=== PATIENT | male | born 1950 | race Caucasian/White ===

== ENCOUNTER → 2020-08-06 14:30 | Outpatient (BNVA) | payer MEDICARE, OTHER, SELFPAY | PROVIDERS: Family Provider Family Medicine; PCP Family Medicine; Visit Provider Podiatrist Foot & Ankle Surgery | DX: M79.671 Pain in right foot (principal); M19.071 Primary osteoarthritis, right ankle and foot | CPT/HCPCS: 73620; 73630 ==

== ENCOUNTER 2021-07-17 15:23 | Outpatient (CLI) | payer OTHER, SELFPAY ==
--- NOTE | 2021-07-17 15:26 | USCV_ITS ---
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
== END 2021-07-17 15:24 | disposition home or self-care (01) ==
LOC: US 15:25
PROVIDERS: PCP Emergency Medicine Emergency Medical Services; Visit Provider Podiatrist Foot & Ankle Surgery
DX: R09.89 Other specified symptoms and signs involving the circulatory and respiratory systems (principal)
CPT/HCPCS: 93923

== ENCOUNTER → 2021-08-27 14:56 | Outpatient (BNVA) | payer OTHER, SELFPAY | PROVIDERS: PCP Emergency Medicine Emergency Medical Services; Referring Provider Emergency Medicine Emergency Medical Services; Visit Provider Specialist | DX: G56.03 Carpal tunnel syndrome, bilateral upper limbs (principal); G56.23 Lesion of ulnar nerve, bilateral upper limbs; Z87.891 Personal history of nicotine dependence | CPT/HCPCS: 95910 ==

== ENCOUNTER 2021-10-23 06:00 | Outpatient (RCR) | payer OTHER, SELFPAY | END 2021-11-22 23:59 | disposition home or self-care (01) | LOC: TOT 06:00 | PROVIDERS: PCP Emergency Medicine Emergency Medical Services; Referring Provider Emergency Medicine Emergency Medical Services; Visit Provider Emergency Medicine Emergency Medical Services | DX: S65.00 Unspecified injury of ulnar artery at wrist and hand level (principal); X58.XXXA Exposure to other specified factors, initial encounter | CPT/HCPCS: 97110; 97165 ==

== ENCOUNTER 2021-11-23 06:00 | Outpatient (RCR) | payer OTHER, SELFPAY | END 2021-12-23 23:59 | disposition home or self-care (01) | LOC: TOT 06:00 | PROVIDERS: PCP Emergency Medicine Emergency Medical Services; Referring Provider Emergency Medicine Emergency Medical Services; Visit Provider Emergency Medicine Emergency Medical Services | DX: S65.00 Unspecified injury of ulnar artery at wrist and hand level (principal) | CPT/HCPCS: 97110; 97165 ==

== ENCOUNTER 2021-12-24 06:00 | Outpatient (RCR) | payer OTHER, SELFPAY | END 2022-01-20 23:59 | disposition home or self-care (01) | LOC: TOT 06:00 | PROVIDERS: PCP Emergency Medicine Emergency Medical Services; Referring Provider Emergency Medicine Emergency Medical Services; Visit Provider Emergency Medicine Emergency Medical Services | DX: S65.00 Unspecified injury of ulnar artery at wrist and hand level (principal) | CPT/HCPCS: 97110 ==

== ENCOUNTER 2022-01-21 06:00 | Outpatient (RCR) | payer OTHER, SELFPAY | END 2022-02-20 23:59 | disposition home or self-care (01) | LOC: TOT 06:00 | PROVIDERS: PCP Emergency Medicine Emergency Medical Services; Referring Provider Emergency Medicine Emergency Medical Services; Visit Provider Emergency Medicine Emergency Medical Services | DX: S65.00 Unspecified injury of ulnar artery at wrist and hand level (principal); X58.XXXD Exposure to other specified factors, subsequent encounter | CPT/HCPCS: 97110; 97168 ==

== ENCOUNTER 2022-02-21 06:00 | Outpatient (RCR) | payer OTHER, SELFPAY | END 2022-03-22 23:59 | disposition home or self-care (01) | LOC: TOT 06:00 | PROVIDERS: PCP Emergency Medicine Emergency Medical Services; Referring Provider Emergency Medicine Emergency Medical Services; Visit Provider Emergency Medicine Emergency Medical Services | DX: S65.00 Unspecified injury of ulnar artery at wrist and hand level (principal); X58.XXXD Exposure to other specified factors, subsequent encounter | CPT/HCPCS: 97110; 97165 ==

== ENCOUNTER → 2022-03-19 14:09 | Outpatient (BNVA) | payer OTHER, SELFPAY | PROVIDERS: PCP Emergency Medicine Emergency Medical Services; Visit Provider Surgery | DX: D50.9 Iron deficiency anemia, unspecified (principal) | CPT/HCPCS: 99213 ==

== ENCOUNTER → 2022-05-05 12:39 | Outpatient (BNVA) | payer OTHER, SELFPAY | PROVIDERS: PCP Emergency Medicine Emergency Medical Services; Visit Provider Specialist | DX: G56.03 Carpal tunnel syndrome, bilateral upper limbs (principal) | CPT/HCPCS: 73110; 80053; 85651; 86140; 86160; 86162; 86200; 86235; 86255; 86376; 86431; 99204 ==

== ENCOUNTER → 2022-06-04 13:12 | Outpatient (BNVA) | payer OTHER, SELFPAY | PROVIDERS: PCP Emergency Medicine Emergency Medical Services; Visit Provider Specialist | DX: G56.03 Carpal tunnel syndrome, bilateral upper limbs (principal); M79.641 Pain in right hand; M79.642 Pain in left hand | CPT/HCPCS: 99214 ==

== ENCOUNTER 2022-06-04 16:22 | Outpatient (CLI) | payer OTHER, SELFPAY | END 2022-06-04 16:23 | disposition home or self-care (01) | LOC: SPT 16:22 | PROVIDERS: PCP Emergency Medicine Emergency Medical Services; Visit Provider Specialist | DX: Z46.89 Encounter for fitting and adjustment of other specified devices (principal); G56.03 Carpal tunnel syndrome, bilateral upper limbs | CPT/HCPCS: 97760; L3908 ==

== ENCOUNTER 2022-07-04 12:39 | Day surgery (SDC) | payer OTHER, SELFPAY ==
[2022-07-03 14:11] VITALS: BMI 21.3
--- NOTE | 2022-07-04 13:09 | P.HPUD_ITS ---
Surgery/Procedure H&P Update DATE OF PROCEDURE: July 04, 2022 DATE H&P PERFORMED: 06/04/22 H&P UPDATE INFORMATION: I have reviewed H&P completed within last 30 days, I have examined patient prior to procedure, No changes to prior documentation and H&P is in [facility] EMR on date indicated PREOP DIAGNOSIS: Left carpal tunnel syndrome PLANNED PROCEDURE: Operation Date: 07/04/22 14:10 Proposed Procedures p LEFT CARPAL TUNNEL RELEASE 98728,G56.00(Left) - Kathrine Keane MD Related Problem List Diagnoses (1) Carpal tunnel syndrome, left:
--- NOTE | 2022-07-04 13:10 | P.ANESASSM_ITS ---
Pre-Anesthetic Assessment Height/Weight: Height 1.68 m Weight 59.874 kg O2 Del Method 07/04/22 12:59 Preop Diagnosis: Left carpal tunnel syndrome Operation Date: 07/04/22 14:10 Proposed Procedures p LEFT CARPAL TUNNEL RELEASE [id number],G56.00(Left) - Kathrine Keane MD Familial anesthetic complications: none Was Beta Harry taken within 24 hours: Yes Was Clonidine taken within 24 hours: N/A Last intake: Intake Last Liquid Date 07/04/22 Last Liquid Time 10:00 Last Solid Date 07/03/22 Last Solid Time 00:00 Social No alcohol and No tobacco Exam alert, oriented x 3, clear to auscultation bilaterally and regular rate & rhythm Airway Mallampati: Class III Dentition: loose Comments: Comments: teeth my come out during procedure - patient aware Pulmonary None reported CV/HEM Hypertension vasospasm of arteries Metabolic Hyperlipidemia Anesthetic Plan ASA status: 3 Anesthesia: MAC and Regional (specify below) Risk of > 500 ml blood loss (7ml/kg in children): No Medications/Allergies Home Medications Medication Instructions Recorded Confirmed Last Taken Type aspirin 81 mg tablet,delayed 81 mg PO DAILY 07/03/20 07/04/22 07/04/22 03:00 History release (Adult Low Dose Aspirin) isosorbide mononitrate 30 mg 30 mg PO DAILY 01/24/21 07/04/22 07/03/22 19:00 History tablet,extended release 24 hr metoprolol tartrate 50 mg tablet 25 mg PO DAILY 01/24/21 07/04/22 07/04/22 History nitroglycerin 0.4 mg sublingual 0.4 mg sublingual Q5M PRN Chest 01/24/21 07/03/22 Unknown History tablet Pain simvastatin 20 mg tablet 20 mg PO DAILY 01/24/21 07/04/22 07/03/22 History Work shoes with Custom Molded #1 ea 09/13/21 06/04/22 Unknown Rx Orthotics COCK UP SPLINT #1 ea 06/04/22 06/04/22 Unknown Rx Allergies Allergy/AdvReac Type Severity Reaction Status Date / Time No Known Allergies Allergy Verified 06/05/22 08:30 [facility] Anesthesia Medical History Accelerated hypertension Blood vessel spasm CAD (coronary artery disease) High cholesterol History of coronary angiogram Hyperlipidemia Low back pain Surgical History History of colonoscopy Hx of hernia repair Family History Grandmother Diabetes Grandfather CAD (coronary artery disease) Mother Diabetes Denies family history of Hypertension Social History Smoking and tobacco status: former smoker Alcohol intake: former Current occupational status: retired Data Anesthesia Cardiac Studies: No Data to Display
[2022-07-04] MEDS: CELEcoxib 200 mg Capsule 400 MG PO (13:13)
[2022-07-04] MEDS: acetaminophen 1,000 MG/100 ML PIGGYBACK 400 MG IV (13:13)
[2022-07-04] MEDS: sodium chloride 0.9% 1,000 ML 30 ML IV (13:13)
[2022-07-04] MEDS: ceFAZolin 2,000 MG in sodium chloride 0.9% (plus) 50 ML 100 MG IV (13:20)
[2022-07-04 14:26] VITALS: BP 120/53; PULSE 51; RESP 16; TEMP 36.2; O2SAT 100
[2022-07-04 14:30] VITALS: BP 117/52; PULSE 51; RESP 16; O2SAT 99
[2022-07-04 14:35] VITALS: BP 133/57; PULSE 49; RESP 16; O2SAT 98
--- NOTE | 2022-07-04 14:38 | ANE.PACU2 ---
Inpatient post-anesthesia follow up: Airway intact: Yes Vital signs: Temperature 97.1 F Pulse Rate 49 Respiratory Rate 16 Blood Pressure 133/57 Pulse Oximetry 98 Oxygen Delivery Me thod Room Air Oxygen Flow Rate Fraction of Inspir ed Oxygen Hydration adequate: Yes Nausea and vomiting: No Pain level: 1 Mental status: Baseline
[2022-07-04 14:42] VITALS: BP 145/70; PULSE 49; RESP 16; TEMP 36.1; O2SAT 100
[2022-07-04 14:45] VITALS: BP 150/74; PULSE 48; RESP 16; TEMP 36.6; O2SAT 98
--- NOTE | 2022-07-04 14:47 | P.OP_ITS ---
Operative Report Date of procedure: July 04, 2022 Pre-op diagnosis: Left carpal tunnel syndrome Post-op diagnosis: Left carpal tunnel syndrome Procedure done: Left carpal tunnel release Pathology: none sent Surgeon: Kathrine Keane Mold Maker Plastic Molds: None Anesthesia: MAC (With [place] block, ASA 3) Estimated blood loss (mL): 1 Tourniquet time (min): 35 (At 250 mmHg) IV fluids (mL): 700 Urine output (mL): 0 (No [place]aux) Complications: None Findings: Compression across the carpal canal consistent with carpal tunnel syndrome Condition: stable Disposition: PACU (Then discharge home with family) Brief History: This 71-year-old gentleman presented with complaints consistent with carpal tunnel syndrome. He had numbness and tingling for at least the past 2 years. At times, his fingers will actually also become numb and turn white . He does have decreased sensation to all fingers and at times burning sensation. EMG and nerve conduction study confirmed moderately severe entrapment of the median nerve bilaterally as well as bilateral ulnar neuropathy at the elbow. Risks and complications were discussed with the patient, and he wished to proceed with surgical intervention. Consents were signed. Procedure: The patient was brought to the operating theater. He had a Gerard block with MAC. The tourniquet was elevated to 250 mmHg for a total tourniquet time of 35 minutes. The patient was also given Ancef 2 g preoperatively. The arm was then prepped and draped with DuraPrep in usual fashion with the arm draped free. A surgical pause was performed. At the time, the surgical pause, we confirmed the site and side of surgery. We also confirmed the patient's identity, appropriate and timely administration of preoperative antibiotics and preoperative surgical markings. An incision was then made along the thenar crease. The incision crossed the wrist joint in a curvilinear fashion. Dissection continued through skin and soft tissues using a scalpel. The palmaris longus was identified along with the transverse carpal ligament. Each of these was released carefully to avoid injury to the median nerve. We were able to dissect gently into the carpal canal which was noted to be quite tight with significant compression across the median nerve. The canal was subsequently palpated to assure there was no bony encroachment upon the nerve. There was a quite thickened fibrous tissue within the canal, and this was opened longitudinally as well. The canal was then palpated distally and proximally to assure that my small finger was passed easily without impingement. Finding this to be so, attention was directed to closure. The wound was irrigated with ropivacaine plain. It was then closed with 3-0 nylon in an interrupted mattress fashion. Sterile dressing was then placed consisting of Dermabond, OpSite, fluffed fluffs, sterile soft roll, and an Burke w rap. The tourniquet was released after 35 minutes. There were no complications. There were no specimens. The procedure was well tolerated. Plan is the patient will be discharged home. Related Problem List Diagnoses (1) Carpal tunnel syndrome, left:
[2022-07-04 15:00] VITALS: BP 151/75; PULSE 50; RESP 17; TEMP 36.6; O2SAT 99
--- NOTE | 2022-07-04 15:57 | SUR.PHASEII ---
[address] home and instructed pt with help of dr Keane that he needs his to drive him home and pt verbalized understanding [facility] called and spoke with Jolynn and she stated that the prescription for hydrocodone has not been processed and she would cancel this prescription.
== END 2022-07-04 16:10 | disposition home or self-care (01) ==
PROVIDERS: PCP Emergency Medicine Emergency Medical Services; Visit Provider Specialist
PROC: (CPT 64721; principal; 2022-07-04 14:00)
DX: G56.02 Carpal tunnel syndrome, left upper limb (principal); I10 Essential (primary) hypertension; E78.5 Hyperlipidemia, unspecified; Z79.82 Long term (current) use of aspirin; I25.10 Atherosclerotic heart disease of native coronary artery without angina pectoris; Z87.891 Personal history of nicotine dependence
CPT/HCPCS: 64721; J2704; J3010; J3490; J7030

== ENCOUNTER → 2022-07-16 14:48 | Outpatient (BNVA) | payer OTHER, SELFPAY | PROVIDERS: PCP Emergency Medicine Emergency Medical Services; Visit Provider Specialist | DX: G56.02 Carpal tunnel syndrome, left upper limb (principal) | CPT/HCPCS: 99024 ==

== ENCOUNTER → 2022-08-06 12:27 | Outpatient (BNVA) | payer OTHER, SELFPAY | PROVIDERS: PCP Emergency Medicine Emergency Medical Services; Visit Provider Internal Medicine | DX: D50.9 Iron deficiency anemia, unspecified (principal); M47.892 Other spondylosis, cervical region; I10 Essential (primary) hypertension; E78.5 Hyperlipidemia, unspecified; Z79.899 Other long term (current) drug therapy; R76.8 Other specified abnormal immunological findings in serum; M79.641 Pain in right hand; M79.642 Pain in left hand; Z11.59 Encounter for screening for other viral diseases; H33.302 Unspecified retinal break, left eye | CPT/HCPCS: 36415; 72040; 73120; 82550; 82607; 83735; 84100; 84443; 86704; 86803; 87340; 99204 ==

== ENCOUNTER 2022-11-10 01:00 | Day surgery (SDC) | payer OTHER, SELFPAY ==
[2022-11-06 09:41] VITALS: BMI 21.7
== END 2022-11-10 23:00 | disposition home or self-care (01) ==
LOC: GILAB 12-23 14:52
PROVIDERS: PCP Emergency Medicine Emergency Medical Services; Visit Provider Surgery
DX: I73.9 Peripheral vascular disease, unspecified (principal); L85.1 Acquired keratosis [keratoderma] palmaris et plantaris; M21.621 Bunionette of right foot; M21.40 Flat foot [pes planus] (acquired), unspecified foot; M20.40 Other hammer toe(s) (acquired), unspecified foot
CPT/HCPCS: 11721; 17110

== ENCOUNTER 2023-03-05 12:02 | Outpatient (CLI) | payer OTHER, SELFPAY ==
--- NOTE | 2023-03-05 12:24 | USCV_ITS ---
Benjamin Castellano Age: 72 Gender: M : 1950 Exam Date: 03/05/2023 12:34 Ordering Phys: Benjamin Gallegos DO Technologist: Exam Location: [facility] [place] Indication: screening aaa HISTORY: Diameter (cm) AP x Transverse x Length Velocity (cm/s) Waveform Prox Aorta: 0.00 x 1.83 x 77.70 Mid Aorta: 1.76 x 1.86 x 88.40 Distal Aorta: 1.55 x 1.51 x 88.20 Right Iliac Prox: 0.72 x 0.89 x 101.50 Left Iliac Prox: 0.91 x 0.93 x 164.30 Stent Prox Landing x x Aneurysmal Sac Max x x Lt Lat Sac Dim Rt Lat Sac Dim Stent Dist Landing x x Right Iliac Stent x x Left Iliac Stent x x Right Renal Art Left Renal Art FINDINGS: wnl CONCLUSIONS No evidence of abdominal aortic or bilateral iliac aneurysm. Randall Agustin MD (Electronically Signed) Final Date: 05 March 2023 16:26 S
== END 2023-03-05 12:03 | disposition home or self-care (01) ==
LOC: RAD 12:08
PROVIDERS: PCP Emergency Medicine Emergency Medical Services; Visit Provider Emergency Medicine Emergency Medical Services
DX: Z13.6 Encounter for screening for cardiovascular disorders (principal)
CPT/HCPCS: 76706

== ENCOUNTER → 2023-05-05 15:03 | Outpatient (BNVA) | payer OTHER, SELFPAY | PROVIDERS: PCP Emergency Medicine Emergency Medical Services; Visit Provider Internal Medicine | DX: R76.8 Other specified abnormal immunological findings in serum (principal); R09.89 Other specified symptoms and signs involving the circulatory and respiratory systems; M79.641 Pain in right hand; M79.642 Pain in left hand; E53.8 Deficiency of other specified B group vitamins; R79.89 Other specified abnormal findings of blood chemistry | CPT/HCPCS: 99214 ==

== ENCOUNTER → 2023-08-19 15:05 | Outpatient (BNVA) | payer OTHER, SELFPAY | PROVIDERS: PCP Emergency Medicine Emergency Medical Services; Visit Provider Internal Medicine | DX: R76.8 Other specified abnormal immunological findings in serum (principal); M79.641 Pain in right hand; M79.642 Pain in left hand; E53.8 Deficiency of other specified B group vitamins; R79.89 Other specified abnormal findings of blood chemistry | CPT/HCPCS: 99214 ==

== ENCOUNTER → 2023-12-22 14:33 | Outpatient (BNVA) | payer OTHER, SELFPAY | PROVIDERS: PCP Emergency Medicine Emergency Medical Services; Visit Provider Podiatrist Foot & Ankle Surgery | DX: M21.621 Bunionette of right foot (principal); M21.41 Flat foot [pes planus] (acquired), right foot; M21.42 Flat foot [pes planus] (acquired), left foot; M20.41 Other hammer toe(s) (acquired), right foot; M20.42 Other hammer toe(s) (acquired), left foot; I73.9 Peripheral vascular disease, unspecified; L84 Corns and callosities | CPT/HCPCS: 99213 ==

== ENCOUNTER 2023-12-28 14:22 | Emergency (ER) | payer OTHER, SELFPAY ==
[2023-12-28 15:52] VITALS: BP 149/81; PULSE 75; RESP 12; TEMP 36.6; O2SAT 97
[2023-12-28 16:55] LABS: Basophils # 0.1 10^3/uL (0.0-0.1); Basophils % 0.7 %; Eosinophils # 0.1 10^3/uL (0.0-0.8); Eosinophils % 1.5 %; Lymphocytes # 1.2 10^3/uL (0.8-4.8); Lymphocytes % 16.6 %; Mean Corpuscular HGB Conc 32.6 g/dL (30-55); Mean Corpuscular Hemoglobin 30.4 pg (27-33); Mean Corpuscular Volume 93.1 fl (82-101); Mean Platelet Volume 10.1 fL (7.4-10.4); Monocytes # 0.5 10^3/uL (0.2-0.9); Monocytes % 7.3 %; Neutrophils # 5.46 10^3/uL (1.8-7.7); Neutrophils % 73.6 %; Nucleated Red Blood Cells % 0 %; Platelet Count 300 10^3/cmm (157-399); Red Blood Count 4.51 10^6/uL (3.85-5.65); Red Cell Distribution Width 12.1 % (12.1-15.1); White Blood Count 7.41 10^3/uL (3.29-11.43)
[2023-12-28 17:07] LABS: Alanine Aminotransferase 22 U/L (0-41); Albumin Level 4.3 g/dL (3.5-5.2); Alkaline Phosphatase 60 U/L (40-130); Anion Gap 15.6 (5-19); Aspartate Amino Transferase 29 U/L (0-40); Blood Urea Nitrogen 7 mg/dL (8-23); Calcium 9.7 mg/dL (8.5-10.5); Carbon Dioxide 29 mmol/L (22-29); Chloride 102 mmol/L (98-107); Globulin 2.6 g/dL (1.3-4.6); Glucose 81 mg/dL (65-115); Osmolality Calculated 293 mOsm/kg (285-295); Potassium 3.6 mmol/L (3.5-5.1); Sodium 143 mmol/L (136-145); Total Bilirubin 0.5 mg/dL (0.15-1.2); Total Protein 6.9 g/dL (6.6-8.7)
[2023-12-28 17:55] VITALS: BP 160/79
[2023-12-28 18:02] LABS: Add Urine Microscopic? YES; Bilirubin Urine Neg (Negative); Blood Urine 2+ (Negative); Glucose Urine UA Norm (Normal); Ketones Urine 1+ (Negative); Leukocyte Esterase Urine Negative (Negative); Nitrate Urine Negative (Negative); Protein Urine Neg (Negative); Specific Gravity, Urine 1.005 (1.005-1.030); Urine Appearance Clear (CLEAR); Urine Color Straw (Yellow); Urobilinogen Urine Norm (Negative); pH Urine 7 (5-7)
[2023-12-28 18:07] LABS: Add Urine Culture? No; Bacteria Urine TRACE /hpf; RBC Urine RARE /hpf (0-2); WBC Urine RARE /hpf (0-5)
--- NOTE | 2023-12-28 18:27 | W.ED.MALEGU ---
HPI - Male Genitourinary General: Chief complaint: Urogenital-Male Stated complaint: sent from [place], bad urine Time Seen by Provider: 12/28/23 17:10 Source: patient and family Mode of arrival: ambulatory Limitations: no limitations History of Present Illness: Patient presents emergency department today for evaluation treatment of hematuria. Patient states he just noticed today a little bit of pink in his urine. Patient chronically has dribbling and has noticed a little bit in his underwear. Patient reports dealing with dysuria off and on for years but does not notice any acute changes. Patient also reports off-and-on low back pain without anything specifically today. No abdominal pains. Patient is still tolerating oral intake. Patient typically is seen by the MD. Patient is on a baby aspirin daily but no other blood thinning medication. Review of Systems General: Reports: 10 or more systems reviewed and unremarkable except in HPI and below PFSH ED PFSH: Medical History History of coronary angiogram CAD (coronary artery disease) Hyperlipidemia Low back pain Accelerated hypertension High cholesterol Blood vessel spasm Surgical History History of colonoscopy Hx of hernia repair Family History Grandmother Diabetes Grandfather CAD (coronary artery disease) Mother Diabetes Denies family history of Hypertension Social History Smoking and tobacco/nicotine status: former use of tobacco/nicotine Alcohol intake: former Substance/Drug Use: never Current occupational status: retired Physical Exam Const: COMMON NORMALS: no acute distress, average body habitus, patient oriented x3 and alert HENMT: COMMON NORMALS: normocephalic, atraumatic, hearing grossly normal bilaterally and moist oral mucous membranes HEAD & SCALP: normocephalic and atraumatic Eye: COMMON NORMALS: Equal, round and reactive pupils present, EOMs intact bilaterally and conjunctivae normal CONJUNCTIVA: Yes conjunctivae normal PUPIL: Yes Equal, round and reactive pupils present Neck/C-Spine: COMMON NORMALS: no JVD Lymph: LYMPHATIC: no lymphadenopathy noted Resp: COMMON NORMALS: normal respiratory effort, No retractions and No use of accessory muscles Cardio: COMMON NORMALS: no JVD and regular rate RATE: regular rate GI: OTHER: Abdomen soft. Nontender. Back/Pelvis: OTHER: Nonspecific low back pain on palpation. Nonreproducible. Extremity: COMMON NORMALS: normal to inspection, full ROM and capillary refill normal Neuro: COMMON NORMALS: patient oriented x3 SENSORIUM/ORIENTATION: Yes alert CRANIAL NERVES: Yes CN normal except as noted SPEECH: speech normal Psych: COMMON NORMALS: cooperative, normal affect, speech normal and activity/motor behavior normal SPEECH: Yes normal speech Course Vital Signs: Vital signs: Vital Signs Temperature 97.8 F 12/28/23 19:38 Pulse Rate 75 12/28/23 19:38 Respiratory Rate 12 12/28/23 19:38 Blood Pressure 160/79 12/28/23 19:38 Pulse Oximetry 97 12/28/23 19:38 Oxygen Delivery Me thod Room Air 12/28/23 15:52 MDM - Male Medical Decision Making Patient presents emergency department today accompanied by family. Patient seems to have a bit of dementia as he is very fixated on his cardiac history and cardiac medications from several years ago. His symptoms of hematuria seem to be new today but issues with dribbling, dysuria, and low back pain seem to be somewhat chronic. Lab work is generally unremarkable. However, patient's urinalysis is confirmatory for hematuria. However, patient does not seem to have a large bacterial load. Discussed with patient and different treatment abilities. I did offer to them imaging of the urinary tract to evaluate further for potential prostate enlargement or inflammation, masses, etc. Or, patient can be treated for suspected infection while we culture of his urine over the next couple of days. After discussion with patient and , they will proceed on with antibiotic therapy while we wait for urine cultures to post. They [facility] his [facility] in a few days to make sure all signs and symptoms of hematuria have resolved. However, we discussed that if this is related to infection, infection should improve over the next couple of days and that if not, he needs to be [facility] or, should return back to the emergency department. If he has any abdominal pains, vomiting, or inability to pass urine he needs to return to the ER immediately. Patient verbalizes understanding and agreement to treatment plan. Differential Diagnosis Likely urinary tract infection; Unlikely priapism, urethritis, epididymitis, genital herpes simplex, prostatitis or acute retention of urine Lab Data 12/28/23 16:20 12/28/23 16:20 Laboratory Results WBC 7.41 10^3/uL (3.29-11.43) 12/28/23 16:20 RBC 4.51 10^6/uL (3.85-5.65) 12/28/23 16:20 Hgb 13.70 g/dL (11.27-16.99) 12/28/23 16:20 Hct 42.0 % (37-53) 12/28/23 16:20 MCV 93.1 fl (82-101) 12/28/23 16:20 MCH 30.4 pg (27-33) 12/28/23 16:20 MCHC 32.6 g/dL (30-55) 12/28/23 16:20 RDW 12.1 % (12.1-15.1) 12/28/23 16:20 Plt Count 300 10^3/cmm (157-399) 12/28/23 16:20 MPV 10.1 fL (7.4-10.4) 12/28/23 16:20 Neut % (Auto) 73.6 % 12/28/23 16:20 Lymph % (Auto) 16.6 % 12/28/23 16:20 [place] % (Auto) 7.3 % 12/28/23 16:20 Eos % (Auto) 1.5 % 12/28/23 16:20 Baso % (Auto) 0.7 % 12/28/23 16:20 Neut # (Auto) 5.46 10^3/uL (1.8-7.7) 12/28/23 16:20 Lymph # (Auto) 1.2 10^3/uL (0.8-4.8) 12/28/23 16:20 [place] # (Auto) 0.5 10^3/uL (0.2-0.9) 12/28/23 16:20 Eos # (Auto) 0.1 10^3/uL (0.0-0.8) 12/28/23 16:20 Baso # (Auto) 0.1 10^3/uL (0.0-0.1) 12/28/23 16:20 Nucleated RBC % (auto) 0 % 12/28/23 16:20 Nucleated RBCs # 0.0 /100WBC 12/28/23 16:20 Sodium 143 mmol/L (136-145) 12/28/23 16:20 Potassium 3.6 mmol/L (3.5-5.1) 12/28/23 16:20 Chloride 102 mmol/L (98-107) 12/28/23 16:20 Carbon Dioxide 29 mmol/L (22-29) 12/28/23 16:20 Anion Gap 15.6 (5-19) 12/28/23 16:20 BUN 7 mg/dL (8-23) L 12/28/23 16:20 Creatinine 0.8 mg/dL (0.7-1.2) 12/28/23 16:20 GFR Calculation Not Reportable 12/28/23 16:20 Glucose 81 mg/dL (65-115) 12/28/23 16:20 Calculated Osmolality 293 mOsm/kg (285-295) 12/28/23 16:20 Calcium 9.7 mg/dL (8.5-10.5) 12/28/23 16:20 Total Bilirubin 0.5 mg/dL (0.15-1.2) 12/28/23 16:20 AST 29 U/L (0-40) 12/28/23 16:20 ALT 22 U/L (0-41) 12/28/23 16:20 Alkaline Phosphatase 60 U/L (40-130) 12/28/23 16:20 Total Protein 6.9 g/dL (6.6-8.7) 12/28/23 16:20 Albumin 4.3 g/dL (3.5-5.2) 12/28/23 16:20 Globulin 2.6 g/dL (1.3-4.6) 12/28/23 16:20 Urine Color Straw (Yellow) 12/28/23 17:12 Urine Appearance Clear (CLEAR) 12/28/23 17:12 Urine pH 7 (5-7) 12/28/23 17:12 Ur Specific [place] 1.005 (1.005-1.030) 12/28/23 17:12 Urine Protein Neg (Negative) 12/28/23 17:12 Urine Glucose (UA) Norm (Normal) 12/28/23 17:12 Urine Ketones 1+ (Negative) H 12/28/23 17:12 Urine Blood 2+ (Negative) H 12/28/23 17:12 Urine Nitrate Negative (Negative) 12/28/23 17:12 Urine Bilirubin Neg (Negative) 12/28/23 17:12 Urine Urobilinogen Norm mg/dL (Negative) 12/28/23 17:12 Ur Leukocyte Esterase Negative (Negative) 12/28/23 17:12 Urine RBC Rare /hpf (0-2) 12/28/23 17:12 Urine WBC Rare /hpf (0-5) 12/28/23 17:12 Ur Squamous Epith Cells None /hpf (0-5) 12/28/23 17:12 Amorphous Sediment Not Reportable 12/28/23 17:12 Urine Bacteria Trace /hpf (NONE) 12/28/23 17:12 No radiology studies performed this visit Discharge Plan Discharge Patient Disposition: Home Clinical Impression: Hematuria Condition: Stable Prescriptions: New Cipro 500 mg tablet 500 mg PO Q12H Qty: 14 0RF No Action aspirin [Adult Low Dose Aspirin] 81 mg tablet,delayed release (DR/EC) 81 mg PO DAILY isosorbide mononitrate 30 mg tablet extended release 24 hr 30 mg PO DAILY simvastatin 20 mg tablet 20 mg PO DAILY metoprolol tartrate 50 mg tablet 25 mg PO BID nitroglycerin 0.4 mg tablet, sublingual 0.4 mg sublingual Q5M PRN (Reason: Chest Pain) Rx Instructions: do not exceed 3 doses per episode (DME) COCK UP SPLINT See Rx Instructions .ROUTE .MEDSUPPLY Qty: 1 0RF Rx Instructions: [place] [facility] [place] Work shoes with Custom Molded Orthotics See Rx Instructions .Route .MEDSUPPLY Qty: 1 0RF Rx Instructions: As directed by [facility] [place] [place] [facility] [place] hydrocolloid dressing 0.39 X 18 bandage See Rx Instructions .Route Qty: 5 6RF Rx Instructions: [place] directed [place] [facility] [place] Orthopedic shoes with custom insoles See Rx Instructions .Route .MEDSUPPLY Qty: 1 0RF Rx Instructions: As directed by [facility] [place] [facility] [place] Orthopedic boots with custom insoles See Rx Instructions .Route .MEDSUPPLY Qty: 1 0RF Rx Instructions: As directed by [facility] [place] [place] Work shoes with Custom Molded Orthotics See Rx Instructions .Route .MEDSUPPLY Qty: 1 0RF Rx Instructions: As directed J P [employer] O peg 3350-electrolytes [Golytely] 236-22.74-6.74 -5.86 gram recon soln 240 ml PO Q10M Qty: 4000 0RF Rx Instructions: until fecal effluent is clear hydroxychloroquine 200 mg tablet 200 mg PO BID Qty: 60 3RF Discharge Orders: Discharge ED (Routine); Ordered 12/28/23 Ordered By: Guerda Bowen Referrals: Benjamin Gallegos, [Primary Care Provider] - Discharge Diet: Usual diet Discharge Activity: Increase activity as tolerated Patient Instructions: Hematuria - Male Activity Restrictions/Additional Instructions: Lab work today showed no acute concerns but your urinalysis does confirm findings of blood in your urine. There is no significant signs of infection so I am sending the urine for culture over the next 48 hours to look further into a bacterial cause. It is very common to have bleeding with infection but, would be concerned about other issues if there was no bacteria found on the culture. You should notice significant improvement of your bleeding in the next several days with antibiotic treatment, otherwise, you need to follow-up with your primary care doctor to further discuss any residual bleeding as you may need imaging or referral to urology. However, if you develop severe pain in your lower abdomen, any difficulty with being able to urinate, fever, vomiting or scrotal/penis swelling you need to be seen and reevaluated in the ER. Coding Level of Care Code ED Immunopathologist for Demetris Garcia
[2023-12-28] MEDS: ciprofloxacin 500 mg Tablet PO (18:56)
[2023-12-28 19:38] VITALS: BP 160/79; PULSE 75; RESP 12; TEMP 36.6; O2SAT 97
== END 2023-12-28 19:39 | disposition home or self-care (01) ==
PROVIDERS: Emergency Medicine; Physician Assistant; Emergency Provider Physician Assistant; PCP Emergency Medicine Emergency Medical Services
DX: R31.9 Hematuria, unspecified (principal); Z79.82 Long term (current) use of aspirin; I25.10 Atherosclerotic heart disease of native coronary artery without angina pectoris; E78.5 Hyperlipidemia, unspecified; I10 Essential (primary) hypertension; Z87.891 Personal history of nicotine dependence
CPT/HCPCS: 36415; 80053; 81001; 85025; 87086; 99283

== ENCOUNTER 2024-02-01 10:59 | Outpatient (CLI) | payer OTHER, SELFPAY ==
--- NOTE | 2024-02-01 11:12 | USCV_ITS ---
Benjamin Castellano Age: 73 Gender: M : 1950 Exam Date: 02/01/2024 11:16 Ordering Phys: Benjamin Gallegos DO Technologist: CT Exam Location: [facility] – [place] Indication: ? aaa HISTORY: Diameter (cm) AP x Transverse x Length Velocity (cm/s) Waveform Prox Aorta: 1.80 x 1.40 x 86.00 Triphasic Mid Aorta: 1.50 x 1.30 x 98.00 Triphasic Distal Aorta: 1.30 x 1.40 x 111.00 Triphasic Right Iliac Prox: 1.10 x 1.20 x 101.00 Triphasic Left Iliac Prox: 1.10 x 1.30 x 112.00 Triphasic Stent Prox Landing x x Aneurysmal Sac Max x x Lt Lat Sac Dim Rt Lat Sac Dim Stent Dist Landing x x Right Iliac Stent x x Left Iliac Stent x x Right Renal Art Left Renal Art FINDINGS: Comparison:. 03/05/23 No evidence of abdominal aortic or bilateral iliac aneurysm. Ectatic abdominal aorta with evidence of atherosclerotic plaque noted. No evidence of abdominal aortic aneurysm. CONCLUSIONS No evidence of abdominal aortic or bilateral iliac aneurysm. Atherosclerotic plaque is noted in the abdominal aorta. No change seen from prior study. Dr. Rosalinda Dowling DO (Electronically Signed) Final Date: 02 February 2024 08:41 S
== END 2024-02-01 11:00 | disposition home or self-care (01) ==
LOC: RAD 10:59
PROVIDERS: PCP Emergency Medicine Emergency Medical Services; Visit Provider Emergency Medicine Emergency Medical Services
DX: Z13.6 Encounter for screening for cardiovascular disorders (principal); I70.0 Atherosclerosis of aorta; I77.811 Abdominal aortic ectasia
CPT/HCPCS: 76706

== ENCOUNTER → 2024-05-03 14:02 | Outpatient (BNVA) | payer OTHER, SELFPAY | PROVIDERS: PCP Emergency Medicine Emergency Medical Services; Visit Provider Internal Medicine Rheumatology | DX: I73.00 Raynaud's syndrome without gangrene (principal); R76.8 Other specified abnormal immunological findings in serum; Z87.891 Personal history of nicotine dependence | CPT/HCPCS: 99214 ==

== ENCOUNTER → 2024-12-15 15:09 | Outpatient (BNVA) | payer OTHER, SELFPAY | PROVIDERS: PCP Nurse Practitioner Family; Visit Provider Podiatrist Foot & Ankle Surgery | DX: M21.621 Bunionette of right foot (principal); M21.41 Flat foot [pes planus] (acquired), right foot; M21.42 Flat foot [pes planus] (acquired), left foot; M20.41 Other hammer toe(s) (acquired), right foot; M20.42 Other hammer toe(s) (acquired), left foot; I73.9 Peripheral vascular disease, unspecified; M79.671 Pain in right foot; M79.672 Pain in left foot | CPT/HCPCS: 99213 ==

== ENCOUNTER → 2025-03-07 14:52 | Outpatient (BNVA) | payer MEDICARE, OTHER, SELFPAY | PROVIDERS: PCP Nurse Practitioner Family; Visit Provider Nurse Practitioner Family | DX: J02.9 Acute pharyngitis, unspecified (principal) | CPT/HCPCS: 87071; 87880 ==

== ENCOUNTER → 2025-05-02 13:40 | Outpatient (BNVA) | payer OTHER, SELFPAY | PROVIDERS: PCP Emergency Medicine Emergency Medical Services; Visit Provider Internal Medicine Rheumatology | DX: R76.8 Other specified abnormal immunological findings in serum (principal); I73.00 Raynaud's syndrome without gangrene | CPT/HCPCS: 99214 ==

== ENCOUNTER 2025-05-18 23:14 | Emergency (ER) | payer OTHER, MEDICARE, SELFPAY ==
--- OUTSIDE RECORDS SUMMARY | 2024-06-02 10:00 | XMS_ITS | Encounter Summary ---
Author Name [facility] [facility] [place] [facility] [place] Address [address] [place] [address] Care Team Providers Care Ice Cutter Name Role Phone MEG JUSTIN Primary Care Provider Unavailabl e Insurance Providers: All historical and current Section Date Range: From patient's date of to the date document was created. This section includes the names of all active insurance providers for the patient. Insurance Provider Type of Coverage Plan Name Start of Policy Coverage End of Policy Coverage Group Number Member ID Insurance Provider's Telephone Number Policy Snyder's Name Patient's Relationship to Policy Snyder MEDICARE (WNR) MEDICARE (M) PART B Jul 24, 2017 PART B [id number] ADRIÁNBERTHA MICHELE PATIENT MEDICARE (WNR) MEDICARE (M) PART A Jul 24, 2017 PART A [id number] [phone] BERTHA SAMPSON CHARD PATIENT MEDICARE (WNR) MEDICARE (M) PART A Jul 24, 2017 PART A [id number] BERTHA SAMPSON CHARD PATIENT MEDICARE (WNR) MEDICARE (M) PART B Jul 24, 2017 PART B [id number] [phone] ITALONILSBERTHA LANEYD PATIENT -FO R-LIFE [employer] FOR LIFE WNR Jul 24, 2017 FOR LIFE [id number] [phone] ADRIÁNBERTHA MICHELE PATIENT Selected Encounter This section includes the information on record at [place] for the Encounter. 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 Date/Time Primary/Secondary Diagnosis Diagnosis Name Provider Source Jun 02, 2024 03:07 PM PRIMARY Segmental and somatic dysfunction of cervical region MARY LOU RESTREPO [facility] Jun 02, 2024 03:07 PM SECONDARY Cervicalgia MARY LOU RESTREPO [facility] Jun 02, 2024 03:07 PM SECONDARY Other intervertebral disc degeneration, lumbosacral region MARY LOU RESTREPO [facility] Jun 02, 2024 03:07 PM SECONDARY Pain in thoracic spine MARY LOU RESTREPO [facility] Jun 02, 2024 03:07 PM SECONDARY Segmental and somatic dysfunction of lumbar region MARY LOU RESTREPO [facility] Jun 02, 2024 03:07 PM SECONDARY Segmental and somatic dysfunction of pelvic region LAUROMARY LOU E [facility] Jun 02, 2024 03:07 PM SECONDARY Segmental and somatic dysfunction of thoracic region LAUROMARY LOU E [facility] Plan of Treatment: Future Appointments (+ 6 months) and Future Tests (+/- 45 days) The Plan of Treatment section includes future care activities for the patient from all [place] treatmentfacilities. This section includes future appointments and future orders which are active, pending or scheduled. Future Appointments This section includes appointments that were scheduled to occur 6 months from the date of the Encounter, up to a maximum of 20 appointments. The data comes from all [place] treatment facilities. Appointment Date/Time Appointment Type Appointme nt Facility Name Jun 09, 2024 01:30 PM [facility] Jun 16, 2024 12:30 PM [facility] Jun 16, 2024 12:32 PM [facility] Jun 16, 2024 01:30 PM [facility] Jul 07, 2024 01:00 PM [facility] Jul 07, 2024 02:00 PM [facility] Aug 01, 2024 02:00 PM [facility] Aug 04, 2024 12:30 PM [facility] Aug 04, 2024 12:31 PM [facility] Aug 04, 2024 01:00 PM [facility] Aug 04, 2024 01:20 PM [facility] Aug 11, 2024 02:00 PM [facility] Aug 25, 2024 01:20 PM [facility] Aug 25, 2024 02:00 PM [facility] - MEDICINE [facility] Sep 29, 2024 01:40 PM [facility] Sep 29, 2024 02:00 PM [facility] - MEDICINE [facility] Oct 27, 2024 01:00 PM AM[facility]UL[facility]ORY - MEDICINE [facility] Oct 27, 2024 02:00 PM AM[facility]ULATORY - MEDICINE [facility] Nov 10, 2024 03:00 PM AMBULATORY - MEDICINE [facility] Dec 01, 2024 01:30 PM AMBULATORY - MEDICINE [facility] Lab Results: +/- 30 days of the encounter This section includes the Chemistry and Hematology Lab Results on record with [place] for the patient. Radiology Reports and Pathology Reports are provided separately, in subsequent sections. Lab Results This section contains the Chemistry/Hematology Results that were resulted 30 days before or 30 daysafter the date of the Encounter. Date/Time Source Result Type Result - Unit Interpretation Reference Range Specimen Type Comment May 04, 2024 08:00 AM [facility] OCCULT BLOOD FIT X1 SCREEN FECES Specimen Typ e: FECES No comment entered. Ordering Provider: LEXI MONTGOMERY Report Released Date/Time: April 20, 2024 09:17 AM Reporting Lab: [facility] [address] [place] [address] Performing Lab: [facility] [address] [place] [address] OCCULT BLOOD (FIT) #1 OF 1 Negative Vital Signs: All taken on the encounter date This section contains inpatient and outpatient Vital Signs collected on the date of the Encounter. Date/Time Temperature Pulse Blood Pressure Respiratory Rate SP02 Pain Height Weight Body Mass Index Source Jun 02, 2024 03:00 PM 98.4 89 143/74 [facility] Social History: Smoking Status (Most current) and Tobacco Use (All prior to encounter date) This section includes the most current, and the historical, smoking and tobacco- related health factors from the [place] facility where the Encounter took place. Current Smoking Status This section includes the most current smoking, or tobacco-related health factor, from the [place] facility where the Encounter took place. Date/Time Current Smoking Status Comment Facil ity Jan 19, 2024 03:00 PM VA-TOBACCO FORMER USER [facility] Tobacco Use History This section includes a history of the smoking, or tobacco-related health factors, that were collected on or before the date of the Encounter. The data comes from the [place] facility where the Encounter took place. Date/Time Smoking Status/Tobacco Use Comment F acility Jan 19, 2024 03:00 PM VA-TOBACCO QUIT 15 YRS OR MORE [facility] Jan 15, 2023 03:00 PM VA-TOBACCO FORMER USER [facility] Jan 15, 2023 03:00 PM VA-TOBACCO QUIT 15 YRS OR MORE [facility] Aug 18, 2018 11:12 AM QUIT TOBACCO >7 YEARS AGO [facility] April 06, 2018 01:14 PM QUIT TOBACCO >7 YEARS AGO [facility] Oct 20, 2017 12:17 PM QUIT TOBACCO >7 YEARS AGO [facility] Nov 14, 2009 11:45 AM QUIT TOBACCO >7 YEARS AGO [facility] Dec 01, 2008 10:15 AM QUIT TOBACCO >7 YEARS AGO [facility] Feb 08, 2008 10:47 AM QUIT TOBACCO >7 YEARS AGO [facility] Jan 26, 2007 10:41 AM QUIT TOBACCO >7 YEARS AGO [facility] Jul 29, 2006 11:06 AM CURRENT NON-TOBACC O USER-HX OF USE [facility] Jul 31, 2005 10:14 AM CURRENT NON-TOBACC O USER-HX OF USE [facility] Dec 16, 2004 04:12 PM CURRENT NON-TOBACC O USER-HX OF USE Stopped 1982 [facility] Sep 10, 2004 09:51 AM CURRENT NON-TOBACC O USER-HX OF USE [facility] Feb 19, 2004 01:46 PM CURRENT NON-TOBACC O USER-HX OF USE Stopped in 1981 after smoking for 20 years Smoked 1 ppd SOme cigars and pipe [facility] Advance Directives: All historical and current Section Date Range: From patient's date of to the date document was created. This section includes ALL of a patient's completed or amended [facility] Advance and Rescinded Directives. The entries below indicate that a directive exists for the patient, but an actual copy is not included with this document. The data comes from all [place] facilities. Date Advance Directives Provider Source Nov 21, 2011 ADVANCE DIRECTIVE DISCUSSION [facility] Encounter Notes: All associated encounter notes This section contains the clinical notes associated to the Encounter. Date/Time Encounter Note(s) Provider Source Jun 02, 2024 02:57 PM CHIROPRACTIC NOTE: LOCAL TITLE: CHIROPRACTIC FOLLOW UP NOTE PB STANDARD TITLE: CHIROPRACTIC NOTE DATE OF NOTE: JUN 02, 2024@14:57 ENTRY DATE: JUN 02, 2024@14:57:49 AUTHOR: MARY LOU RESTREPO COSIGNER: URGENCY: STATUS: COMPLETED CHIROPRACTIC FOLLOW-UP VISIT Patient's language preference for health information: Kittitian Other Communication Methods Needed: SUBJECTIVE: The [place] is a 73 year old MALE being seen in the Chiropractic clinic for follow-up visit. The states his neck and back are doing well since his last adjustment, with most of his pain due to his right shoulder. Today, the rates his pain level as a 5-6/10, due to the right shoulder. PAST MEDICAL HISTORY: see problem list SOCIO-ECONOMIC HISTORY: Tobacco: No Prior Tobacco Use Status Available Alcohol: ____ ALLERGIES/ADVERSE REACTIONS: Patient has answered NKA OBJECTIVE: CERVICAL SPINE: MOVEMENT/POSTURE: Upon inspection, observation is unremarkable. PALPATION: Tenderness was present at cervical segments C1 and C2. SEGMENTAL DYFUNCTION: Joint dysfunctions present upon evaluation C spine: C1 and C2. RANGE OF MOTION: AROM of the cervical spine was restricted in all planes of motion. The experience pain with the restricted AROM. LUMBAR/THORACIC SPINE: MOVEMENT/POSTURE: The ambulates without issue. SEGMENTAL DYSFUNCTION: Joint dysfunction was noted in the T spine: T4 and T8, L spine: L5, and at the right SI joint. PALPATION: The following vertebral spinous processes were tender to palpation: T4, T8, L5, and the right PSIS. RANGE OF MOTION: AROM of the lumbar spine was slightly restricted and painful in all planes of motion. REVIEW OF DIAGNOSTIC IMAGING: No data available ASSESSMENT: Cervical spine, thoracic spine, lumbar spine, and SI joint dysfunction with associated myofascial pain. PLAN: This is the third follow up treatment for the of a planned six treatments. We will treat The [place] once every four weeks for six treatments. Prognosis: Fair Today's treatment of the consisted of chiropractic spinal adjustment of the cervical spine (supine), thoracic spine (prone), lumbar spine (side posture), and the pelvis (side posture) using diversified technique. The procedure was well tolerated by the . GOALS: The goals of treatment include: 1) The reduction of symptomatology. 2) Instructing the in home exercises to improve cervical flexibility and strength, core strength, and lower extremity and core flexibility. 3) Helping the to understand the benefits of long-term continuation of the home exercise program and to commit to a longterm exercise plan. /maddy/ [facility] Signed: 06/02/2024 15:06 MARY LOU RESTREPO
--- OUTSIDE RECORDS SUMMARY | 2024-06-16 07:32 | XMS_ITS | Encounter Summary ---
Author Name [facility] [facility] [place] [facility] [place] Address [address] [place] [address] Care Team Providers Care Male Infertility Specialist Name Role Phone JUSTIN WEAVER Primary Care Provider Unavailabl e Insurance Providers: [...] Policy Snyder MEDICARE (WNR) MEDICARE (M) PART A Jul 24, 2017 PART A [id number] BERTHA SAMPSON PATIENT MEDICARE (WNR) MEDICARE (M) PART A Jul 24, 2017 PART A [id number] BERTHA SAMPSON CHARD PATIENT MEDICARE (WNR) MEDICARE (M) PART B Jul 24, 2017 PART B [id number] BERTHA SAMPSON PATIENT MEDICARE (WNR) MEDICARE (M) PART B Jul 24, 2017 PART B [id number] [phone] BERTHA SAMPSON PATIENT -FO R-LIFE [facility]ICA RE FOR LIFE WNR Jul 24, 2017 FOR LIFE [id number] [phone] BERTHA SAMPSON PATIENT Selected Encounter This section includes the information on record at [place] for the Encounter. Date/Time Encounter Type Encounter Description Reason Provider Source Jun 16, 2024 12:32 PM HEARING AID REPAIR/MODIFYIN G AUDIOLOGY ICD-10-CM Z46.1 Encounter for fitting and adjustment of hearing aid SERA WARD RA [facility] Encounter Template Text not used by [place] Assessments - Encounter Diagnoses This section includes the primary and secondary diagnoses documented for the Encounter. Date/Time Primary/Secondary Diagnosis Diagnosis Name Provider Source Jun 16, 2024 12:35 PM PRIMARY Encounter for fitting and adjustment of hearing aid SERA WARD RA LESLIE BEJARANO [facility] Jun 16, 2024 12:35 PM SECONDARY Sensorineural hearing loss, bilateral SERA WARD RA HORTENSIAAR CARLEE [facility] Plan of Treatment: Future Appointments (+ 6 months) and Future Tests (+/- 45 days) The Plan of Treatment section includes future care activities for the patient from all [place] treatmentfacilities. This section includes future appointments and future orders which are active, pending or scheduled. Future Appointments This section includes appointments that were scheduled to occur 6 months from the date of the Encounter, up to a maximum of 20 appointments. The data comes from all [place] treatment facilities. Appointment Date/Time Appointment Type Appointme nt Facility Name Jul 07, 2024 01:00 PM [facility]ORY - [facility]INE [facility] Jul 07, 2024 02:00 PM [facility] - MEDICINE [facility] Aug 01, 2024 02:00 PM [facility] [place] [facility] Aug 04, 2024 12:30 PM [facility]ORY - MEDICINE [facility] Aug 04, 2024 12:31 PM [facility]IC[facility] [place] [facility] Aug 04, 2024 01:00 PM [facility] Aug 04, 2024 01:20 PM [facility] Aug 11, 2024 02:00 PM [facility] Aug 25, 2024 01:20 PM [facility] Aug 25, 2024 02:00 PM [facility] Sep 29, 2024 01:40 PM [facility] Sep 29, 2024 02:00 PM [facility] Oct 27, 2024 01:00 PM [facility]BULATORY - MEDICINE [facility] Oct 27, 2024 02:00 PM AMBULATORY - MEDICINE [facility] Nov 10, 2024 03:00 PM AMBULATORY - MEDICINE [facility] Dec 01, 2024 01:30 PM AMBULATORY - MEDICINE [facility] Dec 01, 2024 02:00 PM AMBULATORY - MEDICINE [facility] Dec 07, 2024 12:00 PM AMBULATORY - MEDICINE [facility] Dec 07, 2024 12:01 PM [facility] - [facility] [place] [facility] Dec 13, 2024 03:15 PM [facility] - [facility]ICINE [place] [facility] Advance Directives: All historical and current Section Date Range: From patient's date of to the date document was created. This section includes ALL of a patient's completed or amended [place] Advance and Rescinded Directives. The entries below indicate that a directive exists for the patient, but an actual copy is not included with this document. The data comes from all [place] facilities. Date Advance Directives Provider Source Nov 21, 2011 ADVANCE DIRECTIVE DISCUSSION [facility] Encounter Notes: All associated encounter notes This section contains the clinical notes associated to the Encounter. Date/Time Encounter Note(s) Provider Source Jun 16, 2024 08:10 AM AUDIOLOGY NOTE: LOCAL TITLE: HEARING CLINIC STANDARD TITLE: AUDIOLOGY NOTE DATE OF NOTE: JUN 16, 2024@08:10 ENTRY DATE: JUN 16, 2024@08:10:53 AUTHOR: OTONIEL WARD COSIGNER: URGENCY: STATUS: COMPLETED Diagnosis: Sensorineural hearing loss, Bilateral Treatment: Hearing Aid Follow Up Time spent with [place]: 30 minutes [place] seen for a hearing aid check via Audio Telehealth and verbally consented to the Telehealth modality. Multi-factor personally identifiable information of the was obtained verbally (full name and date of ). accompanied by: Patient site: [facility] ____ HISTORY: [place] was previously seen for the fitting of new hearing aids. Patient returns today for follow up. reports acclimating well to the hearing aids and feels they are beneficial. [place] reports receiving the first shipment of supplies in the mail. He is requesting smaller dome on the left device. Patient reports difficulties with insertion HEARING DEVICES: 05/05/24 PHONAK AUDEO L90-RL NALDO L [id number] 04/30/27 09/27/24 05/05/24 PHONAK AUDEO L90-RL NALDO R [id number] 04/30/27 09/27/24 - S PARKING REGULATION ENFORCEMENT OFFICER 5.0 - SIZE 2 - R: CAP DOME 4.0, L: OPEN DOME 4.0 - SMALL - CERUSTOP - NO RETENTION TAILS Accessories: PHONAK REMOTECONTROL OBJECTIVE/ASSESSMENT: Otoscopy was performed by collaboration of telehealth clinical sleep technician and provider via telehealth technology/video otoscope which revealed: Right ear: unremarkable Left ear: minimal cerumen Visual inspection of both hearing aids revealed no damage/defects. Devices were cleaned and checked including replacement of filters. Installed cap dome in place of small open dome on left device. A listening check performed by TCT revealed proper function. Removed retention tails from hearing aids for ease of insertion. Practiced proper insertion with patient. Patient was re-instructed on hearing aid maintenance and re-educated on ordering more supplies when needed. [employer] Outcome Inventory for Hearing Aids administered and saved in ROES. The was counseled/educated on services provided today and is in agreement with the plan. PLAN: Patient to contact clinic if retention difficulties persist. Custom molds may be necessary. /es/ Jong Negron [facility] Signed: 06/16/2024 12:43 OTONIEL WARD [facility]
--- OUTSIDE RECORDS SUMMARY | 2024-07-07 09:00 | XMS_ITS | Encounter Summary ---
Author Name [facility] [facility] [place] [facility] [place] Address [address] [place] [address] Care Team Providers Care Acid Operator Name Role Phone MEG JUSTIN Primary Care [...] PART A Jul 24, 2017 PART A [id number] [phone] BERTHA SAMPSON PATIENT MEDICARE (WNR) MEDICARE (M) PART A Jul 24, 2017 PART A [id number] [phone] BERTHA SAMPSON CHARD PATIENT MEDICARE (WNR) MEDICARE (M) PART B Jul 24, 2017 PART B [id number] BERTHA SAMPSON CHARD PATIENT MEDICARE (WNR) MEDICARE (M) PART B Jul 24, 2017 PART B [id number] ITALONILSBERTHA LANEYD PATIENT -FO R-LIFE TRICA RE FOR LIFE WNR Jul 24, 2017 FOR LIFE [id number] [phone] ADRIÁNBERTHA MICHELE PATIENT Selected Encounter This section includes the information on record at [place] for the Encounter. Date/Time Encounter Type Encounter Description Reason Provider Source Jul 07, 2024 02:00 PM CHIROPRACT MANJ 3-4 [facility] ICD-10-CM M99.01 Segmental and somatic dysfunction of cervical region MARY LOU RESTREPO Encounter Template Text not used by VA Assessments - Encounter Diagnoses This section includes the primary and secondary diagnoses documented for the Encounter. Date/Time Primary/Secondary Diagnosis Diagnosis Name Provider Source Jul 07, 2024 02:11 PM PRIMARY Segmental and somatic dysfunction of cervical region MARY LOU RESTREPO [facility] Jul 07, 2024 02:11 PM SECONDARY Cervicalgia MARY LOU RESTREPO [facility] Jul 07, 2024 02:11 PM SECONDARY Other intervertebral disc degeneration, lumbosacral region MARY LOU RESTREPO [facility] Jul 07, 2024 02:11 PM SECONDARY Pain in thoracic spine MARY LOU RESTREPO [facility] Jul 07, 2024 02:11 PM SECONDARY Segmental and somatic dysfunction of lumbar region MARY LOU RESTREPO [facility] Jul 07, 2024 02:11 PM SECONDARY Segmental and somatic dysfunction of pelvic region MARY LOU RESTREPO [facility] Jul 07, 2024 02:11 PM SECONDARY Segmental and somatic dysfunction of thoracic region MARY LOU RESTREPO [facility] Plan of Treatment: Future Appointments (+ 6 months) and Future Tests (+/- 45 days) The Plan of Treatment section includes future care activities for the patient from all [place] treatmentfacilities. This section includes future appointments and future orders which are active, pending or scheduled. Future Appointments This section includes appointments that were scheduled to occur 6 months from the date of the Encounter, up to a maximum of 20 appointments. The data comes from all [place] treatment facilities. Appointment Date/Time Appointment Type Appointme nt Facility Name Aug 01, 2024 02:00 PM AMBULATORY - [facility]IC[facility] [facility] Aug 04, 2024 12:30 PM [facility] Aug 04, 2024 12:31 PM [facility] - [facility]IC[facility] [place] [facility] Aug 04, 2024 01:00 PM [facility] Aug 04, 2024 01:20 PM [facility] Aug 11, 2024 02:00 PM [facility] [place] [facility] [facility] Aug 25, 2024 01:20 PM [facility] Aug 25, 2024 02:00 PM [facility] Sep 29, 2024 01:40 PM [facility] Sep 29, 2024 02:00 PM [facility] Oct 27, 2024 01:00 PM [facility] Oct 27, 2024 02:00 PM [facility] Nov 10, 2024 03:00 PM [facility] Dec 01, 2024 01:30 PM [facility] Dec 01, 2024 02:00 PM [facility] Dec 07, 2024 12:00 PM [facility] Dec 07, 2024 12:01 PM [facility] [place] [facility] Dec 13, 2024 03:15 PM [facility] [place] [facility] Dec 15, 2024 01:30 PM [facility] Dec 29, 2024 01:30 PM [facility] Vital Signs: All taken on the encounter date This section contains inpatient and outpatient Vital Signs collected on the date of the Encounter. Date/Time Temperature Pulse Blood Pressure Respiratory Rate SP02 Pain Height Weight Body Mass Index Source Jul 07, 2024 02:00 PM 97.9 67 136/90 [facility] Social History: Smoking Status (Most current) and Tobacco Use (All prior to encounter date) This section includes the most current, and the historical, smoking and tobacco- related health factors from the [place] facility where the Encounter took place. Current Smoking Status This section includes the most current smoking, or tobacco-related health factor, from the [place] facility where the Encounter took place. Date/Time Current Smoking Status Comment Peggy vaughan Jan 19, 2024 03:00 PM [facility] Tobacco Use History This section includes a history of the smoking, or tobacco-related health factors, that were collected on or before the date of the Encounter. The data comes from the [place] facility where the Encounter took place. Date/Time Smoking Status/Tobacco Use Comment [facility] Jan 19, 2024 03:00 PM VA-TOBACCO QUIT 15 YRS OR MORE [facility] Jan 15, 2023 03:00 PM VA-TOBACCO FORMER USER [facility] Jan 15, 2023 03:00 PM VA-TOBACCO QUIT 15 YRS OR MORE [facility] Aug 18, 2018 11:12 AM QUIT TOBACCO >7 YEARS AGO [facility] April 06, 2018 01:14 PM QUIT TOBACCO >7 YEARS AGO [facility] Oct 20, 2017 12:17 PM QUIT TOBACCO >7 YEARS AGO [facility] Nov 14, 2009 11:45 AM QUIT TOBACCO >7 YEARS AGO [facility] Dec 01, 2008 10:15 AM QUIT TOBACCO >7 YEARS AGO [facility] Feb 08, 2008 10:47 AM QUIT TOBACCO >7 YEARS AGO [facility] Jan 26, 2007 10:41 AM QUIT TOBACCO >7 YEARS AGO [facility] Jul 29, 2006 11:06 AM CURRENT NON-TOBACC O USER-HX OF USE [facility] Jul 31, 2005 10:14 AM CURRENT NON-TOBACC O USER-HX OF USE [facility] Dec 16, 2004 04:12 PM CURRENT NON-TOBACC O USER-HX OF USE Stopped 1982 [facility] Sep 10, 2004 09:51 AM CURRENT NON-TOBACC O USER-HX OF USE [facility] Feb 19, 2004 01:46 PM CURRENT NON-TOBACC O USER-HX OF USE Stopped in 1981 after smoking for 20 years Smoked 1 ppd SOme cigars and pipe [facility] Advance Directives: All historical and current Section Date Range: From patient's date of to the date document was created. This section includes ALL of a patient's completed or amended VA Advance and Rescinded Directives. The entries below indicate that a directive exists for the patient, but an actual copy is not included with this document. The data comes from all [place] facilities. Date Advance Directives Provider Source Nov 21, 2011 ADVANCE DIRECTIVE DISCUSSION [facility] Encounter Notes: All associated encounter notes This section contains the clinical notes associated to the Encounter. Date/Time Encounter Note(s) Provider Source Jul 07, 2024 02:02 PM CHIROPRACTIC NOTE: LOCAL TITLE: CHIROPRACTIC FOLLOW UP NOTE PB STANDARD TITLE: CHIROPRACTIC NOTE DATE OF NOTE: JUL 07, 2024@14:02 ENTRY DATE: JUL 07, 2024@14:02:37 AUTHOR: MARY LOU RESTREPO COSIGNER: URGENCY: STATUS: COMPLETED CHIROPRACTIC FOLLOW-UP VISIT Patient's language preference for health information: Israeli Other Communication Methods Needed: SUBJECTIVE: The [place] is a 73 year old MALE being seen in the Chiropractic clinic for follow-up visit. The [place] describes his neck and back as feeling okay with his primary pain in his right shoulder. Today, the rates his [...] associated myofascial pain. PLAN: This is the fourth follow up treatment for the of a planned six treatments. We will treat The once every four weeks for six treatments. [...] exercise program and to commit to a shelter exercise plan. /maddy/ [facility] Signed: 07/07/2024 14:10 [facility] REST[facility]
--- OUTSIDE RECORDS SUMMARY | 2024-08-04 07:31 | XMS_ITS ---
Author Name [facility] [place] [facility] [place] [facility] [place] Address [address] [place] [address] Care Team Providers Care Chaplaincy Name Role Phone WEAVERJUSTIN Primary Care Provider Unavailabl e Insurance Providers: [...] PART A Jul 24, 2017 PART A [id number] BERTHA SAMPSON PATIENT MEDICARE (WNR) MEDICARE (M) PART B Jul 24, 2017 PART B [id number] 15A BERTHA SAMPSOND PATIENT MEDICARE (WNR) MEDICARE (M) PART A Jul 24, 2017 PART A [id number] BERTHA SAMPSON PATIENT MEDICARE (WNR) MEDICARE (M) PART B Jul 24, 2017 PART B [id number] BERTHA SAMPSON PATIENT -FO R-LIFE TRICA RE FOR LIFE WNR Jul 24, 2017 FOR LIFE [id number] [phone] BERTHA SAMPSON PATIENT Selected Encounter This section includes the information on record at [place] for the Encounter. Date/Time Encounter Type Encounter Description Reason Provider Source Aug 04, 2024 12:31 PM HEARING AID FITTING/CHECKIN G AUDIOLOGY ICD-10-CM Z46.1 Encounter for fitting and adjustment of hearing aid SERA WARD RA E Encounter Template Text not used by [place] Assessments - Encounter Diagnoses This section includes the primary and secondary diagnoses documented for the Encounter. Date/Time Primary/Secondary Diagnosis Diagnosis Name Provider Source Aug 04, 2024 12:22 PM PRIMARY Encounter for fitting and adjustment of hearing aid SERA WARD RA [place] Aug 04, 2024 12:22 PM SECONDARY Sensorineural hearing loss, bilateral SERA WARD RA [place] [facility] Plan of Treatment: Future Appointments (+ 6 months) and Future Tests (+/- 45 days) The Plan of Treatment section includes future care activities for the patient from all [place] treatmentfacilities. This section includes future appointments and future orders which are active, pending or scheduled. Future Appointments This section includes appointments that were scheduled to occur 6 months from the date of the Encounter, up to a maximum of 20 appointments. The data comes from all [place] treatment facilities. Appointment Date/Time Appointment Type Appointme nt Facility Name Aug 11, 2024 02:00 PM AMBULATORY - MEDICINE [facility] Aug 25, 2024 01:20 PM AMBULATORY - MEDICINE [facility] Aug 25, 2024 02:00 PM [facility]ATORY [facility]INE [facility] Sep 29, 2024 01:40 PM AMBULATORY - MEDICINE [facility] Sep 29, 2024 02:00 PM AMBULATORY - MEDICINE [facility] Oct 27, 2024 01:00 PM AMBULATORY - MEDICINE [facility] Oct 27, 2024 02:00 PM AMBULATORY - MEDICINE [facility] Nov 10, 2024 03:00 PM AM[facility]ULATORY - MEDICINE [facility] Dec 01, 2024 01:30 PM [facility] [facility] Dec 01, 2024 02:00 PM [facility] - MEDICINE [facility] Dec 07, 2024 12:00 PM AMBULATORY - MEDICINE [facility] Dec 07, 2024 12:01 PM AMBULATORY - [facility]ICINE [place] [facility] Dec 13, 2024 03:15 PM AMBULATORY - MEDICINE [place] Dec 15, 2024 01:30 PM [facility]ORY - MEDICINE [facility] Dec 29, 2024 01:30 PM AM[facility]UL[facility]ORY - MEDICINE [facility] Jan 19, 2025 01:00 PM [facility]ORY - MEDICINE [facility] Jan 19, 2025 02:00 PM AMBULATORY - MEDICINE [facility] Jan 26, 2025 01:30 PM AMBULATORY - MEDICINE [facility] Advance Directives: All historical and current Section Date Range: From patient's date of to the date document was created. This section includes ALL of a patient's completed or amended [place] Advance and Rescinded Directives. The entries below indicate that a directive exists for the patient, but an actual copy is not included with this document. The data comes from all [place] facilities. Date Advance Directives Provider Source Nov 21, 2011 ADVANCE DIRECTIVE DISCUSSION [facility] Encounter Notes: All associated encounter notes This section contains the clinical notes associated to the Encounter. Date/Time Encounter Note(s) Provider Source Aug 04, 2024 07:56 AM AUDIOLOGY NOTE: LOCAL TITLE: HEARING CLINIC PB STANDARD TITLE: AUDIOLOGY NOTE DATE OF NOTE: AUG 04, 2024@07:56 ENTRY DATE: AUG 04, 2024@07:56:12 AUTHOR: OTONIEL WRAD COSIGNER: URGENCY: STATUS: COMPLETED Diagnosis: Sensorineural hearing loss, Bilateral Treatment: Hearing Aid Check Time spent with : 30 minutes seen for a hearing aid check via Audio Telehealth and verbally consented to the Telehealth modality. Multi-factor personally identifiable information of the was obtained verbally (full name and date of ). Majestic accompanied by: Patient site: [facility] ____ HISTORY: Reason for Appointment: Patient is here today reporting intermittent white noise from the right hearing aid. He states that he was unaware devices could be cleaned. HEARING DEVICES: 05/05/24 PHONAK AUDEO L90-RL NALDO L [id number] 04/30/27 09/27/24 05/05/24 PHONAK AUDEO L90-RL NALDO R [id number] 04/30/27 09/27/24 - S FLEECE TIER 5.0 - SIZE 2 - CAP DOME 4.0 - CERUSTOP - NO RETENTION TAILS Accessories: PHONAK REMOTECONTROL OBJECTIVE/ASSESSMENT: Otoscopy was performed by collaboration of telehealth clinical communications engineering technician and provider via telehealth technology/video otoscope which revealed: Right ear: unremarkable Left ear: unremarkable Visual inspection of both hearing aids revealed plugged filters. Both hearing aids were cleaned including replacement of domes/filters. A listening check performed by the TCT confirmed proper function. Patient was re-instructed on hearing aid maintenance and re-educated on ordering more supplies when needed. Patient reported right hearing aid louder than left. Connected hearing aids to software. Datalogging showed about two hours of daily use. Reduced right ear gain from 85% to 80%. Left ear is set to 85% gain. The was counseled/educated on services provided today and is in agreement with the plan. PLAN: Follow up as needed or scheduled. /maddy/ Jong Negron [facility] Signed: 08/04/2024 12:30 OTONIEL WARD [facility]
--- OUTSIDE RECORDS SUMMARY | 2024-08-04 08:20 | XMS_ITS | Encounter Summary ---
Author Name [facility] [place] [facility] [place] [facility] [place] Address [address] [place] [address] Care Team Providers Care Crap Shooter Name Role Phone MEG JUSTIN Primary Care [...] PART A Jul 24, 2017 PART A [id number] BERTHA SAMPSON PATIENT MEDICARE (WNR) MEDICARE (M) PART B Jul 24, 2017 PART B [id number] 15A BERTHA SAMPSON CHARD PATIENT MEDICARE (WNR) MEDICARE (M) PART A Jul 24, 2017 PART A [id number] BERTHA SAMPSON CHARD PATIENT MEDICARE (WNR) MEDICARE (M) PART B Jul 24, 2017 PART B [id number] ITALONILSBERTHA LANEYD PATIENT -FO R-LIFE TRICA RE FOR LIFE WNR Jul 24, 2017 [facility] LIFE [id number] [phone] ADRIÁNBERTHA MICHELE PATIENT Selected Encounter This section includes the information on record at [place] for the Encounter. Date/Time Encounter Type Encounter Description Reason Provider Source Aug 04, 2024 01:20 PM CHIROPRACT MANJ 3-4 [facility] [facility] TECHNICIAN ICD-10-CM M99.01 Segmental and somatic dysfunction of cervical region MARY LOU RESTREPO Encounter Template Text not used by VA Assessments - Encounter Diagnoses This section includes the primary and secondary diagnoses documented for the Encounter. Date/Time Primary/Secondary Diagnosis Diagnosis Name Provider Source Aug 04, 2024 01:34 PM PRIMARY Segmental and somatic dysfunction of cervical region MARY LOU RESTREPO [facility] Aug 04, 2024 01:34 PM SECONDARY Cervicalgia MARY LOU RESTREPO [facility] Aug 04, 2024 01:34 PM SECONDARY Other intervertebral disc degeneration, lumbosacral region MARY LOU RESTREPO [facility] Aug 04, 2024 01:34 PM SECONDARY Pain in thoracic spine [facility] L[facility]RE[facility] Aug 04, 2024 01:34 PM SECONDARY Segmental and somatic dysfunction of lumbar region MARY LOU RESTREPO [facility] Aug 04, 2024 01:34 PM SECONDARY Segmental and somatic dysfunction of pelvic region MARY LOU RESTREPO [facility] Aug 04, 2024 01:34 PM SECONDARY Segmental and somatic dysfunction of thoracic region MARY LOU RESTREPO [facility] Plan of Treatment: Future Appointments (+ 6 months) and Future Tests (+/- 45 days) The Plan of Treatment section includes future care activities for the patient from all [place] treatmentfacilities. This section includes future appointments and future orders which are active, pending or scheduled. Future Appointments This section includes appointments that were scheduled to occur 6 months from the date of the Encounter, up to a maximum of 20 appointments. The data comes from all [place] treatment facilities. Appointment Date/Time Appointment Type Appointme nt Facility Name Aug 11, 2024 02:00 PM [facility] [facility] Aug 25, 2024 01:20 PM [facility] Aug 25, 2024 02:00 PM [facility] Sep 29, 2024 01:40 PM [facility] Sep 29, 2024 02:00 PM [facility] Oct 27, 2024 01:00 PM [facility] Oct 27, 2024 02:00 PM [facility] Nov 10, 2024 03:00 PM [facility] Dec 01, 2024 01:30 PM [facility] Dec 01, 2024 02:00 PM [facility] Dec 07, 2024 12:00 PM [facility] Dec 07, 2024 12:01 PM [facility] [place] [facility] Dec 13, 2024 03:15 PM [facility] [place] [facility] Dec 15, 2024 01:30 PM [facility] Dec 29, 2024 01:30 PM [facility]BULATORY - MEDICINE [facility] Jan 19, 2025 01:00 PM AMBULATORY - MEDICINE [facility] Jan 19, 2025 02:00 PM [facility] Jan 26, 2025 01:30 PM AMBULATORY - MEDICINE [facility] Vital Signs: All taken on the encounter date This section contains inpatient and outpatient Vital Signs collected on the date of the Encounter. Date/Time Temperature Pulse Blood Pressure Respiratory Rate SP02 Pain Height Weight Body Mass Index Source Aug 04, 2024 01:20 PM 98.1 77 161/73 [facility] Social History: Smoking Status (Most current) and Tobacco Use (All prior to encounter date) This section includes the most current, and the historical, smoking and tobacco- related health factors from the [place] facility where the Encounter took place. Current Smoking Status This section includes the most current smoking, or tobacco-related health factor, from the [place] facility where the Encounter took place. Date/Time Current Smoking Status Comment Facil ity Jan 19, 2024 03:00 PM VA-TOBACCO FORMER USER [facility] Tobacco Use History This section includes a history of the smoking, or tobacco-related health factors, that were collected on or before the date of the Encounter. The data comes from the [place] facility where the Encounter took place. Date/Time Smoking Status/Tobacco Use Comment F acility Jan 19, 2024 03:00 PM VA-TOBACCO QUIT 15 YRS OR MORE [facility] Jan 15, 2023 03:00 PM VA-TOBACCO FORMER USER [facility] Jan 15, 2023 03:00 PM VA-TOBACCO QUIT 15 YRS OR MORE [facility] Aug 18, 2018 11:12 AM QUIT TOBACCO >7 YEARS AGO [facility] April 06, 2018 01:14 PM QUIT TOBACCO >7 YEARS AGO [facility] Oct 20, 2017 12:17 PM QUIT TOBACCO >7 YEARS AGO [facility] Nov 14, 2009 11:45 AM QUIT TOBACCO >7 YEARS AGO [facility] Dec 01, 2008 10:15 AM QUIT TOBACCO >7 YEARS AGO [facility] Feb 08, 2008 10:47 AM QUIT TOBACCO >7 YEARS AGO [facility] Jan 26, 2007 10:41 AM QUIT TOBACCO >7 YEARS AGO [facility] Jul 29, 2006 11:06 AM CURRENT NON-TOBACC O USER-HX OF USE [facility] Jul 31, 2005 10:14 AM CURRENT NON-TOBACC O USER-HX OF USE [facility] Dec 16, 2004 04:12 PM CURRENT NON-TOBACC O USER-HX OF USE Stopped 1982 [facility] Sep 10, 2004 09:51 AM CURRENT NON-TOBACC O USER-HX OF USE [facility] Feb 19, 2004 01:46 PM CURRENT NON-TOBACC O USER-HX OF USE Stopped in 1981 after smoking for 20 years Smoked 1 ppd SOme cigars and pipe [facility] Advance Directives: All historical and current Section Date Range: From patient's date of to the date document was created. This section includes ALL of a patient's completed or amended VA Advance and Rescinded Directives. The entries below indicate that a directive exists for the patient, but an actual copy is not included with this document. The data comes from all [place] facilities. Date Advance Directives Provider Source Nov 21, 2011 ADVANCE DIRECTIVE DISCUSSION [facility] Encounter Notes: All associated encounter notes This section contains the clinical notes associated to the Encounter. Date/Time Encounter Note(s) Provider Source Aug 04, 2024 01:26 PM CHIROPRACTIC NOTE: LOCAL TITLE: CHIROPRACTIC FOLLOW UP NOTE PB STANDARD TITLE: CHIROPRACTIC NOTE DATE OF NOTE: AUG 04, 2024@13:26 ENTRY DATE: AUG 04, 2024@13:26:20 AUTHOR: MARY LOU RESTREPO COSIGNER: URGENCY: STATUS: COMPLETED CHIROPRACTIC FOLLOW-UP VISIT Patient's language preference for health information: Kazakh Other Communication Methods Needed: SUBJECTIVE: The [place] is a 73 year old MALE being seen in the Chiropractic clinic for follow-up visit. The states his neck is stiff, the right shoulder is somewhat better, and his back is doing well. Today, the rates his pain level as a 4-5/10, due to the right shoulder. PAST MEDICAL [...] associated myofascial pain. PLAN: This is the fifth follow up treatment for the of a planned six treatments. We will treat The [place] once every four weeks for six treatments. [...] exercise program and to commit to a [facility] exercise plan. /maddy/ [facility] Signed: 08/04/2024 13:34 [facility]
--- OUTSIDE RECORDS SUMMARY | 2024-08-25 06:55 | XMS_ITS | Encounter Summary ---
Author Name [facility] [facility] [place] [facility] [place] Address [address] [place] [address] Care Team Providers Care Edgerman Name Role Phone MEG JUSTIN Primary Care [...] PART A Jul 24, 2017 PART A [id number] BERTHA SAMPSON CHARD PATIENT MEDICARE (WNR) MEDICARE (M) PART A Jul 24, 2017 PART A [id number] BERTHA SAMPSON CHARD PATIENT MEDICARE (WNR) MEDICARE (M) PART B Jul 24, 2017 PART B [id number] BERTHA SAMPSON CHARD PATIENT MEDICARE (WNR) MEDICARE (M) PART B Jul 24, 2017 PART B [id number] BERTHA SAMPSOND PATIENT -FO R-LIFE [facility] FOR LIFE WNR Jul 24, 2017 FOR LIFE [id number] [phone] ITALONILSBERTHA MICHELE PATIENT Selected Encounter This section includes the information on record at [place] for the Encounter. Date/Time Encounter Type Encounter Description Reason Pro vider Source Aug 25, 2024 11:55 AM Outpatient Encounter ADMIN PAT ACTIVTIES (MASNONCT) IHE Encounter Template Text not used by [place] Plan of Treatment: Future Appointments (+ 6 months) and Future Tests (+/- 45 days) The Plan of Treatment section includes future care activities for the patient from all [place] treatmentfacilities. This section includes future appointments and future orders which are active, pending or scheduled. Future Appointments This section includes appointments that were scheduled to occur 6 months from the date of the Encounter, up to a maximum of 20 appointments. The data comes from all [place] treatment facilities. Appointment Date/Time Appointment Type Appointme nt Facility Name Sep 29, 2024 01:40 PM [facility] Sep 29, 2024 02:00 PM [facility] Oct 27, 2024 01:00 PM [facility] Oct 27, 2024 02:00 PM [facility] Nov 10, 2024 03:00 PM [facility] Dec 01, 2024 01:30 PM [facility] Dec 01, 2024 02:00 PM [facility] Dec 07, 2024 12:00 PM [facility] Dec 07, 2024 12:01 PM [facility] [facility] Dec 13, 2024 03:15 PM [facility] [place] [facility] Dec 15, 2024 01:30 PM [facility] Dec 29, 2024 01:30 PM [facility] Jan 19, 2025 01:00 PM [facility] Jan 19, 2025 02:00 PM [facility] Jan 26, 2025 01:30 PM [facility] Feb 16, 2025 02:00 PM [facility] Vital Signs: All taken on the encounter date This section contains inpatient and outpatient Vital Signs collected on the date of the Encounter. Date/Time Temperature Pulse Blood Pressure Respiratory Rate SP02 Pain Height Weight Body Mass Index Source Aug 25, 2024 01:20 PM 97.8 75 145/70 [facility] Social History: Smoking Status (Most current) and Tobacco Use (All prior to encounter date) This section includes the most current, and the historical, smoking and tobacco- related health factors from the [place] facility where the Encounter took place. Current Smoking Status This section includes the most current smoking, or tobacco-related health factor, from the [place] facility where the Encounter took place. Date/Time Current Smoking Status Comment Facil ity Jan 19, 2024 03:00 PM VA-TOBACCO FORMER USER [facility] Tobacco Use History This section includes a history of the smoking, or tobacco-related health factors, that were collected on or before the date of the Encounter. The data comes from the [place] facility where the Encounter took place. Date/Time Smoking Status/Tobacco Use Comment F acility Jan 19, 2024 03:00 PM VA-TOBACCO QUIT 15 YRS OR MORE [facility] Jan 15, 2023 03:00 PM VA-TOBACCO FORMER USER [facility] Jan 15, 2023 03:00 PM VA-TOBACCO QUIT 15 YRS OR MORE [facility] Aug 18, 2018 11:12 AM QUIT TOBACCO >7 YEARS AGO [facility] April 06, 2018 01:14 PM QUIT TOBACCO >7 YEARS AGO [facility] Oct 20, 2017 12:17 PM QUIT TOBACCO >7 YEARS AGO [facility] Nov 14, 2009 11:45 AM QUIT TOBACCO >7 YEARS AGO [facility] Dec 01, 2008 10:15 AM QUIT TOBACCO >7 YEARS AGO [facility] Feb 08, 2008 10:47 AM QUIT TOBACCO >7 YEARS AGO [facility] Jan 26, 2007 10:41 AM QUIT TOBACCO >7 YEARS AGO [facility] Jul 29, 2006 11:06 AM CURRENT NON-TOBACC O USER-HX OF USE [facility] Jul 31, 2005 10:14 AM CURRENT NON-TOBACC O USER-HX OF USE [facility] Dec 16, 2004 04:12 PM CURRENT NON-TOBACC O USER-HX OF USE Stopped 1982 [facility] Sep 10, 2004 09:51 AM CURRENT NON-TOBACC O USER-HX OF USE [facility] Feb 19, 2004 01:46 PM CURRENT NON-TOBACC O USER-HX OF USE Stopped in 1981 after smoking for 20 years Smoked 1 ppd SOme cigars and pipe [facility] Advance Directives: All historical and current Section Date Range: From patient's date of to the date document was created. This section includes ALL of a patient's completed or amended VA Advance and Rescinded Directives. The entries below indicate that a directive exists for the patient, but an actual copy is not included with this document. The data comes from all [place] facilities. Date Advance Directives Provider Source Nov 21, 2011 ADVANCE DIRECTIVE DISCUSSION ANDREASWALT [facility] Encounter Notes: All associated encounter notes This section contains the clinical notes associated to the Encounter. Date/Time Encounter Note(s) Provider Source Aug 25, 2024 11:55 AM GENERAL MEDICINE N OTE: LOCAL TITLE: General Note PB STANDARD TITLE: GENERAL MEDICINE NOTE DATE OF NOTE: AUG 25, 2024@11:55 ENTRY DATE: AUG 25, 2024@11:55:14 AUTHOR: LONA OSBORNE EXP COSIGNER: URGENCY: STATUS: COMPLETED [place] came into clinic requesting assistance with pair of phone, downloading kirstin and pairing remote to hearing aids. All taken care of and educated on the use of each /maddy/ LONA OSBORNE Telehealth Clinical Flat Examiner Signed: 08/25/2024 11:56 LONA OSBORNE [facility]
--- OUTSIDE RECORDS SUMMARY | 2024-09-29 08:40 | XMS_ITS | Encounter Summary ---
Author Name [facility] [place] [facility] [place] Address [address] [place] [address] Care Team Providers Care Lead Press Operator Name Role Phone MEG JUSTIN Primary [...] PART A Jul 24, 2017 PART A [id number] [phone] BERTHA SAMPSON PATIENT MEDICARE (WNR) MEDICARE (M) PART A Jul 24, 2017 PART A [id number] [phone] BERTHA SAMPSON CHARD PATIENT MEDICARE (WNR) MEDICARE (M) PART B Jul 24, 2017 PART B [id number] BERTHA SAMPSON CHARD PATIENT MEDICARE (WNR) MEDICARE (M) PART B Jul 24, 2017 PART B [id number] ITALONILSBERTHA LANEYD PATIENT -FO R-LIFE [facility] RE FOR LIFE WNR Jul 24, 2017 FOR LIFE [id number] [phone] BERTHA SAMPSON PATIENT Selected Encounter This section includes the information on [place] at [place] for the Encounter. 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 Date/Time Primary/Secondary Diagnosis Diagnosis Name Provider Source Sep 29, 2024 03:17 PM PRIMARY Segmental and somatic dysfunction of cervical region MARY LOU RESTREPO [facility] Sep 29, 2024 03:17 PM SECONDARY Cervicalgia LAUROMARY LOU Ventura [facility] Sep 29, 2024 03:17 PM SECONDARY Pain in thoracic spine LAUROMARY LOU E [facility] Sep 29, 2024 03:17 PM SECONDARY Segmental and somatic dysfunction of lumbar region LAUROMARY LOU Ventura [facility] Sep 29, 2024 03:17 PM SECONDARY Segmental and somatic dysfunction of pelvic region LAUROMARY LOU E [facility] Sep 29, 2024 03:17 PM SECONDARY Segmental and somatic dysfunction of thoracic region LAUROMARY LOU [facility] Sep 29, 2024 03:17 PM SECONDARY Spondylosis w/o myelopathy or radiculopathy, lumbar region LAUROMARY LOU E [facility] Plan of Treatment: Future Appointments (+ 6 months) and Future Tests (+/- 45 days) The Plan of Treatment section includes future care activities for the patient from all [place] treatmentfacilities. This section includes future appointments and future orders which are active, pending or scheduled. Future Appointments This section includes appointments that were scheduled to occur 6 months from the date of the Encounter, up to a maximum of 20 appointments. The data comes from all [place] treatment facilities. Appointment Date/Time Appointment Type Appointme nt Facility Name Oct 27, 2024 01:00 PM [facility] [place] [facility] Oct 27, 2024 02:00 PM [facility]ORY [facility] MEDICINE [facility] Nov 10, 2024 03:00 PM [facility] Dec 01, 2024 01:30 PM [facility] MEDICINE [facility] Dec 01, 2024 02:00 PM [facility] Dec 07, 2024 12:00 PM [facility] Dec 07, 2024 12:01 PM [facility] [place] [facility] Dec 13, 2024 03:15 PM [facility] [place] [facility] Dec 15, 2024 01:30 PM [facility] Dec 29, 2024 01:30 PM [facility] Jan 19, 2025 01:00 PM [facility] Jan 19, 2025 02:00 PM [facility] Jan 26, 2025 01:30 PM [facility] Feb 16, 2025 02:00 PM [facility] Mar 09, 2025 01:30 PM [facility] Mar 09, 2025 03:30 PM [facility] Vital Signs: All taken on the encounter date This section contains inpatient and outpatient Vital Signs collected on the date of the Encounter. Date/Time Temperature Pulse Blood Pressure Respiratory Rate SP02 Pain Height Weight Body Mass Index Source Sep 29, 2024 01:40 PM 98 78 124/72 [facility] Social History: Smoking Status (Most current) and Tobacco Use (All prior to encounter date) This section includes the most current, and the historical, smoking and tobacco- related health factors from the [place] facility where the Encounter took place. Current Smoking Status This section includes the most current smoking, or tobacco-related health factor, from the [place] facility where the Encounter took place. Date/Time Current Smoking Status Comment Facil ity Jan 19, 2024 03:00 PM VA-TOBACCO FORMER USER [facility] Tobacco Use History This section includes a history of the smoking, or tobacco-related health factors, that were collected on or before the date of the Encounter. The data comes from the [place] facility where the Encounter took place. Date/Time Smoking Status/Tobacco Use Comment F acility Jan 19, 2024 03:00 PM VA-TOBACCO QUIT 15 YRS OR MORE [facility] Jan 15, 2023 03:00 PM VA-TOBACCO FORMER USER [facility] Jan 15, 2023 03:00 PM VA-TOBACCO QUIT 15 YRS OR MORE [facility] Aug 18, 2018 11:12 AM QUIT TOBACCO >7 YEARS AGO [facility] April 06, 2018 01:14 PM QUIT TOBACCO >7 YEARS AGO [facility] Oct 20, 2017 12:17 PM QUIT TOBACCO >7 YEARS AGO [facility] Nov 14, 2009 11:45 AM QUIT TOBACCO >7 YEARS AGO [facility] Dec 01, 2008 10:15 AM QUIT TOBACCO >7 YEARS AGO [facility] Feb 08, 2008 10:47 AM QUIT TOBACCO >7 YEARS AGO [facility] Jan 26, 2007 10:41 AM QUIT TOBACCO >7 YEARS AGO [facility] Jul 29, 2006 11:06 AM CURRENT NON-TOBACC O USER-HX OF USE [facility] Jul 31, 2005 10:14 AM CURRENT NON-TOBACC O USER-HX OF USE [facility] Dec 16, 2004 04:12 PM CURRENT NON-TOBACC O USER-HX OF USE Stopped 1982 [facility] Sep 10, 2004 09:51 AM CURRENT NON-TOBACC O USER-HX OF USE [facility] Feb 19, 2004 01:46 PM CURRENT NON-TOBACC O USER-HX OF USE Stopped in 1981 after smoking for 20 years Smoked 1 ppd SOme cigars and pipe [facility] Advance Directives: All historical and current Section Date Range: From patient's date of to the date document was created. This section includes ALL of a patient's completed or amended VA Advance and Rescinded Directives. The entries below indicate that a directive exists for the patient, but an actual copy is not included with this document. The data comes from all [place] facilities. Date Advance Directives Provider Source Nov 21, 2011 ADVANCE DIRECTIVE DISCUSSION WALT OWENS [facility] Encounter Notes: All associated encounter notes This section contains the clinical notes associated to the Encounter. Date/Time Encounter Note(s) Provider Source Sep 29, 2024 03:07 PM CHIROPRACTIC NOTE: LOCAL TITLE: CHIROPRACTIC FOLLOW UP NOTE PB STANDARD TITLE: CHIROPRACTIC NOTE DATE OF NOTE: SEP 29, 2024@15:07 ENTRY DATE: SEP 29, 2024@15:07:53 AUTHOR: MARY LOU RESTREPO COSIGNER: URGENCY: STATUS: COMPLETED CHIROPRACTIC FOLLOW-UP VISIT Patient's language preference for health information: Turkish Other Communication Methods Needed: SUBJECTIVE: The is a 74 year old MALE being seen in the Chiropractic clinic for follow-up visit. The states his lower back and right SI region is very painful since the past weekend. He suspects he lifted something too heavy or digging. With the lower back pain, the struggled to walk. Today, the rates his pain level as a 5/10. PAST MEDICAL HISTORY: see problem list SOCIO-ECONOMIC [...] restricted in all planes of motion. The [place] experience pain with the restricted AROM. LUMBAR/THORACIC [...] associated myofascial pain. PLAN: This is the first follow up treatment for the of a planned six treatments. We will treat The [place] once every four weeks for six treatments. [...] exercise program and to commit to a terminologist exercise plan. /maddy/ [facility] Signed: 09/29/2024 15:16 [facility]
--- OUTSIDE RECORDS SUMMARY | 2024-12-01 09:00 | XMS_ITS | Encounter Summary ---
Author Name [facility] [place] [facility] [place] Address [address] [place] [address] Care Team Providers Care Him Specialists Name Role Phone MEG JUSTIN Primary Care [...] PART A Jul 24, 2017 PART A [id number] BERTHA SAMPSON PATIENT MEDICARE (WNR) MEDICARE (M) PART B Jul 24, 2017 PART B [id number] [phone] BERTHA SAMPSON CHARD PATIENT MEDICARE (WNR) MEDICARE (M) PART A Jul 24, 2017 PART A [id number] BERTHA SAMPSON CHARD PATIENT MEDICARE (WNR) MEDICARE (M) PART B Jul 24, 2017 PART B [id number] [phone] ITALONILSBERTHA LANEYD PATIENT -FO R-LIFE TRICA RE FOR LIFE WNR Jul 24, 2017 FOR LIFE [id number] [phone] BERTHA SAMPSON PATIENT Selected Encounter This section includes the information on record at [place] for the Encounter. 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 Date/Time Primary/Secondary Diagnosis Diagnosis Name Provider Source Dec 01, 2024 02:04 PM PRIMARY Segmental and somatic dysfunction of cervical region MARY LOU RESTREPO [facility] Dec 01, 2024 02:04 PM SECONDARY Cervicalgia MARY LOU RESTREPO [facility] Dec 01, 2024 02:04 PM SECONDARY Oth intvrt disc degen, lumbosacr w discog bck & lw extrm pn MARY LOU RESTREPO [facility] Dec 01, 2024 02:04 PM SECONDARY Pain in thoracic spine [facility] L[facility]RE[facility] Dec 01, 2024 02:04 PM SECONDARY Segmental and somatic dysfunction of lumbar region MARY LOU RESTREPO [facility] Dec 01, 2024 02:04 PM SECONDARY Segmental and somatic dysfunction of pelvic region MARY LOU RESTREPO [facility] Dec 01, 2024 02:04 PM SECONDARY Segmental and somatic dysfunction of thoracic region MARY LOU RESTREPO [facility] Plan of Treatment: Future Appointments (+ 6 months) and Future Tests (+/- 45 days) The Plan of Treatment section includes future care activities for the patient from all [place] treatmentfacilities. This section includes future appointments and future orders which are active, pending or scheduled. Future Appointments This section includes appointments that were scheduled to occur 6 months from the date of the Encounter, up to a maximum of 20 appointments. The data comes from all [place] treatment facilities. Appointment Date/Time Appointment Type Appointme nt Facility Name Dec 07, 2024 12:00 PM [facility] [place] [facility] Dec 07, 2024 12:01 PM [facility] - [facility] [place] [facility] Dec 13, 2024 03:15 PM [facility] [place] [facility] Dec 15, 2024 01:30 PM [facility] [place] [facility]IC[place] [facility] Dec 29, 2024 01:30 PM [facility] [place] [facility] Jan 19, 2025 01:00 PM [facility] Jan 19, 2025 02:00 PM [facility] Jan 26, 2025 01:30 PM [facility] Feb 16, 2025 02:00 PM [facility] Mar 09, 2025 01:30 PM [facility] Mar 09, 2025 03:30 PM [facility] April 06, 2025 01:00 PM [facility] April 06, 2025 01:30 PM AMBULATORY - MEDICINE [facility] Apr 24, 2025 03:10 PM AMBULATORY - NONE [facility] May 02, 2025 01:45 PM [facility] [place] [facility] May 02, 2025 02:45 PM AMBULATORY - MEDICINE [place] Vital Signs: All taken on the encounter date This section contains inpatient and outpatient Vital Signs collected on the date of the Encounter. Date/Time Temperature Pulse Blood Pressure Respiratory Rate SP02 Pain Height Weight Body Mass Index Source Dec 01, 2024 02:00 PM 98.2 80 121/62 [facility] Social History: Smoking Status (Most current) and Tobacco Use (All prior to encounter date) This section includes the most current, and the historical, smoking and tobacco- related health factors from the [place] facility where the Encounter took place. Current Smoking Status This section includes the most current smoking, or tobacco-related health factor, from the [place] facility where the Encounter took place. Date/Time Current Smoking Status Comment Facil ity Jan 19, 2024 03:00 PM VA-TOBACCO FORMER USER [facility] Tobacco Use History This section includes a history of the smoking, or tobacco-related health factors, that were collected on or before the date of the Encounter. The data comes from the [place] facility where the Encounter took place. Date/Time Smoking Status/Tobacco Use Comment F acility Jan 19, 2024 03:00 PM VA-TOBACCO QUIT 15 YRS OR MORE [facility] Jan 15, 2023 03:00 PM VA-TOBACCO FORMER USER [facility] Jan 15, 2023 03:00 PM VA-TOBACCO QUIT 15 YRS OR MORE [facility] Aug 18, 2018 11:12 AM QUIT TOBACCO >7 YEARS AGO [facility] April 06, 2018 01:14 PM QUIT TOBACCO >7 YEARS AGO [facility] Oct 20, 2017 12:17 PM QUIT TOBACCO >7 YEARS AGO [facility] Nov 14, 2009 11:45 AM QUIT TOBACCO >7 YEARS AGO [facility] Dec 01, 2008 10:15 AM QUIT TOBACCO >7 YEARS AGO [facility] Feb 08, 2008 10:47 AM QUIT TOBACCO >7 YEARS AGO [facility] Jan 26, 2007 10:41 AM QUIT TOBACCO >7 YEARS AGO [facility] Jul 29, 2006 11:06 AM CURRENT NON-TOBACC O USER-HX OF USE [facility] Jul 31, 2005 10:14 AM CURRENT NON-TOBACC O USER-HX OF USE [facility] Dec 16, 2004 04:12 PM CURRENT NON-TOBACC O USER-HX OF USE Stopped 1982 [facility] Sep 10, 2004 09:51 AM CURRENT NON-TOBACC O USER-HX OF USE [facility] Feb 19, 2004 01:46 PM CURRENT NON-TOBACC O USER-HX OF USE Stopped in 1981 after smoking for 20 years Smoked 1 ppd SOme cigars and pipe [facility] Advance Directives: All historical and current Section Date Range: From patient's date of to the date document was created. This section includes ALL of a patient's completed or amended VA Advance and Rescinded Directives. The entries below indicate that a directive exists for the patient, but an actual copy is not included with this document. The data comes from all [place] facilities. Date Advance Directives Provider Source Nov 21, 2011 ADVANCE DIRECTIVE DISCUSSION WALT OWENS [facility] Encounter Notes: All associated encounter notes This section contains the clinical notes associated to the Encounter. Date/Time Encounter Note(s) Provider Source Dec 01, 2024 01:56 PM CHIROPRACTIC NOTE: LOCAL TITLE: CHIROPRACTIC FOLLOW UP NOTE PB STANDARD TITLE: CHIROPRACTIC NOTE DATE OF NOTE: DEC 01, 2024@13:56 ENTRY DATE: DEC 01, 2024@13:56:18 AUTHOR: MARY LOU RESTREPO COSIGNER: URGENCY: STATUS: COMPLETED CHIROPRACTIC FOLLOW-UP VISIT Patient's language preference for health information: Thai Other Communication Methods Needed: SUBJECTIVE: The is a 74 year old MALE being seen in the Chiropractic clinic for follow-up visit. The describes his neck and back as doing well, similar to past appointments. He states he tries to be careful lifting two 5 gallon buckets of water to give to his chickens during the colder weather. Today, the rates his pain level as [...] restricted in all planes of motion. The [place] experience pain with the restricted AROM. LUMBAR/THORACIC [...] associated myofascial pain. PLAN: This is the second follow up treatment for the of a [...] strength, and lower extremity and core flexibility. Additional lasting improvement beyond what was seen after the initial and/or continued trial is not expected. has reported meaningful improvement of reasonable duration but has plateaued and reached MMI from complex care nurse. [place] had experience degradation in functional gains after some period when complex care nurse was withdrawn. All other indicated medical, psychological, behavioral, and social interventions have been tried or considered. Appropriate active care and self-management strategies are part of the overall treatment plan and patients are compliant with recommendations. /maddy/ [facility] Signed: 12/01/2024 14:04 MARY LOU RESTREPO
--- OUTSIDE RECORDS SUMMARY | 2024-12-07 07:01 | XMS_ITS | Encounter Summary ---
Author Name [facility] [place] [facility] [place] Organization [facility] [place] [facility] [place] Address [address] [place] [address] Care Team Providers Care Education Reviewer Name Role Phone JUSTIN WEAVER Primary Care [...] PART A Jul 24, 2017 PART A [id number] BERTHA SAMPSON PATIENT MEDICARE (WNR) MEDICARE (M) PART B Jul 24, 2017 PART B [id number] [phone] BERTHA SAMPSON PATIENT MEDICARE (WNR) MEDICARE (M) PART A Jul 24, 2017 PART A [id number] BERTHA SAMPSON PATIENT MEDICARE (WNR) MEDICARE (M) PART B Jul 24, 2017 PART B [id number] BERTHA SAMPSON PATIENT -FO R-LIFE [facility] RE FOR LIFE WNR Jul 24, 2017 FOR LIFE [id number] [phone] BERTHA SAMPSON PATIENT Selected Encounter This section includes the information on record at [place] for the Encounter. Date/Time Encounter Type Encounter Description Reason Pro vider Source Dec 07, 2024 12:01 PM Outpatient Encounter AUDIOLOGY IHE Encounter Template Text not used by [place] Plan of Treatment: Future Appointments (+ 6 months) and Future Tests (+/- 45 days) The Plan of Treatment section includes future care activities for the patient from all [place] treatmentfacilities. This section includes future appointments and future orders which are active, pending or scheduled. Future Appointments This section includes appointments that were scheduled to occur 6 months from the date of the Encounter, up to a maximum of 20 appointments. The data comes from all [facility]. Appointment Date/Time Appointment Type Appointme nt Facility Name Dec 13, 2024 03:15 PM [facility]BUL[facility] [place] [facility] Dec 15, 2024 01:30 PM AMBULATORY - MEDICINE [facility] Dec 29, 2024 01:30 PM AMBULATORY - MEDICINE [facility] Jan 19, 2025 01:00 PM AMBULATORY - MEDICINE [facility] Jan 19, 2025 02:00 PM AMBULATORY - MEDICINE [facility] Jan 26, 2025 01:30 PM AMBULATORY - MEDICINE [facility] Feb 16, 2025 02:00 PM AMBULATORY - MEDICINE [facility] Mar 09, 2025 01:30 PM AMBULATORY - MEDICINE [facility] Mar 09, 2025 03:30 PM AMBULATORY - MEDICINE [facility] April 06, 2025 01:00 PM AMBULATORY - MEDICINE [facility] April 06, 2025 01:30 PM AMBULATORY - MEDICINE [facility] Apr 24, 2025 03:10 PM AMBULATORY - NONE [place] [facility] May 02, 2025 01:45 PM AMBULATORY - MEDICINE [facility] May 02, 2025 02:45 PM [facility] - [facility]IC[facility] [place] [facility] Active, Pending, and Scheduled Orders This section includes a listing of several types of active, pending, and scheduled orders, including clinic medications orders, diagnostic test orders, procedure orders and consult orders; where the start date of the order is 45 days before the date of the Encounter or 45 days after the date of theEncounter. The data comes from all [facility] treatment facilities. Test Date/Time Test Type Test Details Facility Name Jan 18, 2025 09:08 AM Consult [id number] Cons Rectifying Operator's Choice LESLIE DSOU[facility] Advance Directives: All historical and current Section Date Range: From patient's date of to the date document was created. This section includes ALL of a patient's completed or amended [place] Advance and Rescinded Directives. The entries below indicate that a directive exists for the patient, but an actual copy is not included with this document. The data comes from all [place] facilities. Date Advance Directives Provider Source Nov 21, 2011 ADVANCE DIRECTIVE DISCUSSION [facility] OWENS [facility]
--- OUTSIDE RECORDS SUMMARY | 2025-01-19 08:00 | XMS_ITS | Encounter Summary ---
Author Name [facility] [place] Organization [facility] [place] Address [address] [place] [address] Care Team Providers Care Jewel Inserter Name Role Phone EMG JUSTIN Primary Care Provider Unavailabl e Insurance [...] PART B Jul 24, 2017 PART B [id number] [phone] BERTHA SAMPSON PATIENT MEDICARE (WNR) MEDICARE (M) PART A Jul 24, 2017 PART A [id number] BERTHA SAMPSON CHARD PATIENT MEDICARE (WNR) MEDICARE (M) PART B Jul 24, 2017 PART B [id number] BERTHA SAMPSON CHARD PATIENT MEDICARE (WNR) MEDICARE (M) PART A Jul 24, 2017 PART A [id number] ITALOBERTHA WRAYD PATIENT -FO R-LIFE TRICA RE FOR LIFE WNR Jul 24, 2017 FOR LIFE [id number] [phone] BERTHA SAMPSON PATIENT Selected Encounter This section includes the information on record at [place] for the Encounter. 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 Date/Time Primary/Secondary Diagnosis Diagnosis Name Provider Source Jan 19, 2025 01:52 PM PRIMARY Cervicalgia MARY LOU RESTREPO [facility] Jan 19, 2025 01:52 PM SECONDARY Oth intvrt disc degen, lumbosacr w discog bck & lw extrm pn LAUROMARY LOU Ventura [facility] Jan 19, 2025 01:52 PM SECONDARY Pain in thoracic spine LAUROMARY LOU Audrey [facility] Jan 19, 2025 01:52 PM SECONDARY Segmental and somatic dysfunction of cervical region LAUROMARY LOU Ventura [facility] Jan 19, 2025 01:52 PM SECONDARY Segmental and somatic dysfunction of lumbar region LAUROMARY LOU Ventura [facility] Jan 19, 2025 01:52 PM SECONDARY Segmental and somatic dysfunction of pelvic region MARY LOU RESTREPO [facility] Jan 19, 2025 01:52 PM SECONDARY Segmental and somatic dysfunction of thoracic region LAUROMARY LOU Ventura [facility] Plan of Treatment: Future Appointments (+ 6 months) and Future Tests (+/- 45 days) The Plan of Treatment section includes future care activities for the patient from all [place] treatmentfacilities. This section includes future appointments and future orders which are active, pending or scheduled. Future Appointments This section includes appointments that were scheduled to occur 6 months from the date of the Encounter, up to a maximum of 20 appointments. The data comes from all [place] treatment facilities. Appointment Date/Time Appointment Type Appointme nt Facility Name Jan 26, 2025 01:30 PM [facility] Feb 16, 2025 02:00 PM [facility] [place] [facility] Mar 09, 2025 01:30 PM [facility] [facility] Mar 09, 2025 03:30 PM [facility] April 06, 2025 01:00 PM [facility] April 06, 2025 01:30 PM [facility] Apr 24, 2025 03:10 PM [facility] - NONE [place] [facility] May 02, 2025 01:45 PM AMBULATORY - MEDICINE [facility] May 02, 2025 02:45 PM [facility]IC[facility] [place] [facility] Jun 08, 2025 01:00 PM AMBULATORY - MEDICINE [facility] Jun 08, 2025 02:40 PM AMBULATORY - MEDICINE [facility] Jun 26, 2025 03:30 PM AMBULATORY - NONE [place] [facility] Jul 13, 2025 02:40 PM AMBULATORY - MEDICINE [facility] Active, Pending, and Scheduled Orders This section includes a listing of several types of active, pending, and scheduled orders, including clinic medications orders, diagnostic test orders, procedure orders and consult orders; where the start date of the order is 45 days before the date of the Encounter or 45 days after the date of theEncounter. The data comes from all [place] treatment facilities. Test Date/Time Test Type Test Details Facility Name Jan 18, 2025 09:08 AM Consult Order [facility] [id number] Cons Wildfire Prevention Specialist's Choice [place] [facility] Mar 03, 2025 12:47 PM Consult Order [facility]-RHEUMATOLOGY [id number] Cons Wildfire Prevention Specialist's Choice [facility] Lab Results: +/- 30 days of the encounter This section includes the Chemistry and Hematology Lab Results on record with [place] for the patient. Radiology Reports and Pathology Reports are provided separately, in subsequent sections. Lab Results This section contains the Chemistry/Hematology Results that were resulted 30 days before or 30 daysafter the date of the Encounter. Date/Time Source Result Type Result - Unit Interpretation Reference Range Specimen Type Comment Feb 16, 2025 03:05 PM [facility] FOLATE (PB) SERUM Specimen Type: SERUM No comment entered. Ordering Provider: LEONARD FIGUEROA Report Released Date/Time: Feb 16, 2025 02:13 PM Reporting Lab: [place] [facility] [address] [place] [address] Performing Lab: [place] [facility] [address] [place] [address] FOLATE (PB) 14.9 ng/mL 7-20 Feb 16, 2025 03:05 PM [facility] HGA1C BLOOD Specimen Type: BLOOD No comment entered. Ordering Provider: LEONARD FIGUEROA Report Released Date/Time: Feb 16, 2025 02:13 PM Reporting Lab: [place] [facility] [address] [place] [address] Performing Lab: [place] [facility] [address] [place] [address] HGA1C 5.5 4.0-6.0 Feb 16, 2025 03:05 PM [facility] B12 SERUM Specimen Type: SERUM No comment entered. Ordering Provider: LEONARD FIGUEROA Report Released Date/Time: Feb 16, 2025 02:13 PM Reporting Lab: [place] [facility] [address] [place] [address] Performing Lab: [place] [facility] [address] [place] [address] B12 635 pg/mL 213-816 Feb 16, 2025 03:05 PM [facility] VITAMIN D, 25-HYDROXY SERUM Specimen Type: SE RUM No comment entered. Ordering Provider: LEONARD FIGUEROA Report Released Date/Time: Feb 16, 2025 02:13 PM Reporting Lab: [place] [facility] [address] [place] [address] Performing Lab: [place] [facility] [address] [place] [address] VITAMIN D, 25-HYDROXY 61.1 ng/mL 30-96 Feb 16, 2025 03:05 PM [facility] CHOLESTEROL PANEL (PB) PLASMA Specimen Type: P LASMA No comment entered. Ordering Provider: LEONARD FIGUEROA Report Released Date/Time: Feb 16, 2025 02:13 PM Reporting Lab: [place] [facility] [address] [place] [address] Performing Lab: [place] [facility] [address] [place] [address] CHOLESTEROL 148 mg/dL 0-200 TRIGLYCERIDE 40 mg/dL 0-150 CALCULATED LDL 87.8 mg/dL HDL(New) 52.2 mg/dL H >40 HDL % OF TOTAL CHOLESTEROL (PB) 35.3 >25 Feb 16, 2025 03:05 PM [facility] TSH (MA-PB) SERUM Specimen Typ e: SERUM No comment entered. Ordering Provider: LEONARD FIGUEROA Report Released Date/Time: Feb 16, 2025 02:13 PM Reporting Lab: [place] [facility] [address] [place] [address] Performing Lab: [place] [facility] [address] [place] [id number] TSH 4.322 u[IU]/mL 0.47-5 Feb 16, 2025 03:05 PM [facility] COMPREHENSIVE METABOLIC PANEL PLASMA Specimen Type: PLASMA No comment entered. Ordering Provider: LEONARD FIGUEROA Report Released Date/Time: Feb 16, 2025 02:13 PM Reporting Lab: [place] [facility] [address] [place] [facility] Performing Lab: [place] [facility] [address] [place] [address] CREATININE 0.88 mg/dL 0.7-1.3 UREA NITROGEN 14 mg/dL 9-25 GLUCOSE 91 mg/dL 72-99 SODIUM 143 meq/L 136-145 POTASSIUM 4.1 meq/L 3.5-5 CHLORIDE 108 meq/L H 98-107 CARBON DIOXIDE 27 meq/L 22-31 CALCIUM 9.4 mg/dL 8.4-10.4 PROTEIN 6.6 g/dL 6-8.6 ALBUMIN 4.4 g/dL 3.4-5 TOTAL BILIRUBIN 0.4 mg/dL 0.2-1.2 ALKALINE PHOSPHATASE 50 U/L 40-150 AST/SGOT 36 U/L H 5-34 ALT/SGPT 25 U/L 8-40 EGFR (CKD-EPI 2020) 91 Feb 16, 2025 03:05 PM [facility] CBC BLOOD Specimen Type: BLOOD No comment entered. Ordering Provider: LEONARD FIGUEROA Report Released Date/Time: Feb 16, 2025 02:13 PM Reporting Lab: [place] [facility] [address] [place] [facility] Performing Lab: [place] [facility] [address] [place] [address] WBC 6.0 10*3/uL 3.6-11.2 RBC 4.45 10*6/uL 4.10-5.70 HGB 13.7 g/dL 13.1-16.8 HCT 41.9 38.2-48.4 MCV 94.2 fL 80.0-100.0 MCH 30.8 pg 27.0-34.0 MCHC 32.7 g/dL L 33.0-36.0 PLT 256 10*3/uL 150-400 MPV 10.6 fL 7.5-11.2 RDW 12.4 11.8-15.1 LYMPHOCYTES, AUTO % 25.4 MONOCYTES, AUTO % 9.0 NEUTROPHILS, AUTO % 62.9 EOSINOPHILS, AUTO % 1.8 BASOPHILS, AUTO % 0.7 LYMPHOCYTES, ABSOLUTE 1.53 10*3/uL 0.77- 4.50 MONOCYTES, ABSOLUTE 0.54 10*3/uL 0.19-0. 8 NEUTROPHILS, ABSOLUTE 3.80 10*3/uL 2.10- 8.00 EOSINOPHILS, ABSOLUTE 0.11 10*3/uL 0.00- 0.60 BASOPHILS, ABSOLUTE 0.04 10*3/uL 0.00-0. 20 IMMATURE GRANS, AUTO % 0.2 IMMATURE GRANS, AUTO ABS 0.01 10*3/uL 0. 00-0.05 Vital Signs: All taken on the encounter date This section contains inpatient and outpatient Vital Signs collected on the date of the Encounter. Date/Time Temperature Pulse Blood Pressure Respiratory Rate SP02 Pain Height Weight Body Mass Index Source Jan 19, 2025 01:00 PM 98.6 96 151/79 [facility] Social History: Smoking Status (Most current) and Tobacco Use (All prior to encounter date) This section includes the most current, and the historical, smoking and tobacco- related health factors from the [place] facility where the Encounter took place. Current Smoking Status This section includes the most current smoking, or tobacco-related health factor, from the [place] facility where the Encounter took place. Date/Time Current Smoking Status Marybeth vaughan Jan 19, 2024 03:00 PM VA-TOBACCO FORMER USER [facility] Tobacco Use History This section includes a history of the smoking, or tobacco-related health factors, that were collected on or before the date of the Encounter. The data comes from the [place] facility where the Encounter took place. Date/Time Smoking Status/Tobacco Use Comment F acility Jan 19, 2024 03:00 PM VA-TOBACCO QUIT 15 YRS OR MORE [facility] Jan 15, 2023 03:00 PM VA-TOBACCO FORMER USER [facility] Jan 15, 2023 03:00 PM VA-TOBACCO QUIT 15 YRS OR MORE [facility] Aug 18, 2018 11:12 AM QUIT TOBACCO >7 YEARS AGO [facility] April 06, 2018 01:14 PM QUIT TOBACCO >7 YEARS AGO [facility] Oct 20, 2017 12:17 PM QUIT TOBACCO >7 YEARS AGO [facility] Nov 14, 2009 11:45 AM QUIT TOBACCO >7 YEARS AGO [facility] Dec 01, 2008 10:15 AM QUIT TOBACCO >7 YEARS AGO [facility] Feb 08, 2008 10:47 AM QUIT TOBACCO >7 YEARS AGO [facility] Jan 26, 2007 10:41 AM QUIT TOBACCO >7 YEARS AGO [facility] Jul 29, 2006 11:06 AM CURRENT NON-TOBACC O USER-HX OF USE [facility] Jul 31, 2005 10:14 AM CURRENT NON-TOBACC O USER-HX OF USE [facility] Dec 16, 2004 04:12 PM CURRENT NON-TOBACC O USER-HX OF USE Stopped 1982 [facility] Sep 10, 2004 09:51 AM CURRENT NON-TOBACC O USER-HX OF USE [facility] Feb 19, 2004 01:46 PM CURRENT NON-TOBACC O USER-HX OF USE Stopped in 1981 after smoking for 20 years Smoked 1 ppd SOme cigars and pipe [facility] Advance Directives: All historical and current Section Date Range: From patient's date of to the date document was created. This section includes ALL of a patient's completed or amended VA Advance and Rescinded Directives. The entries below indicate that a directive exists for the patient, but an actual copy is not included with this document. The data comes from all [place] facilities. Date Advance Directives Provider Source Nov 21, 2011 ADVANCE DIRECTIVE DISCUSSION WALT OWENS [facility] Encounter Notes: All associated encounter notes This section contains the clinical notes associated to the Encounter. Date/Time Encounter Note(s) Provider Source Jan 19, 2025 01:43 PM CHIROPRACTIC NOTE: LOCAL TITLE: CHIROPRACTIC FOLLOW UP NOTE PB STANDARD TITLE: CHIROPRACTIC NOTE DATE OF NOTE: JAN 19, 2025@13:43 ENTRY DATE: JAN 19, 2025@13:43:55 AUTHOR: MARY LOU RESTREPO COSIGNER: URGENCY: STATUS: COMPLETED CHIROPRACTIC FOLLOW-UP VISIT Patient's language preference for health information: Hebrew Other Communication Methods Needed: SUBJECTIVE: The is a 74 year old MALE being seen in the Chiropractic clinic for follow-up visit. The reports slight neck and back tension with pain into the right shoulder. Today, the rates his pain level as a 4/10. PAST MEDICAL HISTORY: see problem list SOCIO-ECONOMIC [...] restricted in all planes of motion. The [place] experience pain with the restricted AROM. LUMBAR/THORACIC SPINE: MOVEMENT/POSTURE: The [place] ambulates without issue. SEGMENTAL DYSFUNCTION: Joint dysfunction [...] planned six treatments. We will treat The [place] once every four weeks for six treatments. [...] but has plateaued and reached MMI from healthcare receptionist. had experience degradation in functional gains after some period when healthcare receptionist was withdrawn. All other indicated medical, psychological, behavioral, and social interventions have been tried or considered. Appropriate active care and self-management strategies are part of the overall treatment plan and patients are compliant with recommendations. /maddy/ [facility] Signed: 01/19/2025 13:51 MARY LOU RESTREPO
--- OUTSIDE RECORDS SUMMARY | 2025-02-16 09:00 | XMS_ITS | Encounter Summary ---
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 URGENCY: STATUS: COMPLETED Established Patient BENJAMIN SAMPSON IS A 74 YEAR OLD MALE BEING SEEN IN CLINIC FEB 16, 2025. = = REASON FOR VISIT: Annual visit, Lab draw. 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 Left hand tremors x 1 year Are you receiving care any where other than the [facility]? No HEALTH AND SURGICAL HISTORY: No new surgeries Does patient report using home oxygen? No CURRENT ACTIVE MEDICATIONS FOR REVIEW: Allergies/ADRs (Tool #5) FACILITY ALLERGY/ADR -------- No Remote Allergy/ADR Data available for this patient [facility] No Known Allergies Med. Reconciliation (Tool #1) INCLUDED IN THIS LIST: Alphabetical list of active outpatient prescriptions dispensed from this [place] (local) and dispensed from another VA or [facility]D facility (remote) as well as inpatient orders (local pending and active), local clinic medications, locally documented non-VA medications, and local prescriptions that have or been discontinued in the past 90 days. Non-VA Meds Last Documented On: Jan 19, 2024 NOTE The display of VA prescriptions dispensed from another VA or DoD facility (remote) is limited to active outpatient prescription entries matched to National Drug File at the originating site and may not include some items such as investigational drugs, compounds, etc. NOT INCLUDED IN THIS LIST: Medications self-entered by the patient into personal health records (i.e. Pulse) are NOT included in this list. Non-VA medications documented outside this [place], remote inpatient orders (regardless of status) and remote clinic medications are NOT included in this list. The patient and provider must always discuss medications the patient is taking, regardless of where the medication was dispensed or obtained. Non-VA ASPIRIN 81MG EC TAB TAKE ONE TABLET BY MOUTH ONCE A DAY Patient wants to buy from Non-VA pharmacy Non-VA CHOLECALCIF 50MCG (D3-2,000UNIT) TAB TAKE ONE TABLET BY MOUTH ONCE A DAY Patient wants to buy from Non-VA pharmacy. Non-VA CLOTRIMAZOLE 1% TOP CREAM APPLY LIGHTLY TO AFFECTED AREA(S) TWICE A DAY Patient wants to buy from Non-VA pharmacy. Non-VA CYANOCOBALAMIN 1000MCG TAB TAKE ONE TABLET BY MOUTH ONCE A DAY VA RX: Patient wants to buy from Non-VA pharmacy Non-VA FISH OIL 1000MG (500MG DHA/EPA) CAP TAKE 1 CAPSULE BY MOUTH TWICE A DAY VA RX: Patient wants to buy from Non-VA pharmacy Non-VA ISOSORBIDE MONONITRATE 30MG SA TAB TAKE ONE TABLET BY MOUTH ONCE A DAY Patient wants to buy from Non-VA pharmacy Non-VA NIFEDIPINE (EQV-CC) 30MG SA TAB TAKE ONE TABLET BY MOUTH ONCE A DAY Patient wants to buy from Non-VA pharmacy Medication prescribed by Non-VA provider Non-VA NITROGLYCERIN 0.4MG SL TAB DISSOLVE ONE TABLET UNDER THE TONGUE ONE-TIME NEEDED Patient wants to buy from Non-VA pharmacy. OUTPT NUTRITION SUPL ENSURE PLUS/NITESH LIQUID (Status = ) TAKE 1 CANFUL BY MOUTH ONCE A DAY FOR NUTRITION SUPPLEMENTATION Rx# [id number] Last Released: 12/19/24 Qty/Days Supply: Rx Expiration Date: 01/05/25 Refills Remainin Indication: FOR NUTRITION SUPPLEMENTATION Non-VA SIMVASTATIN 40MG TAB TAKE ONE-HALF TABLET BY MOUTH EVERY EVENING Medication prescribed by Non-VA provider SUPPLIES OUTPT DRESS,[employer] ADV [id number] C#[id number] (Status = Active) USE/APPLY DRESSING(S) TO AFFECTED AREA(S) EVERY THREE (3) DAYS APPLY TO TOES Rx# [id number] Last Released: 02/24/24 Qty/Days Supply: 04/21 Rx Expiration Date: 02/22/25 Refills Remainin PHARMACY TERMS AND POSSIBLE PATIENT ACTIONS INPT = [place] inpatient order IV = [place] intravenous medication OUTPT = [place] outpatient prescription PHARMACY POSSIBLE PATIENT TERMS EXPLANATION ACTIONS -------- ---- ACTIVE A prescription that can be If you have refills, filled at the local [place] pharmacy. you may request a refill of this prescription from your [place] pharmacy. CLINIC A medication you received during If you have questions a visit to a [place] clinic or about this medication emergency department. contact your [place] healthcare team. DISCONTINUED A prescription your provider has Contact your VA stopped. It is no longer healthcare team if you available to be sent to you or need more of this picked up at the VA pharmacy medication. window. A prescription which is too old Contact your VA to fill. This does not refer to healthcare team if you the expiration date of the need more of this medication in the container. medication. NON-VA A medication that came from If this medication someplace other than a VA information is pharmacy. This may be a incorrect or out of prescription from either the VA date, please tell your or non VA providers that was VA healthcare team. filled outside the VA. Or, it may be an [id number] (OTC), herbal, dietary supplements or sample medication. ON HOLD An active prescription that will Contact your VA not be filled until pharmacy pharmacy when you need resolves the issue. more of this medication. PARKED An active prescription that will Contact your VA not be filled until the patient pharmacy when you need requests it. this medication. PENDING This prescription order has been If you have been sent to the pharmacy for review instructed to start and is not ready yet. this medication now, contact your VA pharmacy. SUSPENDED An active prescription that is Contact your VA not scheduled to be filled yet. pharmacy if you need You should receive it before this medication now. you run out. Medication list reviewed with Patient Patient/Caregiver reports taking medications as ordered. IS PATIENT TAKING ANY OVER THE COUNTER MEDICATIONS, SUCH VITAMINS OR HERBAL SUPPLEMENTS, INCLUDING ANY MEDICATIONS PRESCRIBED BY ANOTHER PHYSICIAN? Yes, List: Mutiple supplements Does patient have any new allergies to report since last visit? VITALS: TEMPERATURE: 98.6 F [37.0 C] (01/19/2025 13:00) BP: 151/79 (01/19/2025 13:00) RESP: 16 (03/17/2024 12:27) PULSE: 96 (01/19/2025 13:00) HT: 66.5 in [168.9 cm] (10/18/2012 10:37) WT: 129.2 lb [58.60 kg] (03/17/2024 12:27) BMI: 20.6 PAIN ASSESSMENT: (Most Recent Pain Score in Vitals Package: 3 (01/19/2024 15:02) ) The patient indicated that they and their close contacts have not traveled outside of the [place] in the past 21 days. The patient reports the following symptoms: No symptoms present The patient is not immunocompromised. The patient does not report having a history of Multi Drug Resistant Organism (MDRO) within the last five years. The patient does not report having been exposed to measles, chickenpox, or zoster in last 30 days. STRESS: Thank you for your service. Now let us serve you. At the [facility], we strive to provide you with exceptional health care that improves your health and well-being. Are you feeling sad, empty, or depressed? No Do you need to talk about things in your life that worry you or cause you stress? No Do you need to talk about personal problems, family problems, alcohol use, drug use, or mental or emotional illness? No SUICIDE SCREENING: The patient was asked, Over the past two weeks, how often have you been bothered by thoughts that you would be better off or of hurting yourself in some way? Not At All SPIRITUAL ASSESSMENT: Are there baptist practices or spiritual concerns you want the airconditioning engineer, your physician, and other health care team members to immediately know about? No Patient advised to call the clinic for any concerns, questions, or symptoms. Patient and/or caregiver verbalized understanding of plan of care. Suicide Screen - V: C-SSRS Screening [place] Suicide Severity Rating Scale (C-SSRS) screener 1. Over the past month, have you wished you were or wished you could go to sleep and not wake up? No 2. Over the past month, have you had any actual thoughts of killing yourself? No 3. Over the past month, have you been thinking about how you might do this? Response not required due to responses to other questions. 4. Over the past month, have you had these thoughts and had some intention of acting on them? Response not required due to responses to other questions. 5. Over the past month, have you started to work out or worked out the details of how to kill yourself? Response not required due to responses to other questions. 6. If yes, at any time in the past month did you intend to carry out this plan? Response not required due to responses to other questions. 7. In your lifetime, have you ever done anything, started to do anything, or prepared to do anything to end your life (for example, collected pills, obtained a gun, gave away valuables, went to the roof but didn't jump)? No 8. If YES, was this within the past 3 months? Response not required due to responses to other questions. Sexual Orientation - CP,L,N,P,PH,PS,S,U: The patient thinks of their sexual orientation as: Straight or Heterosexual RHS Screen - VS: RHS Screen Session Format: Face to Face Environmental Check Upon inquiry, the individual reports that the environment is safe to proceed. Informed Consent to Screen and Document The individual consents to proceed with screening. The individual consents to documentation of responses. PRIMARY SCREEN: In the past 12 months, how often did a current or former intimate partner (e.g., boyfriend, girlfriend, , , sexual partner): 1. Scream or curse at you Never 2. Insult or talk down to you Never 3. Threaten you with harm Never 4. Physically hurt you Never 5. Force or pressure you to have sexual contact against your will, or when you were unable to say no Never The HITS tool (items 1-4 above) is [place] copyright protected by Foster Galeas MD, and the user has full rights to use it throughout the [place] system. PRIMARY SCREEN RESULT: The Primary Screen is NEGATIVE. The individual answered never to all forms of IPV above (i.e., answered never to all 5 items) The individual accepts education and/or resources: Yes - Offered verbal universal education about IPV EDUCATION: The individual indicated readiness to learn. Education offered during this session as noted above. The individual indicated understanding by asking relevant questions and making appropriate comments. No barriers to learning were observed or identified. COVID-19 Immunization - L,N,P,PH,U: Refused Moderna Monovalent COVID-19 vaccine Immunization: COVID-19 (MODERNA), MRNA, LNP-S, PF, 50 MCG/0.5 ML (AGES 12+ YEARS) Refusal Reason: PATIENT DECISION Patient refuses all immunization(s) in the COVID-19 group Date Documented: 02/16/25 14:24 Alcohol Use Screen (AUDIT-C) - V: Alcohol Screen: SCREEN FOR ALCOHOL (AUDIT-C) An alcohol screening test (AUDIT-C) was negative (score=0). 1. How often did you have a drink containing alcohol in the past year? Consider a drink to be a 12 ounce can or bottle of regular beer, 8 ounces of malt liquor, a 5 ounce glass of table wine, or a 1.5 ounce shot of liquor (like scotch, gin, or vodka). Never 2. How many drinks containing alcohol did you have on a typical day when you were drinking in the past year? Response not required due to responses to other questions. 3. How often did you have six or more drinks on one occasion in the past year? Response not required due to responses to other questions. Tobacco Use Screening - AT,DE,L,M,N,P,PH,PS,RT,S,U: The patient is a former cigarette smoker. The patient has never used other types of tobacco. Depression Screening - V: Perform PHQ-2 A PHQ-2 screen was performed. The score was 0 which is a negative screen for depression. Over the past two weeks, how often have you been bothered by the following problems? 1. Little interest or pleasure in doing things Not at all 2. Feeling down, depressed, or hopeless Not at all Homelessness/Food Insecurity Screen - DI,L,N,P,PH,PS,S,U: In the past 2 months, have you been living in stable housing that you own, rent, or stay in as part of a household? Yes - Living in stable housing. Are you worried or concerned that in the next 2 months you may NOT have stable housing that you own, rent, or stay in as part of a household? No - Not worried about housing near future The reports the following: Within the past 12 months, you worried whether your food would run out before you got money to buy more. Never true Within the past 12 months, the food you bought just didn't last and you didn't have money to get more. Never true Homelessness/Food Insecurity Screen - DI,L,N,P,PH,PS,S,U: The reports the following: Within the past 12 months, you worried whether your food would run out before you got money to buy more. Never true Within the past 12 months, the food you bought just didn't last and you didn't have money to get more. Never true Weight Control/Nutrition Counseling: * The patient received the following counseling at this encounter: Patient was encouraged to restrict fat, especially saturated fats, in a normal diet. Benefit of a diet high in fiber was discussed. Patient was advised to include 5 or more servings of fruit and vegetables and six or more servings of grains as a well balanced diet. Patient/Nurse Interview: * * Patient stated that adequate information was received regarding the condition and/or treatment. Advanced Directive Screen/Tobacco Cloth Reclaimer: ADVANCE DIRECTIVE SCREENING: I asked if the patient has an advance directive, and determined that: Patient has an Advance Directive. Patient does not wish to make any changes to the Advance Directive at this time. ADVANCE DIRECTIVE NOTIFICATION I did not provide the patient with written notification about advance directives because declined Level of understanding: Good Pain Assessment: - PAIN ASSESSMENT: .. This patient's last pain assessment score was: 3 (01/19/2024 15:02). A detailed pain assessment showed the following: Pain characteristics (per patient's own words) Constant, Aching Location of current pain Shoulder Onset/Duration of the current pain. Constant or variable? 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 Narr. 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 Narr. - Ocular Hypertension,Right Eye Action: No Referral Ordered: Eye exam completed elsewhere by an Paint Mixer Machine or Television Technician Exam Information: Date: November 08, 2024 Findings/Comment no retinopathy Location: [facility] Per [facility] Directive 1605.06, wristband documentation: Patient wristband was removed and destroyed by (staff name) Harry Bacon and placed in the designated Look.ioed-Qoniac bin. /es/ Harry Bacon [facility] Signed: 02/16/2025 14:43 HARRY BACON [facility]
--- OUTSIDE RECORDS SUMMARY | 2025-02-16 11:13 | XMS_ITS | Encounter Summary ---
Author Name [facility] [place] [facility] [place] Address [address] [place] [address] Care Team Providers Care Chip Drier Name Role Phone MEG JUSTIN Primary Care [...] PART A Jul 24, 2017 PART A [id number] BERTHA SAMPSOND PATIENT MEDICARE (WNR) MEDICARE (M) PART B Jul 24, 2017 PART B [id number] [phone] BERTHA SAMPSON CHARD PATIENT MEDICARE (WNR) MEDICARE (M) PART A Jul 24, 2017 PART A [id number] BERTHA SAMPSON CHARD PATIENT MEDICARE (WNR) MEDICARE (M) PART B Jul 24, 2017 PART B [id number] BERTHA SAMPSOND PATIENT -FO R-LIFE [facility] FOR LIFE WNR Jul 24, 2017 FOR LIFE [id number] [phone] ITALONILSBERTHA MICHELE PATIENT Selected Encounter This section includes the information on record at [place] for the Encounter. Date/Time Encounter Type Encounter Description Reason Pro vider Source Feb 16, 2025 04:13 PM Outpatient Encounter ADMIN PAT ACTIVTIES (MASNONCT) [facility] Encounter Template Text not used by [place] Plan of Treatment: Future Appointments (+ 6 months) and Future Tests (+/- 45 days) The Plan of Treatment section includes future care activities for the patient from all [place] treatmentfacilities. This section includes future appointments and future orders which are active, pending or scheduled. Future Appointments This section includes appointments that were scheduled to occur 6 months from the date of the Encounter, up to a maximum of 20 appointments. The data comes from all [facility]. Appointment Date/Time Appointment Type Appointme nt Facility Name Mar 09, 2025 01:30 PM AMBULATORY - MEDICINE [facility] Mar 09, 2025 03:30 PM AMBULATORY - MEDICINE [facility] April 06, 2025 01:00 PM AMBULATORY - MEDICINE [facility] April 06, 2025 01:30 PM AMBULATORY - MEDICINE [facility] Apr 24, 2025 03:10 PM AMBULATORY - NONE [place] [facility] May 02, 2025 01:45 PM AMBULATORY - MEDICINE [facility] May 02, 2025 02:45 PM AMBULATORY - MEDICINE [place] [facility] Jun 08, 2025 01:00 PM AMBULATORY - MEDICINE [facility] Jun 08, 2025 02:40 PM AMBULATORY - MEDICINE [facility] Jun 26, 2025 03:30 PM AMBULATORY - NONE [place] [facility] Jul 13, 2025 02:40 PM AMBULATORY - MEDICINE [facility] Jul 31, 2025 01:15 PM AMBULATORY - MEDICINE [place] [facility] Aug 10, 2025 02:00 PM AMBULATORY - MEDICINE [facility] Active, Pending, and Scheduled Orders This section includes a listing of several types of active, pending, and scheduled orders, including clinic medications orders, diagnostic test orders, procedure orders and consult orders; where the start date of the order is 45 days before the date of the Encounter or 45 days after the date of theEncounter. The data comes from all [facility]. Test Date/Time Test Type Test Details Facility Name Jan 18, 2025 09:08 AM [id number] Cons Reports Analysis Manager's Choice [place] [facility] Mar 03, 2025 12:47 PM Consult Order [facility]-RHEUMATOLOGY [id number] Cons Reports Analysis Manager's Choice [place] [facility] Lab Results: +/- 30 days of the encounter This section includes the Chemistry and Hematology Lab Results on record with [place] for the patient. Radiology Reports and Pathology Reports are provided separately, in subsequent sections. Lab Results This section contains the Chemistry/Hematology Results that were resulted 30 days before or 30 daysafter the date of the Encounter. Date/Time Source Result Type Result - Unit Interpretation Reference Range Specimen Type Comment Feb 16, 2025 03:05 PM [facility] [place] [facility] B12 SERUM Specimen Type: SERUM No comment entered. Ordering Provider: LEONARD FIGUEROA Report Released Date/Time: Feb 16, 2025 02:13 PM Reporting Lab: [place] [facility] [address] [place] [address] Performing Lab: [place] [facility] [address] [place] [address] B12 635 pg/mL 213-816 Feb 16, 2025 03:05 PM [facility] FOLATE (PB) SERUM Specimen Typ e: SERUM No comment entered. Ordering Provider: LEONARD FIGUEROA Report Released Date/Time: Feb 16, 2025 02:13 PM Reporting Lab: [place] [facility] [address] [place] [address] Performing Lab: [place] [facility] [address] [place] [address] FOLATE (PB) 14.9 ng/mL 7-20 Feb 16, 2025 03:05 PM [facility] HGA1C BLOOD Specimen Type: BLOOD No comment entered. Ordering Provider: LEONARD FIGUEROA Report Released Date/Time: Feb 16, 2025 02:13 PM Reporting Lab: [place] [facility] [address] [place] [address] Performing Lab: [place] [facility] [address] [place] [address] HGA1C 5.5 4.0-6.0 Feb 16, 2025 03:05 PM [facility] VITAMIN D, 25-HYDROXY SERUM Specimen Type: SE RUM No comment entered. Ordering Provider: LEONARD FIGUEROA Report Released Date/Time: Feb 16, 2025 02:13 PM Reporting Lab: [place] [facility] [address] [place] [address] Performing Lab: [place] [facility] [address] [place] [address] VITAMIN D, 25-HYDROXY 61.1 ng/mL 30-96 Feb 16, 2025 03:05 PM [facility] TSH (MA-PB) SERUM Specimen Typ e: SERUM No comment entered. Ordering Provider: LEONARD FIGUEROA Report Released Date/Time: Feb 16, 2025 02:13 PM Reporting Lab: [place] [facility] [address] [place] [address] Performing Lab: [place] [facility] [address] [place] [address] TSH 4.322 u[IU]/mL 0.47-5 Feb 16, 2025 03:05 PM [facility] CHOLESTEROL PANEL (PB) PLASMA Specimen Type: P LASMA No comment entered. Ordering Provider: LEONARD FIGUEROA Report Released Date/Time: Feb 16, 2025 02:13 PM Reporting Lab: [place] [facility] [address] [place] [address] Performing Lab: [place] [facility] [address] [place] [address] CHOLESTEROL 148 mg/dL 0-200 TRIGLYCERIDE 40 mg/dL 0-150 CALCULATED LDL 87.8 mg/dL HDL(New) 52.2 mg/dL H >40 HDL % OF TOTAL CHOLESTEROL (PB) 35.3 >25 Feb 16, 2025 03:05 PM [facility] COMPREHENSIVE METABOLIC PANEL PLASMA Specimen Type: PLASMA No comment entered. Ordering Provider: LEONARD FIGUEROA Report Released Date/Time: Feb 16, 2025 02:13 PM Reporting Lab: [place] [facility] [address] [place] [address] Performing Lab: [place] [facility] [address] [place] [address] CREATININE 0.88 mg/dL 0.7-1.3 UREA NITROGEN 14 [...] 2020) 91 Feb 16, 2025 03:05 PM [facility] BLOOD Specimen Type: BLOOD No comment entered. Ordering Provider: LEONARD FIGUEROA Report Released Date/Time: Feb 16, 2025 02:13 PM Reporting Lab: [place] [facility] [address] [place] [facility] [address] Performing Lab: [place] [facility] [address] [facility] [address] WBC 6.0 10*3/uL 3.6-11.2 RBC 4.45 10*6/uL [...] PM 97.8 72 123/78 18 97 7 [facility] Social History: Smoking Status (Most current) and Tobacco Use (All prior to encounter date) This section includes the most current, and the historical, smoking and tobacco- related health factors from the [place] facility where the Encounter took place. Current Smoking Status This section includes the most current smoking, or tobacco-related health factor, from the [place] facility where the Encounter took place. Date/Time Current Smoking Status Comment Facil ity Feb 16, 2025 02:00 PM VA-TOBACCO USE FORMER CIGARETTES [facility] Tobacco Use History This section includes a history of the smoking, or tobacco-related health factors, that were collected on or before the date of the Encounter. The data comes from the [place] facility where the Encounter took place. Date/Time Smoking Status/Tobacco Use Comment F acility Feb 16, 2025 02:00 PM VA-TOBACCO USE FOR CHRISTINE CIGARETTES [facility] Jan 19, 2024 03:00 PM VA-TOBACCO FORMER USER [facility] Jan 19, 2024 03:00 PM VA-TOBACCO QUIT 15 YRS OR MORE [facility] Jan 15, 2023 03:00 PM VA-TOBACCO FORMER USER [facility] Jan 15, 2023 03:00 PM VA-TOBACCO QUIT 15 YRS OR MORE [facility] Aug 18, 2018 11:12 AM QUIT TOBACCO >7 YEARS AGO [facility] April 06, 2018 01:14 PM QUIT TOBACCO >7 YEARS AGO [facility] Oct 20, 2017 12:17 PM QUIT TOBACCO >7 YEARS AGO [facility] Nov 14, 2009 11:45 AM QUIT TOBACCO >7 YEARS AGO [place] [facility] Dec 01, 2008 10:15 AM QUIT TOBACCO >7 YEARS AGO [facility] Feb 08, 2008 10:47 AM QUIT TOBACCO >7 YEARS AGO [facility] Jan 26, 2007 10:41 AM QUIT TOBACCO >7 YEARS AGO [facility] Jul 29, 2006 11:06 AM CURRENT NON-TOBACC O USER-HX OF USE [facility] Jul 31, 2005 10:14 AM CURRENT NON-TOBACC O USER-HX OF USE [facility] Dec 16, 2004 04:12 PM CURRENT NON-TOBACC O USER-HX OF USE Stopped 1982 [facility] Sep 10, 2004 09:51 AM CURRENT NON-TOBACC O USER-HX OF USE [facility] Feb 19, 2004 01:46 PM CURRENT NON-TOBACC O USER-HX OF USE Stopped in 1981 after smoking for 20 years Smoked 1 ppd SOme cigars and pipe [facility] Advance Directives: All historical and current Section Date Range: From patient's date of to the date document was created. This section includes ALL of a patient's completed or amended [place] Advance and Rescinded Directives. The entries below indicate that a directive exists for the patient, but an actual copy is not included with this document. The data comes from all [place] facilities. Date Advance Directives Provider Source Nov 21, 2011 ADVANCE DIRECTIVE DISCUSSION [facility] Radiology Reports: +/- 30 days of the [...] the Encounter. The data comes from all [place] treatment facilities. Date/Time Radiology Report Provider Source Mar 09, 2025 01:02 PM CHEST X-RAY, 2 VIE WS: LEXI SAMPSON [id number] -[id number] M Exm Date: MAR 09, 2025@13:02 Req Phys: LEONARD FIGUEROA Loc: PB-SARAH PACT ESPINOZA VAMP THROATER (Req'g Lo Img Loc: PB-XRAY [place] Service: [place] [address] (Case [id number] COMPLETE) CHEST X-RAY, 2 VIEWS (RAD Detailed) CPT:30255 Reason for Study: Fever and congestion and cough Clinical History: Report Status: Verified Date Reported: MAR 09, 2025 Date Verified: MAR 09, 2025 Shoemaker Apprentice E-Sig: Report: PA and lateral views of the chest reveal degenerative skeletal changes, atherosclerotic calcification and moderate bilateral pulmonary hyperaeration. There is irregular density compatible with scant infiltrate in the medial left lower lobe. There is no effusion. Heart size is normal. Impression: Small LLL infiltrate Primary Interpreting Staff: EMMA HUMPHREY, RADIOLOGIST (Shoemaker Apprentice, no e-sig) /EMMA Bosch [facility] [place] [facility] Encounter Notes: All associated encounter notes This section contains the clinical notes associated to the Encounter. Date/Time Encounter Note(s) Provider Source Feb 16, 2025 04:13 PM GENERAL MEDICINE N OTE: LOCAL TITLE: General Note PB STANDARD TITLE: GENERAL MEDICINE NOTE DATE OF NOTE: FEB 16, 2025@16:13 ENTRY DATE: FEB 16, 2025@16:13:33 AUTHOR: SANTIAGO JEFFERS EXP COSIGNER: URGENCY: STATUS: COMPLETED General Note PB Has ADDENDA came in needing a battery for his hearing aid remote. also needed to be shown how to change filters. Please order a battery for the remote, said we had taken all of his supplies and the battery must have been in the bags with the other supplies. /BUTCH Sepulveda [facility] Signed: 02/16/2025 16:16 Receipt Acknowledged By: 02/17/2025 10:37 /maddy/ Jong Negron [facility] 02/17/2025 ADDENDUM STATUS: COMPLETED Ordered [id number] battery, cerustops, and cap domes to [place] home address. /Jong Montgomeryhing [facility] Signed: 02/17/2025 10:39 SANTIAGO JEFFERS [facility]
--- OUTSIDE RECORDS SUMMARY | 2025-03-09 10:30 | XMS_ITS | Encounter Summary ---
Author Name [facility] Organization [facility] Address [address] [place] [address] Care Team Providers Care Stone Circular Sawyer Name Role Phone MEG JUSTIN Primary Care [...] PART B Jul 24, 2017 PART B [id number] BERTHA SAMPSOND PATIENT MEDICARE (WNR) MEDICARE (M) PART A Jul 24, 2017 PART A [id number] [phone] BERTHA SAMPSON CHARD PATIENT MEDICARE (WNR) MEDICARE (M) PART B Jul 24, 2017 PART B [id number] BERTHA SAMPSON CHARD PATIENT MEDICARE (WNR) MEDICARE (M) PART A Jul 24, 2017 PART A [id number] BERTHA SAMPSOND PATIENT -FO R-LIFE [facility] RE FOR LIFE WNR Jul 24, 2017 FOR LIFE [id number] [phone] ADRIÁNBERTHA MICHELE PATIENT Selected Encounter This section includes the information on record at DC for the Encounter. Date/Time Encounter Type Encounter Description Reason Provider Source Mar 09, 2025 03:30 PM OFFICE O/P EST MOD 30 MIN PRIMARY CARE/MEDICINE ICD-10-CM J18.9 Pneumonia, unspecified organism EMMY FIGUEROA IHAudrey Encounter Template Text not used by DC Assessments - Encounter Diagnoses This section includes the primary and secondary diagnoses documented for the Encounter. Date/Time Primary/Secondary Diagnosis Diagnosis Name Provider Source Mar 13, 2025 10:12 AM PRIMARY Pneumonia, unspecified organism EMMY FIGUEROA [facility] Plan of Treatment: Future Appointments (+ 6 months) and Future Tests (+/- 45 days) The Plan of Treatment section includes future care activities for the patient from all DC treatmentfacilities. This section includes future appointments and future orders which are active, pending or scheduled. Future Appointments This section includes appointments that were scheduled to occur 6 months from the date of the Encounter, up to a maximum of 20 appointments. The data comes from all DC treatment facilities. Appointment Date/Time Appointment Type Appointme nt Facility Name April 06, 2025 01:00 PM AMBULATORY - MEDICINE [facility] April 06, 2025 01:30 PM AMBULATORY - MEDICINE [facility] Apr 24, 2025 03:10 PM AMBULATORY - NONE [facility] May 02, 2025 01:45 PM AMBULATORY - MEDICINE [facility] May 02, 2025 02:45 PM [facility] - MEDICINE [facility] Jun 08, 2025 01:00 PM AMBULATORY - MEDICINE [facility] Jun 08, 2025 02:40 PM AMBULATORY - MEDICINE [facility] Jun 26, 2025 03:30 PM AMBULATORY - NONE [facility] Jul 13, 2025 02:40 PM AMBULATORY - MEDICINE [facility] Jul 31, 2025 01:15 PM AMBULATORY - MEDICINE [facility] Aug 10, 2025 02:00 PM AMBULATORY - MEDICINE [facility] Sep 07, 2025 02:00 PM AMBULATORY - MEDICINE [facility] Active, Pending, and Scheduled Orders This section includes a listing of several types of active, pending, and scheduled orders, including clinic medications orders, diagnostic test orders, procedure orders and consult orders; where the start date of the order is 45 days before the date of the Encounter or 45 days after the date of theEncounter. The data comes from all DC treatment facilities. Test Date/Time Test Type Test Details Facility Name Mar 03, 2025 12:47 PM Consult Order [facility] [id number] Cons Adoption Manager's Choice [facility] Lab Results: +/- 30 days of the encounter This section includes the Chemistry and Hematology Lab Results on record with DC for the patient. Radiology Reports and Pathology Reports are provided separately, in subsequent sections. Lab Results This section contains the Chemistry/Hematology Results that were resulted 30 days before or 30 daysafter the date of the Encounter. Date/Time Source Result Type Result - Unit Interpretation Reference Range Specimen Type Comment Feb 16, 2025 03:05 PM [facility] [place] [facility] FOLATE (PB) SERUM Specimen Type: SERUM No comment entered. Ordering Provider: EMMY FIGUEROA Report Released Date/Time: Feb 16, 2025 02:13 PM Reporting Lab: [place] [facility] [address] [place] [address] Performing Lab: [place] [facility] [address] [place] [address] FOLATE (PB) 14.9 ng/mL 7-20 Feb 16, 2025 03:05 PM [facility] HGA1C BLOOD Specimen Type: BLOOD No comment entered. Ordering Provider: EMMY FIGUEROA Report Released Date/Time: Feb 16, 2025 02:13 PM Reporting Lab: [place] [facility] [address] [place] [address] Performing Lab: [place] [facility] [address] [place] [address] HGA1C 5.5 4.0-6.0 Feb 16, 2025 03:05 PM [facility] B12 SERUM Specimen Type: SERUM No comment entered. Ordering Provider: EMMY FIGUEROA Report Released Date/Time: Feb 16, 2025 02:13 PM Reporting Lab: [place] [facility] [address] [place] [address] Performing Lab: [place] [facility] [address] [place] [address] B12 635 pg/mL 213-816 Feb 16, 2025 03:05 PM [facility] VITAMIN D, 25-HYDROXY SERUM Specimen Type: SE RUM No comment entered. Ordering Provider: EMMY FIGUEROA Report Released Date/Time: Feb 16, 2025 02:13 PM Reporting Lab: [place] [facility] [address] [place] [address] Performing Lab: [place] [facility] [address] [place] [address] VITAMIN D, 25-HYDROXY 61.1 ng/mL 30-96 Feb 16, 2025 03:05 PM [facility] CHOLESTEROL PANEL (PB) PLASMA Specimen Type: P LASMA No comment entered. Ordering Provider: EMMY FIGUEROA Report Released Date/Time: Feb 16, 2025 02:13 PM Reporting Lab: [place] [facility] [address] [place] [address] Performing Lab: [place] [facility] [address] [place] [address] CHOLESTEROL 148 mg/dL 0-200 TRIGLYCERIDE 40 mg/dL 0-150 CALCULATED LDL 87.8 mg/dL HDL(New) 52.2 mg/dL H >40 HDL % OF TOTAL CHOLESTEROL (PB) 35.3 >25 Feb 16, 2025 03:05 PM [facility] TSH (MA-PB) SERUM Specimen Typ e: SERUM No comment entered. Ordering Provider: EMMY FIGUEROA Report Released Date/Time: Feb 16, 2025 02:13 PM Reporting Lab: [place] [facility] [address] [place] [address] Performing Lab: [place] [facility] [address] [place] [address] TSH 4.322 u[IU]/mL 0.47-5 Feb 16, 2025 03:05 PM [facility] COMPREHENSIVE METABOLIC PANEL PLASMA Specimen Type: PLASMA No comment entered. Ordering Provider: EMMY FIGUEROA Report Released Date/Time: Feb 16, 2025 02:13 PM Reporting Lab: [place] [facility] [address] [place] [address] Performing Lab: [place] [facility] [address] [place] [address] CREATININE 0.88 mg/dL 0.7-1.3 UREA NITROGEN 14 [...] 2020) 91 Feb 16, 2025 03:05 PM [facility] CBC BLOOD Specimen Type: BLOOD No comment entered. Ordering Provider: EMMY FIGUEROA Report Released Date/Time: Feb 16, 2025 02:13 PM Reporting Lab: [facility] [address] [place] [address] Performing Lab: [facility] [address] [facility] [place] [address] WBC 6.0 10*3/uL 3.6-11.2 RBC 4.45 10*6/uL [...] Pain Height Weight Body Mass Index Source Mar 09, 2025 12:37 PM 98.3 89 121/61 20 95 9 136.5 22 [facility] Social History: Smoking Status (Most current) and Tobacco Use (All prior to encounter date) This section includes the most current, and the historical, smoking and tobacco- related health factors from the DC facility where the Encounter took place. Current Smoking Status This section includes the most current smoking, or tobacco-related health factor, from the DC facility where the Encounter took place. Date/Time Current Smoking Status Comment Peggy vaughan Feb 16, 2025 02:00 PM VA-TOBACCO USE FORMER CIGARETTES [facility] Tobacco Use History This section includes a history of the smoking, or tobacco-related health factors, that were collected on or before the date of the Encounter. The data comes from the DC facility where the Encounter took place. Date/Time Smoking Status/Tobacco Use Comment F lillie Feb 16, 2025 02:00 PM VA-TOBACCO USE FOR CHRISTINE CIGARETTES [facility] Jan 19, 2024 03:00 PM VA-TOBACCO FORMER USER [facility] Jan 19, 2024 03:00 PM VA-TOBACCO QUIT 15 YRS OR MORE [facility] Jan 15, 2023 03:00 PM VA-TOBACCO FORMER USER [facility] Jan 15, 2023 03:00 PM VA-TOBACCO QUIT 15 YRS OR MORE [facility] Aug 18, 2018 11:12 AM QUIT TOBACCO >7 YEARS AGO [facility] April 06, 2018 01:14 PM QUIT TOBACCO >7 YEARS AGO [facility] Oct 20, 2017 12:17 PM QUIT TOBACCO >7 YEARS AGO [facility] Nov 14, 2009 11:45 AM [...] Smoked 1 ppd SOme cigars and pipe [facility] Advance Directives: All historical and current Section Date Range: From patient's date of to the date document was created. This section includes ALL of a patient's completed or amended DC Advance and Rescinded Directives. The entries below indicate that a directive exists for the patient, but an actual copy is not included with this document. The data comes from all DC facilities. Date Advance Directives Provider Source Nov 21, 2011 ADVANCE DIRECTIVE DISCUSSION WALT OWENS [facility] Radiology Reports: +/- 30 days of [...] the Encounter. The data comes from all DC treatment facilities. Date/Time Radiology Report Provider Source Mar 09, 2025 01:02 PM CHEST X-RAY, 2 VIE WS: ITALONILSLEXI CHANO [id number] [id number] M Exm Date: MAR 09, 2025@13:02 Req Phys: EMMY FIGUEROA Pat Loc: PB-SARAH PACT ALEXIS WINDING DEPARTMENT SUPERVISOR (Req'g Lo Img Loc: PB-XRAY [place] Service: [place] [address] (Case [id number] COMPLETE) CHEST X-RAY, 2 VIEWS (RAD Detailed) CPT:33220 Reason for Study: Fever and congestion and cough Clinical History: Report Status: Verified Date Reported: MAR 09, 2025 Date Verified: MAR 09, 2025 Cant Gang Sawyer E-Sig: Report: PA and lateral views of the chest reveal degenerative skeletal changes, atherosclerotic calcification and moderate bilateral pulmonary hyperaeration. There is irregular density compatible with scant infiltrate in the medial left lower lobe. There is no effusion. Heart size is normal. Impression: Small LLL infiltrate Primary Interpreting Staff: EMMA HUMPHREY, RADIOLOGIST (Cant Gang Sawyer, no e-sig) /[facility]ch [facility] [place] [facility] Encounter Notes: All associated encounter notes This section contains the clinical notes associated to the Encounter. Date/Time Encounter Note(s) Provider Source Mar 09, 2025 12:54 PM PRIMARY CARE PROGR ESS NOTE: LOCAL TITLE: PRIMARY CARE CLINIC PROGRESS NOTE PB STANDARD TITLE: PRIMARY CARE PROGRESS NOTE DATE OF NOTE: MAR 09, 2025@12:54 ENTRY DATE: MAR 09, 2025@12:54:29 AUTHOR: EMMY FIGUEROA EXP COSIGNER: URGENCY: STATUS: COMPLETED Date & Time:Feb@12:55 This is a 74 year old MALE Allergies: Patient has answered NKA CC: Fever, cough and congestion for 5 days HPI: presented today with a scheduled appointment for fever cough and congestion for 5 days states he has been having a fever but she does not have a thermometer. Abie is taking Augmentin but he states he is taking it for an infected tooth and he did see a dentist today that confirmed that he does have an abscessed tooth. also states that his left foot is swelling occasionally not every day just occasionally but is only in the left not the left and the right. Temperature: 98.3 F [36.8 C] (03/09/2025 12:37) Respiratory Rate: 20 (03/09/2025 12:37) Pulse Rate: 89 (03/09/2025 12:37) Blood Pressure: 121/61 (03/09/2025 12:37) HT: 66.5 in [168.9 cm] (10/18/2012 10:37) WT: 136.5 lb [61.92 kg] (03/09/2025 12:37) BMI: 21.7 95% (03/09/2025 12:37) REVIEW OF SYSTEMS: HEENT: Sinus congestion headache currently being treated for a dental abscess seen by dentist today. Cough congestion. RESPIRATORY: Productive cough green sputum. CARDIOVASCULAR: No chest pain, palpitations, tachycardia, PND, or orthopnea. GI: No abdominal pain, nausea, vomiting, diarrhea, constipation, melena, or hematochezia. : No dysuria, hematuria, urinary frequency, weak stream, or post-void dribbling. MUSCULOSKELETAL: No muscle or joint pain. PSYCH: No depression and anxious at this time. Not suicidal. 1) HLD - Hyperlipidemia (SNOMED CT 42980484) 2) CAD - Coronary artery disease (SNOMED CT 62256823) 3) Low back pain (SNOMED CT 842466121) 4) Carpal tunnel syndrome 5) Prediabetes 6) Chronic gastritis 7) Telangiectasia of colon 8) LBBB - Left bundle branch block 9) Idiopathic Raynaud's phenomenon 10) Sensorineural hearing loss of bilateral ears Active Outpatient Medications (including Supplies): Active Outpatient Medications Status 1) DEPEND UNDERWEAR,MAXIMUM,WMN MEDIUM USE 1 DIAPER TO AFFECTED ACTIVE AREA(S) TWICE DAILY NEEDED Indication: FOR INCONTINENCE 2) NUTRITION SUPL ENSURE PLUS/VANILLA LIQ TAKE 1 CANFUL BY ACTIVE MOUTH ONCE A DAY Indication: FOR NUTRITION SUPPLEMENTATION Active Non-VA Medications Status 1) Non-VA ASPIRIN 81MG EC TAB 81MG BY MOUTH ONCE A DAY ACTIVE 2) Non-VA BIOTIN 5MG CAP 10MG BY MOUTH ONCE A DAY ACTIVE 3) Non-VA CHOLECALCIF 50MCG (D3-2,000UNIT) TAB 50MCG BY MOUTH ACTIVE ONCE A DAY 4) Non-VA CLOTRIMAZOLE 1% TOP CREAM LIGHTLY TO AFFECTED AREA(S) ACTIVE TWICE A DAY 5) Non-VA CYANOCOBALAMIN 1000MCG TAB 1000MCG BY MOUTH ONCE A ACTIVE DAY 6) Non-VA FISH OIL 1000MG (500MG DHA/EPA) CAP 1000MG BY MOUTH ACTIVE TWICE A DAY 7) Non-VA FISH OIL 1000MG (500MG DHA/EPA) CAP 1000MG BY MOUTH ACTIVE TWICE A DAY 8) Non-VA GRAPE SEED EXTRACT CAP/TAB 1 CAP/TAB BY MOUTH ACTIVE 9) Non-VA ISOSORBIDE MONONITRATE 30MG SA TAB 30MG BY MOUTH ONCE ACTIVE A DAY 10) Non-VA MELATONIN 1MG CAP/TAB 1MG BY MOUTH AT BEDTIME ACTIVE 11) Non-VA MILK THISTLE CAP/TAB BY MOUTH ACTIVE 12) Non-VA MULTIVITAMIN CAP/TAB 1 TABLET BY MOUTH ONCE A DAY ACTIVE Indication: FOR NUTRITION/DIETARY SUPPLEMENTATION 13) Non-VA MULTIVITAMIN/MINERAL ANTIOXIDANT CAP/TAB 1 CAP/TAB BY ACTIVE MOUTH ONCE A DAY 14) Non-VA NIFEDIPINE (EQV-CC) 30MG SA TAB 30MG BY MOUTH ONCE A ACTIVE DAY 15) Non-VA NITROGLYCERIN 0.4MG SL TAB 0.4MG UNDER THE TONGUE ACTIVE ONE-TIME NEEDED 16) Non-VA SIMVASTATIN 40MG TAB 20MG BY MOUTH EVERY EVENING ACTIVE 17) Non-VA TURMERIC CAP/TAB BY MOUTH ACTIVE 19 Total Medications OBJECTIVE: Physical Exam General: NAD noted, A&Ox3, pleasant, appears stated age HEENT: NCAT, TM's clear, nares and oropharynx clear Neck: Supple with normal active ROM, without any lymphadenopathy Heart: RRR, no murmur, clicks, or rub Resp: Lungs on auscultation diminished bilaterally both lower lobes denies shortness of breath Abdomen: Soft, non-distended, non-tender Ext: No clubbing, cyanosis, edema or obvious deformity Neuro: Grossly intact Psych: Affect normal, answers questions appropriately throughout visit Assessment/Plan: Pneumonia -current Plan to give prescription of doxycycline to to take to pharmacy of choice. Will give ceftriaxone IM today Follow-up: as needed. Discussed with patient that in the event of community imaging / testing being ordered in the future, once the imaging / testing has been completed, please notify PACT of completion at outside facility if not called with results within 1 week by a DC PACT member; this is due to intermittent lapses in notification of imaging completion within CPR[facility]. All questions answered; agrees to plan of care. Follow up as listed above, annually, and as needed. Keep all appointments. Medications Reconciled. See AVS given to . Time spent 30 minutes. Emmy COREAS /maddy/ MAGGIE Rod, MSN, [facility] Signed: 03/09/2025 16:39 EMMY FIGUEROA [facility] CB Mar 09, 2025 12:28 PM PRIMARY CARE NURSI NG NOTE: LOCAL TITLE: PRIMARY CARE NURSING PROGRESS NOTE (TEXT) NURSING P STANDARD TITLE: PRIMARY CARE NURSING NOTE DATE OF NOTE: MAR 09, 2025@12:28 ENTRY DATE: MAR 09, 2025@12:28:05 AUTHOR: JB RIDER COSIGNER: URGENCY: STATUS: COMPLETED Established Patient LEXI SAMPSON IS A 74 YEAR OLD MALE BEING SEEN IN CLINIC MAR 09, 2025. == == REASON FOR VISIT: Fever 100.6, cough, congestion, sorethroat for past few weeks. Dental infection, Thursday to get tooth pulled.. [facility] put him on Augmentin bid x 10 days. Are you receiving care any where other than the DC? Yes, List: Jovanna Pruitt NP [facility] HEALTH AND SURGICAL HISTORY: Does patient report using home oxygen? CURRENT ACTIVE MEDICATIONS FOR REVIEW: Allergies/ADRs (Tool #5) FACILITY ALLERGY/ADR -------- WARNING: Connection to Remote Data Currently Down [facility] No Known Allergies Med. Reconciliation (Tool #1) WARNING: Connection to Remote Data Currently Down INCLUDED IN THIS LIST: Alphabetical list of active outpatient prescriptions dispensed from this DC (local) and dispensed from another DC or [facility] facility (remote) as well as inpatient orders (local pending and active), local clinic medications, locally documented non-VA medications, and local prescriptions that have or been discontinued in the past 90 days. Non-VA Meds Last Documented On: Feb 16, 2025 NOTE The display of VA prescriptions dispensed from another VA or DoD facility (remote) is limited to active outpatient prescription entries matched to National Drug File at the originating site and may not include some items such as investigational drugs, compounds, etc. NOT INCLUDED IN THIS LIST: Medications self-entered by the patient into personal health records (i.e. [employer]) are NOT included in this list. Non-VA medications documented outside this DC, remote inpatient orders (regardless of status) and remote clinic medications are NOT included in this list. The patient and provider must always discuss medications the patient is taking, regardless of where the medication was dispensed or obtained. Non-VA ASPIRIN 81MG EC TAB TAKE ONE TABLET BY MOUTH ONCE A DAY Patient wants to buy from Non-VA pharmacy Non-VA BIOTIN 5MG CAP TAKE 2 CAPSULES BY MOUTH ONCE A DAY VA RX: Patient wants to buy from Non-VA pharmacy Non-VA CHOLECALCIF 50MCG (D3-2,000UNIT) TAB TAKE ONE TABLET BY MOUTH ONCE A DAY Patient wants to buy from Non-VA pharmacy. Non-VA CLOTRIMAZOLE 1% TOP CREAM APPLY LIGHTLY TO AFFECTED AREA(S) TWICE A DAY Patient wants to buy from Non-DC pharmacy. Non-VA CYANOCOBALAMIN 1000MCG TAB TAKE ONE TABLET BY MOUTH ONCE A DAY VA RX: Patient wants to buy from Non-DC pharmacy Non-VA FISH OIL 1000MG (500MG DHA/EPA) CAP TAKE 1 CAPSULE BY MOUTH TWICE A DAY VA RX: Patient wants to buy from Non-DC pharmacy Non-VA FISH OIL 1000MG (500MG DHA/EPA) CAP TAKE 1 CAPSULE BY MOUTH TWICE A DAY VA RX: Patient wants to buy from Non-DC pharmacy Non-VA GRAPE SEED EXTRACT CAP/TAB TAKE 1 CAP/TAB BY MOUTH VA RX: Patient wants to buy from Non-DC pharmacy Non-VA ISOSORBIDE MONONITRATE 30MG SA TAB TAKE ONE TABLET BY MOUTH ONCE A DAY Patient wants to buy from Non-DC pharmacy Non-VA MELATONIN 1MG CAP/TAB TAKE 1 CAP/TAB BY MOUTH AT BEDTIME VA RX: Patient wants to buy from Non-DC pharmacy Non-VA MILK THISTLE CAP/TAB TAKE BY MOUTH VA RX: Patient wants to buy from Non-DC pharmacy Non-VA MULTIVITAMIN CAP/TAB TAKE ONE TABLET BY MOUTH ONCE A DAY Indication: FOR NUTRITION/DIETARY SUPPLEMENTATION Non-VA MULTIVITAMIN/MINERAL ANTIOXIDANT CAP/TAB ANTIOXIDANT CAP/TAB TAKE 1 CAP/TAB BY MOUTH ONCE A DAY VA RX: Patient wants to buy from Non-DC pharmacy Non-VA NIFEDIPINE (EQV-CC) 30MG SA TAB TAKE ONE TABLET BY MOUTH ONCE A DAY Patient wants to buy from Non-DC pharmacy Medication prescribed by Non-DC provider Non-VA NITROGLYCERIN 0.4MG SL TAB DISSOLVE ONE TABLET UNDER THE TONGUE ONE-TIME NEEDED Patient wants to buy from Non-DC pharmacy. OUTPT NUTRITION SUPL ENSURE PLUS/NITESH LIQUID (Status = ) TAKE 1 CANFUL BY MOUTH ONCE A DAY FOR NUTRITION SUPPLEMENTATION Rx# [id number] Last Released: 12/19/24 Qty/Days Supply: Rx Expiration Date: 01/05/25 Refills Remainin Indication: FOR NUTRITION SUPPLEMENTATION OUTPT NUTRITION SUPL ENSURE PLUS/VANILLA LIQ (Status = Active) TAKE 1 CANFUL BY MOUTH ONCE A DAY FOR NUTRITION SUPPLEMENTATION Rx# [id number] Last Released: 02/17/25 Qty/Days Supply: Rx Expiration Date: 02/17/26 Refills Remainin Indication: FOR NUTRITION SUPPLEMENTATION Non-VA SIMVASTATIN 40MG TAB TAKE ONE-HALF TABLET BY MOUTH EVERY EVENING Medication prescribed by Non-VA provider Non-VA TURMERIC CAP/TAB TAKE BY MOUTH VA RX: Patient wants to buy from Non-DC pharmacy SUPPLIES OUTPT DEPEND UNDERWEAR,MAXIMUM,WMN MEDIUM (Status = Active) USE 1 DIAPER TO AFFECTED AREA(S) TWICE DAILY NEEDED FOR INCONTINENCE Rx# [id number] Last Released: 02/20/25 Qty/Days Supply: / Rx Expiration Date: 02/17/26 Refills Remainin Indication: FOR INCONTINENCE OUTPT DRESS,AQUACEL AG ADV [id number] C#[id number] (Status = ) USE/APPLY DRESSING(S) TO AFFECTED AREA(S) EVERY THREE (3) DAYS APPLY TO TOES Rx# [id number] Last Released: 02/24/24 Qty/Days Supply: 04/21 Rx Expiration Date: 02/22/25 Refills Remainin PHARMACY TERMS AND POSSIBLE PATIENT ACTIONS INPT = DC inpatient order IV = DC intravenous medication OUTPT = DC outpatient prescription PHARMACY POSSIBLE PATIENT TERMS EXPLANATION ACTIONS -------- ----- ACTIVE A prescription that can be If [...] more of this picked up at the DC pharmacy medication. window. A prescription which is [...] the VA. Or, it may be an wvor-zds-yvwgbhy (OTC), herbal, dietary supplements or sample medication. ON HOLD An active prescription that will Contact your VA not be filled until pharmacy pharmacy when you need resolves the issue. more of this medication. PARKED An active prescription that will Contact your DC not be filled until the patient pharmacy when you need requests it. this medication. PENDING This prescription order has been If you have been sent to the pharmacy for review instructed to start and is not ready yet. this medication now, contact your VA pharmacy. SUSPENDED An active prescription that is Contact your DC not scheduled to be filled yet. pharmacy if you need You should receive it before this medication now. you run out. Medication list reviewed with Patient Patient/Caregiver reports taking medications as ordered. IS PATIENT TAKING ANY OVER THE COUNTER MEDICATIONS, SUCH VITAMINS OR HERBAL SUPPLEMENTS, INCLUDING ANY MEDICATIONS PRESCRIBED BY ANOTHER PHYSICIAN? No Does patient have any new allergies to report since last visit? NO VITALS: TEMPERATURE: 97.8 F [36.6 C] (02/16/2025 14:31) BP: 123/78 (02/16/2025 14:31) RESP: 18 (02/16/2025 14:31) PULSE: 72 (02/16/2025 14:31) HT: 66.5 in [168.9 cm] (10/18/2012 10:37) WT: 129.2 lb [58.60 kg] (03/17/2024 12:27) BMI: 20.6 PAIN ASSESSMENT: (Most Recent Pain Score in Vitals Package: 7 (02/16/2025 14:31) ) The patient indicated that they and [...] Now let us serve you. At the [facility], we strive to provide you with exceptional [...] Not At All SPIRITUAL ASSESSMENT: Are there hoahaoism practices or spiritual concerns you want the air traffic coordinator, your physician, and other health care team members to immediately know about? Yes Patient advised to call the clinic for any concerns, questions, or symptoms. Patient and/or caregiver verbalized understanding of plan of care. Per [facility] Directive 1605.06, wristband documentation: Patient wristband was removed and destroyed by (staff name) Jb Rider and placed in the designated [employer] bin. Pain Assessment: - PAIN ASSESSMENT: .. This patient's last pain assessment score was: 9 (03/09/2025 12:37). A detailed pain assessment showed the following: Location of current pain Throat Patient's self identified pain goal: 9 VVC DIGITAL DIVIDE CAPABILITY REMINDER: Patient is not interested in VVC at this time. 'S RIGHT TO DECLINE STATEMENT Abie understands they have the right to decline the use of Tele[employer] Technology at any time without adverse affects on their continued access to healthcare. Patient/Nurse Interview: * * Patient stated that adequate information was received regarding the condition and/or treatment. /maddy/ JB RIDER LPN [facility] Signed: 03/09/2025 12:43 JB RIDER [facility]
--- OUTSIDE RECORDS SUMMARY | 2025-04-06 08:00 | XMS_ITS | Encounter Summary ---
Author Name [facility] [place] [facility] [place] Address [address] [place] [address] Care Team Providers Care Mobile Paint Specialist Name Role Phone MEG JUSTIN Primary Care [...] PART A Jul 24, 2017 PART A [id number] BERTHA SAMPSON PATIENT MEDICARE (WNR) MEDICARE (M) PART A Jul 24, 2017 PART A [id number] [phone] BERTHA SAMPSON CHARD PATIENT MEDICARE (WNR) MEDICARE (M) PART B Jul 24, 2017 PART B [id number] BERTHA SAMPSON CHARD PATIENT MEDICARE (WNR) MEDICARE (M) PART B Jul 24, 2017 PART B [id number] ITALONILSBERTHA LANEYD PATIENT -FO R-LIFE TRICA RE FOR LIFE WNR Jul 24, 2017 FOR LIFE [id number] [phone] BERTHA SAMPSON PATIENT Selected Encounter This section includes the information on record at [place] for the Encounter. 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 Date/Time Primary/Secondary Diagnosis Diagnosis Name Provider Source April 06, 2025 01:13 PM PRIMARY Segmental and somatic dysfunction of cervical region MARY LOU RESTREPO [facility] April 06, 2025 01:13 PM SECONDARY Cervicalgia MARY LOU RESTREPO [facility] April 06, 2025 01:13 PM SECONDARY Oth intvrt disc degen, lumbosacr rgn w discog bck pain only MARY LOU RESTREPO [facility] April 06, 2025 01:13 PM SECONDARY Pain in thoracic spine [facility] LOU RESTRE[facility] April 06, 2025 01:13 PM SECONDARY Segmental and somatic dysfunction of lumbar region MARY LOU RESTREPO [facility] April 06, 2025 01:13 PM SECONDARY Segmental and somatic dysfunction of pelvic region MARY LOU RESTREPO [facility] April 06, 2025 01:13 PM SECONDARY Segmental and somatic dysfunction of thoracic region MARY LOU RESTREPO [facility] Plan of Treatment: Future Appointments (+ 6 months) and Future Tests (+/- 45 days) The Plan of Treatment section includes future care activities for the patient from all [place] treatmentfacilities. This section includes future appointments and future orders which are active, pending or scheduled. Future Appointments This section includes appointments that were scheduled to occur 6 months from the date of the Encounter, up to a maximum of 20 appointments. The data comes from all [place] treatment facilities. Appointment Date/Time Appointment Type Appointme nt Facility Name Apr 24, 2025 03:10 PM AMBULATORY - NONE [facility] May 02, 2025 01:45 PM [facility] [place] [facility] May 02, 2025 02:45 PM AMBULATORY - MEDICINE [facility] Jun 08, 2025 01:00 PM [facility] Jun 08, 2025 02:40 PM AMBULATORY - MEDICINE [facility] Jun 26, 2025 03:30 PM AMBULATORY - NONE [facility] Jul 13, 2025 02:40 PM AMBULATORY - MEDICINE [facility] Jul 31, 2025 01:15 PM AMBULATORY - MEDICINE [facility] Aug 10, 2025 02:00 PM AMBULATORY - MEDICINE [facility] Sep 07, 2025 02:00 PM AMBULATORY - MEDICINE [facility] Oct 05, 2025 02:40 PM AMBULATORY - MEDICINE [facility] Active, Pending, and Scheduled Orders This section includes a listing of several types of active, pending, and scheduled orders, including clinic medications orders, diagnostic test orders, procedure orders and consult orders; where the start date of the order is 45 days before the date of the Encounter or 45 days after the date of theEncounter. The data comes from all [place] treatment facilities. Test Date/Time Test Type Test Details Facility Name Mar 03, 2025 12:47 PM Consult Order [facility]HEUMATOLOGY [id number] Cons Video Library Assistant's Choice LESLIE BEJAR[facility] Vital Signs: All taken on the encounter date This section contains inpatient and outpatient Vital Signs collected on the date of the Encounter. Date/Time Temperature Pulse Blood Pressure Respiratory Rate SP02 Pain Height Weight Body Mass Index Source April 06, 2025 01:00 PM 97.8 77 133/74 [facility] Social History: Smoking Status (Most current) and Tobacco Use (All prior to encounter date) This section includes the most current, and the historical, smoking and tobacco- related health factors from the [place] facility where the Encounter took place. Current Smoking Status This section includes the most current smoking, or tobacco-related health factor, from the [place] facility where the Encounter took place. Date/Time Current Smoking Status Comment Facil ity Feb 16, 2025 02:00 PM VA-TOBACCO USE FORMER CIGARETTES [facility] Tobacco Use History This section includes a history of the smoking, or tobacco-related health factors, that were collected on or before the date of the Encounter. The data comes from the [place] facility where the Encounter took place. Date/Time Smoking Status/Tobacco Use Comment F acility Feb 16, 2025 02:00 PM VA-TOBACCO USE FOR CHRISTINE CIGARETTES [facility] Jan 19, 2024 03:00 PM VA-TOBACCO FORMER USER [facility] Jan 19, 2024 03:00 PM VA-TOBACCO QUIT 15 YRS OR MORE [facility] Jan 15, 2023 03:00 PM VA-TOBACCO FORMER USER [facility] Jan 15, 2023 03:00 PM VA-TOBACCO QUIT 15 YRS OR MORE [facility] Aug 18, 2018 11:12 AM QUIT TOBACCO >7 YEARS AGO [facility] April 06, 2018 01:14 PM QUIT TOBACCO >7 YEARS AGO [facility] Oct 20, 2017 12:17 PM QUIT TOBACCO >7 YEARS AGO [facility] Nov 14, 2009 11:45 AM QUIT TOBACCO >7 YEARS AGO [facility] Dec 01, 2008 10:15 AM QUIT TOBACCO >7 YEARS AGO [facility] Feb 08, 2008 10:47 AM QUIT TOBACCO >7 YEARS AGO [facility] Jan 26, 2007 10:41 AM QUIT TOBACCO >7 YEARS AGO [facility] Jul 29, 2006 11:06 AM CURRENT NON-TOBACC O USER-HX OF USE [facility] Jul 31, 2005 10:14 AM CURRENT NON-TOBACC O USER-HX OF USE [facility] Dec 16, 2004 04:12 PM CURRENT NON-TOBACC O USER-HX OF USE Stopped 1982 [facility] Sep 10, 2004 09:51 AM CURRENT NON-TOBACC O USER-HX OF USE [facility] Feb 19, 2004 01:46 PM CURRENT NON-TOBACC O USER-HX OF USE Stopped in 1981 after smoking for 20 years Smoked 1 ppd SOme cigars and pipe [facility] Advance Directives: All historical and current Section Date Range: From patient's date of to the date document was created. This section includes ALL of a patient's completed or amended VA Advance and Rescinded Directives. The entries below indicate that a directive exists for the patient, but an actual copy is not included with this document. The data comes from all [place] facilities. Date Advance Directives Provider Source Nov 21, 2011 ADVANCE DIRECTIVE DISCUSSION [facility] Radiology Reports: +/- 30 days [...] the Encounter. The data comes from all [place] treatment facilities. 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 There is irregular density compatible with scant infiltrate in the medial left lower lobe. There is no effusion. Heart size is normal. Impression: Small LLL infiltrate Primary Interpreting Staff: EMMA HUMPHREY RADIOLOGIST (Drawing Checker, no e-sig) /EMMA Bosch [facility] Encounter Notes: All associated encounter notes This section contains the clinical notes associated to the Encounter. Date/Time Encounter Note(s) Provider Source April 06, 2025 01:01 PM CHIROPRACTIC NOTE: LOCAL TITLE: CHIROPRACTIC FOLLOW UP NOTE PB STANDARD TITLE: CHIROPRACTIC NOTE DATE OF NOTE: APRIL 06, 2025@13:01 ENTRY DATE: APRIL 06, 2025@13:01:15 AUTHOR: MARY LOU RESTREPOIGNER: URGENCY: STATUS: COMPLETED CHIROPRACTIC FOLLOW-UP VISIT Patient's language preference for health information: Croatian Other Communication Methods Needed: SUBJECTIVE: The is a 74 year old MALE being seen in the Chiropractic clinic for follow-up visit. The Kamrar states his neck and back are doing fairly well, with pain in his right shoulder. Today, the [...] planned six treatments. We will treat The Kamrar once every four weeks for six treatments. [...] initial and/or continued trial is not expected. Kamrar has reported meaningful improvement of reasonable duration but has plateaued and reached MMI from furnace caretaker. Kamrar had experience degradation in functional gains after some period when furnace caretaker was withdrawn. All other indicated medical, psychological, behavioral, and social interventions have been tried or considered. Appropriate active care and self-management strategies are part of the overall treatment plan and patients are compliant with recommendations. /maddy/ [facility] Signed: 04/06/2025 13:12 [facility] LOU RESTREPO [facility]
--- OUTSIDE RECORDS SUMMARY | 2025-05-02 07:35 | XMS_ITS | Encounter Summary ---
Author Name [facility] [place] Address [address] [place] [address] Care Team Providers Care Toll Bridge Attendant Name Role Phone MEG JUSTIN Primary Care [...] PART B Jul 24, 2017 PART B [id number] [phone] BERTHA SAMPSOND PATIENT MEDICARE (WNR) MEDICARE (M) PART A Jul 24, 2017 PART A [id number] BERTHA SAMPSON CHARD PATIENT MEDICARE (WNR) MEDICARE (M) PART B Jul 24, 2017 PART B [id number] BERTHA SAMPSON CHARD PATIENT MEDICARE (WNR) MEDICARE (M) PART A Jul 24, 2017 PART A [id number] BERTHA SAMPSOND PATIENT -FO R-LIFE TRICA RE FOR LIFE WNR Jul 24, 2017 FOR LIFE [id number] [phone] ADRIÁNBERTHA MICHELE PATIENT Selected Encounter This section includes the information on record at [place] for the Encounter. Date/Time Encounter Type Encounter Description Reason Pro vider Source May 02, 2025 12:35 PM Outpatient Encounter ADMIN PAT ACTIVTIES (MASNONCT) IHE Encounter Template Text not used by [place] Plan of Treatment: Future Appointments (+ 6 months) and Future Tests (+/- 45 days) The Plan of Treatment section includes future care activities for the patient from all [place] treatmentfacilities. This section includes future appointments and future orders which are active, pending or scheduled. Future Appointments This section includes appointments that were scheduled to occur 6 months from the date of the Encounter, up to a maximum of 20 appointments. The data comes from all [place] treatment facilities. Appointment Date/Time Appointment Type Appointme nt Facility Name Jun 08, 2025 01:00 PM AMBULATORY - MEDICINE [facility] Jun 08, 2025 02:40 PM AMBULATORY - MEDICINE [facility] Jun 26, 2025 03:30 PM AMBULATORY - NONE [facility] Jul 13, 2025 02:40 PM AMBULATORY - MEDICINE [facility] Jul 31, 2025 01:15 PM AMBULATORY - MEDICINE [facility] Aug 10, 2025 02:00 PM AMBULATORY - MEDICINE [facility] Sep 07, 2025 02:00 PM AMBULATORY - MEDICINE [facility] Oct 05, 2025 02:40 PM AMBULATORY - MEDICINE [facility] Vital Signs: All taken on the encounter date This section contains inpatient and outpatient Vital Signs collected on the date of the Encounter. Date/Time Temperature Pulse Blood Pressure Respiratory Rate SP02 Pain Height Weight Body Mass Index Source May 02, 2025 02:44 PM 98 78 128/78 [facility] Social History: Smoking Status (Most current) and Tobacco Use (All prior to encounter date) This section includes the most current, and the historical, smoking and tobacco- related health factors from the [place] facility where the Encounter took place. Current Smoking Status This section includes the most current smoking, or tobacco-related health factor, from the [place] facility where the Encounter took place. Date/Time Current Smoking Status Marybeth vaughan Feb 16, 2025 02:00 PM VA-TOBACCO USE FORMER CIGARETTES [facility] Tobacco Use History This section includes a history of the smoking, or tobacco-related health factors, that were collected on or before the date of the Encounter. The data comes from the [place] facility where the Encounter took place. Date/Time Smoking Status/Tobacco Use Comment F acility Feb 16, 2025 02:00 PM VA-TOBACCO USE FOR CHRISTINE CIGARETTES [facility] Jan 19, 2024 03:00 PM VA-TOBACCO FORMER USER [facility] Jan 19, 2024 03:00 PM VA-TOBACCO QUIT 15 YRS OR MORE [facility] Jan 15, 2023 03:00 PM VA-TOBACCO FORMER USER [facility] Jan 15, 2023 03:00 PM VA-TOBACCO QUIT 15 YRS OR MORE [facility] Aug 18, 2018 11:12 AM QUIT TOBACCO >7 YEARS AGO [facility] April 06, 2018 01:14 PM QUIT TOBACCO >7 YEARS AGO [facility] Oct 20, 2017 12:17 PM QUIT TOBACCO >7 YEARS AGO [facility] Nov 14, 2009 11:45 AM QUIT TOBACCO >7 YEARS AGO [facility] Dec 01, 2008 10:15 AM QUIT TOBACCO >7 YEARS AGO [facility] Feb 08, 2008 10:47 AM QUIT TOBACCO >7 YEARS AGO [facility] Jan 26, 2007 10:41 AM QUIT TOBACCO >7 YEARS AGO [facility] Jul 29, 2006 11:06 AM CURRENT NON-TOBACC O USER-HX OF USE [facility] Jul 31, 2005 10:14 AM CURRENT NON-TOBACC O USER-HX OF USE [facility] Dec 16, 2004 04:12 PM CURRENT NON-TOBACC O USER-HX OF USE Stopped 1982 [facility] Sep 10, 2004 09:51 AM CURRENT NON-TOBACC O USER-HX OF USE [facility] Feb 19, 2004 01:46 PM CURRENT NON-TOBACC O USER-HX OF USE Stopped in 1981 after smoking for 20 years Smoked 1 ppd SOme cigars and pipe [facility] Advance Directives: All historical and current Section Date Range: From patient's date of to the date document was created. This section includes ALL of a patient's completed or amended VA Advance and Rescinded Directives. The entries below indicate that a directive exists for the patient, but an actual copy is not included with this document. The data comes from all [place] facilities. Date Advance Directives Provider Source Nov 21, 2011 ADVANCE DIRECTIVE DISCUSSION [facility] Encounter Notes: All associated encounter notes This section contains the clinical notes associated to the Encounter. Date/Time Encounter Note(s) Provider Source May 02, 2025 12:36 PM GENERAL MEDICINE N OTE: LOCAL TITLE: General Note PB STANDARD TITLE: GENERAL MEDICINE NOTE DATE OF NOTE: MAY 02, 2025@12:36 ENTRY DATE: MAY 02, 2025@12:36:04 AUTHOR: LONA OSBORNE EXP COSIGNER: URGENCY: STATUS: COMPLETED General Note PB Has ADDENDA is requesting a new network support manager his doesn't seem to hold a charge and doesn't always light up when plugged in /maddy/ LONA OSBORNE Telehealth Clinical Resource Specialist Teacher Signed: 05/02/2025 12:37 Receipt Acknowledged By: 05/02/2025 13:20 /maddy/ Jong Negron [facility] 05/02/2025 ADDENDUM STATUS: COMPLETED Ordered [employer] ASSOCIATE to home address. /maddy/ Jong Negron [facility] Signed: 05/02/2025 13:20 LONA OSBORNE CB
--- OUTSIDE RECORDS SUMMARY | 2025-05-02 08:45 | XMS_ITS | Encounter Summary ---
Author Name [facility] [place] Address [address] [place] [address] Care Team Providers Care Photographic Double Name Role Phone JUSTIN WEAVER Primary Care [...] PART A Jul 24, 2017 PART A [id number] BERTHA SAMPSON CHARD PATIENT MEDICARE (WNR) MEDICARE (M) PART B Jul 24, 2017 PART B [id number] BERTHA SAMPSON CHARD PATIENT MEDICARE (WNR) MEDICARE (M) PART A Jul 24, 2017 PART A [id number] BERTHA SAMPSON CHARD PATIENT MEDICARE (WNR) MEDICARE (M) PART B Jul 24, 2017 PART B [id number] [phone] BERTHA SAMPSOND PATIENT -FO R-LIFE TRICA RE FOR LIFE WNR Jul 24, 2017 FOR LIFE [id number] [phone] BERTHA SAMPSON PATIENT Selected Encounter This section includes the information on record at [place] for the Encounter. Date/Time Encounter Type Encounter Description Reason Provider Source May 02, 2025 01:45 PM OFF/OP EST MARCH X REQ PHY/QHP PRIMARY CARE/MEDICINE ICD-10-CM R21 Rash and other nonspecific skin eruption JENNI FAJARDO Audrey Encounter Template Text not used by [place] Assessments - Encounter Diagnoses This section includes the primary and secondary diagnoses documented for the Encounter. Date/Time Primary/Secondary Diagnosis Diagnosis Name Provider Source May 02, 2025 02:52 PM PRIMARY Rash and other nonspecific skin eruption AMADASTEVENJENNI Glass [facility] Plan of Treatment: Future Appointments (+ [...] 08, 2025 01:00 PM AMBULATORY - MEDICINE [facility] Jun 08, 2025 02:40 PM AMBULATORY - MEDICINE [facility] Jun 26, 2025 03:30 PM AMBULATORY - NONE [facility] Jul 13, 2025 02:40 PM AMBULATORY - MEDICINE [facility] Jul 31, 2025 01:15 PM AMBULATORY - MEDICINE [facility] Aug 10, 2025 02:00 PM AMBULATORY - MEDICINE [facility] Sep 07, 2025 02:00 PM AMBULATORY - MEDICINE [facility] Oct 05, 2025 02:40 PM AMBULATORY - MEDICINE [facility] Vital Signs: All taken on the encounter date This section contains inpatient and outpatient Vital Signs collected on the date of the Encounter. Date/Time Temperature Pulse Blood Pressure Respiratory Rate SP02 Pain Height Weight Body Mass Index Source May 02, 2025 02:44 PM 98 78 128/78 [facility] Social History: Smoking Status (Most current) [...] 2025 02:00 PM VA-TOBACCO USE FORMER CIGARETTES [facility] Tobacco Use History This section includes a history of the smoking, or tobacco-related health factors, that were collected on or before the date of the Encounter. The data comes from the [place] facility where the Encounter took place. Date/Time Smoking Status/Tobacco Use Comment [place] moreira Feb 16, 2025 02:00 PM VA-TOBACCO USE FOR CHRISTINE CIGARETTES [facility] Jan 19, 2024 03:00 PM VA-TOBACCO FORMER USER [facility] Jan 19, 2024 03:00 PM VA-TOBACCO QUIT 15 YRS OR MORE [facility] Jan 15, 2023 03:00 PM VA-TOBACCO FORMER USER [facility] Jan 15, 2023 03:00 PM VA-TOBACCO QUIT 15 YRS OR MORE [facility] Aug 18, 2018 11:12 AM QUIT TOBACCO >7 YEARS AGO [facility] April 06, 2018 01:14 PM QUIT TOBACCO >7 YEARS AGO [facility] Oct 20, 2017 12:17 PM QUIT TOBACCO >7 YEARS AGO [facility] Nov 14, 2009 11:45 AM QUIT TOBACCO >7 YEARS AGO [facility] Dec 01, 2008 10:15 AM QUIT TOBACCO >7 YEARS AGO [facility] Feb 08, 2008 10:47 AM QUIT TOBACCO >7 YEARS AGO [facility] Jan 26, 2007 10:41 AM QUIT TOBACCO >7 YEARS AGO [facility] Jul 29, 2006 11:06 AM CURRENT NON-TOBACC O USER-HX OF USE [facility] Jul 31, 2005 10:14 AM CURRENT NON-TOBACC O USER-HX OF USE [facility] Dec 16, 2004 04:12 PM CURRENT NON-TOBACC O USER-HX OF USE Stopped 1982 [facility] Sep 10, 2004 09:51 AM CURRENT NON-TOBACC O USER-HX OF USE [facility] Feb 19, 2004 01:46 PM CURRENT NON-TOBACC O USER-HX OF USE Stopped in 1981 after smoking for 20 years Smoked 1 ppd SOme cigars and pipe [facility] Advance Directives: All historical and current Section Date Range: From patient's date of to the date document was created. This section includes ALL of a patient's completed or amended [place] Advance and Rescinded Directives. The entries below indicate that a directive exists for the patient, but an actual copy is not included with this document. The data comes from all [place] facilities. Date Advance Directives Provider Source Nov 21, 2011 ADVANCE DIRECTIVE DISCUSSION [facility] Encounter Notes: All associated encounter notes This section contains the clinical notes associated to the Encounter. Date/Time Encounter Note(s) Provider Source May 02, 2025 02:43 PM NURSING PROGRESS N OTE: LOCAL TITLE: NURSING NOTE PB STANDARD TITLE: NURSING PROGRESS NOTE DATE OF NOTE: MAY 02, 2025@14:43 ENTRY DATE: MAY 02, 2025@14:44 AUTHOR: JENNI FAJARDO EXP COSIGNER: URGENCY: STATUS: COMPLETED Blood Pressure: 128/78 Pulse: 78 Temperature: 98 F (36.7 C) Pulse Oximetry: 98% Active Outpatient Medications: Active Outpatient Medications (including Supplies): Active Outpatient Medications Status 1) DEPEND UNDERWEAR,MAXIMUM,WMN MEDIUM USE 1 DIAPER TO AFFECTED ACTIVE AREA(S) TWICE DAILY NEEDED Indication: FOR INCONTINENCE 2) NUTRITION SUPL ENSURE PLUS/NITESH LIQUID TAKE 1 CANFUL BY ACTIVE MOUTH ONCE [...] CAP/TAB BY MOUTH ACTIVE 19 Total Medications CC: [place] presents to clinic stating he has some bruising that he wanted checked out. Subjective: reports he got jumped on by one of his dogs but later noticed some bruising. States he does not recall bruising before and wanted reassurance that he does not have to be concerned. O/A: [place] is alert and oriented. 2 small bruises noted on left forearm. Both the size of a grape. No palpable hematoma, redness, or heat. Golf ball sized bruise right chest wall just below breast. No redness, swelling, or heat. All bruises are light in color and are improving. Denies pain. Plan/ Intervention: Reviewed blood work from January with no signs of anemia or low platelets. Discussed with that if bruising noted without trauma he should follow up with provider. [place] reassured. Discussed all with SUPERIOR COURT CLERK and she agrees. RTC: As scheduled and as needed. Per [facility] Directive 1605.06, wristband documentation: Patient wristband was removed and destroyed by (staff name) Jenni Fajardo RN and placed in the designated Granicused-It bin. /es/ JENNI NAVAS, [facility] Signed: 05/02/2025 14:51 Receipt Acknowledged By: 05/02/2025 16:02 /es/ MAGGIE Rod, MSN, [facility] [place] [facility]
--- OUTSIDE RECORDS SUMMARY | 2025-05-18 13:29 | XMS_ITS | Encounter Summary ---
Author Name [facility] Address [address] [place] [address] Care Team Providers Care Power Brake Operator Name Role Phone JUSTIN WEAVER Primary Care [...] PART A Jul 24, 2017 PART A [id number] BERTHA SAMPSON PATIENT MEDICARE (WNR) MEDICARE (M) PART B Jul 24, 2017 PART B [id number] BERTHA SAMPSON CHARLatoya PATIENT MEDICARE (WNR) MEDICARE (M) PART A Jul 24, 2017 PART A [id number] BERTHA SAMPSON PATIENT MEDICARE (WNR) MEDICARE (M) PART B Jul 24, 2017 PART B [id number] BERTHA SAMPSON PATIENT -FO R-LIFE [facility] FOR LIFE WNR Jul 24, 2017 FOR LIFE [id number] [phone] BERTHA SAMPSON PATIENT Selected Encounter This section includes the information on record at [place] for the Encounter. Date/Time Encounter Type Encounter Description Reason Pro vider Source May 18, 2025 06:29 PM Outpatient Encounter TELEPHONE TRIAGE IHE Encounter Template Text not used by [place] Plan of Treatment: Future Appointments (+ 6 months) and Future Tests (+/- 45 days) The Plan of Treatment section includes future care activities for the patient from all [place] treatmentfacilities. This section includes future appointments and future orders which are active, pending or scheduled. Future Appointments This section includes appointments that were scheduled to occur 6 months from the date of the Encounter, up to a maximum of 20 appointments. The data comes from all [place] treatment facilities. Appointment Date/Time Appointment Type Appointme nt Facility Name Jun 08, 2025 01:00 PM AMBULATORY - MEDICINE [facility] Jun 08, 2025 02:40 PM AMBULATORY - MEDICINE [facility] Jun 26, 2025 03:30 PM AMBULATORY - NONE [facility] Jul 13, 2025 02:40 PM AMBULATORY - MEDICINE [facility] Jul 31, 2025 01:15 PM AMBULATORY - MEDICINE [facility] [facility] Aug 10, 2025 02:00 PM AMBULATORY - MEDICINE [facility] Sep 07, 2025 02:00 PM AMBULATORY - MEDICINE [facility] Oct 05, 2025 02:40 PM AMBULATORY - MEDICINE [facility] Nov 02, 2025 02:40 PM AMBULATORY - MEDICINE [facility] Advance Directives: All historical and current Section Date Range: From patient's date of to the date document was created. This section includes ALL of a patient's completed or amended [place] Advance and Rescinded Directives. The entries below indicate that a directive exists for the patient, but an actual copy is not included with this document. The data comes from all [facility]. Date Advance Directives Provider Source Nov 21, 2011 ADVANCE DIRECTIVE DISCUSSION [facility] Encounter Notes: All associated encounter notes This section contains the clinical notes associated to the Encounter. Date/Time Encounter Note(s) Provider Source May 18, 2025 06:29 PM RN PROGRESS NOTE: LOCAL TITLE: CCC: CLINICAL TRIAGE STANDARD TITLE: RN PROGRESS NOTE DATE OF NOTE: MAY 18, 2025@18:29:37 ENTRY DATE: MAY 18, 2025@18:29:37 AUTHOR: MERLIN KIM COSIGNER: URGENCY: STATUS: COMPLETED Caller Verification Current Location: [address] [place] [id number] Call Back Number: [phone] Caller/Recipient Relation to Patient: Other If Other Describe Relation to Patient: Caller Name: Caren Emergency Contact: CAREN SAMPSON Triage Summary Conducted triage/discussed symptoms Pain Score: 7 (Moderate to Severe Pain) Utilized the Triage Tool: Yes Chief Complaint: Animal Bite Nurse's Recommendation / WHEN: Now Nurse's Recommendation / WHERE: ED Other Patient Disposition Patient/Caregiver agrees to plan of care: Yes Patient is Urgent or Emergent Nursing Plan and Disposition Referred patient to higher level of care Instructed to go to Emergency Room (ER) Advised of Financial Disclaimer: Patient advised that recommendation for care provided during the call does not constitute an approval or authorization for payment by the [place] or its staff. Patient advised to report a community ED visit to the [facility] Office of Community Care at within 72 hours. Other course(s) of action Generated msg to PACT/Provider Nurse Summary Nurse Summary: The was bitten today trying to break up a dog fight. He was bitten on his left wrist and thumb on his right hand. No muscle or bone is visible but the lacerations are pretty wide with one being 2 inches in length. The is having pain rated a 7/10. I triaged the and recommended that he be evaluated at an ER now for his symptoms. The is a 100 miles from the nearest [place] with an ER so he will go to [facility] ER at [address] [facility] [place] [address] to be evaluated now. I reminded the that the [facility] may or may not pay for non VA care and that he should call [facility] within 72 hours of being treated at any non VA medical facility. Clinical Contact Center Codes Clinic/Location: V15 PB PHONE CCC RN Decision Support System Output: Triage Complete Triage Date: 05/18/2025, 06:15 PM Triage Note: Decision Support Tool Used: ClearTriage Protocol Used: Animal Bite Protocol-Based Disposition: Go to ED Now Positive Triage Question: * [1] Any break in skin from BITE (e.g., cut, puncture or scratch) AND [2] PET animal (e.g., dog, cat, or ferret) at risk for RABIES (e.g., sick, stray, unprovoked bite, developing country) Care Advice Discussed: * Clean the Wound * Cover the Wound Negative Triage Questions: * [1] Major bleeding (e.g., actively dripping or spurting) AND [2] can't be stopped * Sounds like a life-threatening emergency to the triager * [1] Any break in skin from BITE (e.g., cut, puncture or scratch) AND [2] WILD animal at risk for RABIES (e.g., bat, raccoon, montelongo, skunk, coyote, other carnivores; see Background for list.) IMPORTANT: This note was created by [facility] Clinical Contact Center staff. Please do not alert the staff member by adding them as a signer for future communications. Alerts are not monitored by this user. /maddy/ MERLIN KIM RN Signed: 05/18/2025 18:29 Receipt Acknowledged By: * AWAITING SIGNATURE * JUSTIN WEAVER III * AWAITING SIGNATURE * ANTON YAO ERIC T [place] [facility]
--- OUTSIDE RECORDS SUMMARY | 2025-05-18 18:27 | XMS_ITS | Continuity of Care Document ---
Author Name [facility] Organization [facility] Care Team Providers Care Head Start Coordinator Name Role Phone [facility] Unavailable Unavailable Problems Combined list of problems from Department of Defense and Veterans Affairs facilities. It does not include entries that were removed or entered in error. Problem Status Onset Date Problem Type Date of Resolution Comments Source CAD - Coronary artery disease (SNOMED CT 71814979) Active Condition [place] [facility] Carpal tunnel syndrome Active Condition Sep 27, 2021 Entered By: ALESSANDRA MONTGOMERY Comment: Mod-severe by NCS. Also bilat Ulnar neuropathy [place] [facility] Chronic gastritis Active Condition Ap r 2022 Entered By: ALESSANDRA MONTGOMERY Comment: By EGD 01/2023. [place] [facility] HLD - Hyperlipidemia (SNOMED CT 82365959) Active Condition [place] [facility] Idiopathic Raynaud's phenomenon Active Condition [place] [facility] LBBB - Left bundle branch block Active Condition Aug 21, 2023 Entered By: ALESSANDRA MONTGOMERY Comment: New from previous ekg, 07/2023. 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 01/2023. Treated with argoon plasma and 20 Watt cautery. [place] [facility] Benign paroxysmal positional vertigo (SNOMED CT 579403640) Inactive Condition 11/04/2023 [place] [facility] Breast Mass (ICD-9-CM 611.72) Inactive Condition 11/04/2023 [place] [facility] Chest Pain Inactive Condition 11/04/2023 Mar 04, 2007 Entered By: ALPHONSE BARR Comment: 4/12/07: [facility]. NL CORS. RIGHT DOMINANT. LVEF 60%. [place] [facility] Contusion of finger (ICD-9-CM 923.3) Inactive Condition 11/04/2023 [place] [facility] Laboratory Procedures (ICD-9-CM V72.6) Inactive Condition 10/12/2019 [facility] Leg Pain Inactive Condition 11/04/2023 [place] [facility] Routine General Medical Examination at a Health Care Facility * (ICD-9-CM V70.0) Inactive Condition 10/12/2019 [facility] Sciatica Inactive Condition 11/04/2023 [place] [facility] Diagnosis: ICD-10-CM R21 Rash and other nonspecific skin eruption Active Diagnosis [facility] Diagnosis: ICD-10-CM M54.50 Low back pain, unspecified Active Diagnosis [facility] Diagnosis: ICD-10-CM M99.01 Segmental and somatic dysfunction of cervical region Active Diagnosis [facility] Diagnosis: ICD-10-CM J18.9 Pneumonia, unspecified organism Active Diagnosis [facility] Diagnosis: ICD-10-CM Z00.01 Encounter for general adult medical exam w abnormal findings Active Diagnosis [facility] [place] [facility] Diagnosis: ICD-10-CM M25.511 Pain in right shoulder Active Diagnosis [facility] Diagnosis: ICD-10-CM M54.2 Cervicalgia Active Diagnosis [facility] Diagnosis: ICD-10-CM Z46.1 Encounter for fitting and adjustment of hearing aid Active Diagnosis [place] [facility] Diagnosis: ICD-10-CM M25.551 Pain in right hip Active Diagnosis [facility] [place] [facility] Diagnosis: ICD-10-CM E78.5 Hyperlipidemia, unspecified Active Diagnosis [facility] Diagnosis: ICD-10-CM H90.3 Sensorineural hearing loss, bilateral Active Diagnosis [place] [facility] Diagnosis: ICD-10-CM Z23 Encounter for immunization Active Diagnosis [facility] Diagnosis: ICD-10-CM Z29.11 Enctr for prphylc immther for resp syncytial virus (RSV) Active Diagnosis [facility] Diagnosis: ICD-10-CM H61.23 Impacted cerumen, bilateral Active Diagnosis [facility] Diagnosis: ICD-10-CM L60.9 Nail disorder, unspecified Active Diagnosis [facility] Diagnosis: ICD-10-CM L60.3 Nail dystrophy Active Diagnosis [facility] Diagnosis: ICD-10-CM 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 Medication Details Route Status Patient Instructions Prescription Expires Prescription Number Last Dispense Date Ordering Provider Order Date Order Qty Source ASPIRIN 81MG TAB,EC TAKE ONE TABLET BY MOUTH ONCE A DAY ORAL ACTIVE BENJAMIN MONTGOMERY 2022 [facility] BIOTIN 5MG CAP TAKE 2 CAPSULES BY MOUTH ONCE A DAY ORAL ACTIVE ANA ROSA FIGUEROA ISTEL G 2024 [facility] CHOLECALCIF DAVE 50MCG (2,000UNIT) TAB TAKE ONE TABLET BY MOUTH ONCE A DAY ORAL ACTIVE BENJAMIN MONTGOMERY 2021 [facility] CLOTRIMAZOL E 1% CREAM,TOP APPLY LIGHTLY TO AFFECTED AREA(S) TWICE A DAY TOPICA L ACTIVE BENJAMIN MONTGOMERY 2017 [facility] CYANOCOBALA MIN 1000MCG TAB TAKE ONE TABLET BY MOUTH ONCE A DAY ORAL ACTIVE BENJAMIN MONTGOMERY 2022 [facility] ENSURE PLUS LIQUID CHOCOLATE TAKE 1 CANFUL BY MOUTH ONCE A DAY FOR NUTRITIO N SUPPLEME NTATION ORAL ACTIVE 04/25/2026 [id number] MELA HUANG ECCA E 2024 48 [place] [facility] ENSURE PLUS LIQUID CHOCOLATE TAKE 1 CANFUL BY MOUTH ONCE A DAY FOR NUTRITIO N SUPPLEME NTATION ORAL 01/05/2025 [id number] MELA HUANG ECCA E 2023 24 [place] [facility] ENSURE PLUS LIQUID VANILLA TAKE 1 CANFUL BY MOUTH ONCE A DAY FOR NUTRITIO N SUPPLEME NTATION ORAL DISCONT INUED (EDIT) 02/17/2026 [id number] ANA ROSA FIGUEROA CINDYElda Alexander 2024 48 [place] [facility] FISH OIL 1000MG (500MG DHA/EPA) CAP,ORAL TAKE 1 CAPSULE BY MOUTH TWICE A DAY ORAL ACTIVE BENJAMIN MONTGOMERY 2023 [facility] FISH OIL 1000MG (500MG DHA/EPA) CAP,ORAL TAKE 1 CAPSULE BY MOUTH TWICE A DAY ORAL ACTIVE ANA ROSA FIGUEROA CINDYElda Alexander 2024 [facility] GRAPE SEED EXTRACT CAP/TAB TAKE 1 CAP/TAB BY MOUTH ORAL ACTIVE ANA ROSA FIGUEROAMARElda Alexander 2024 [facility] ISOSORBIDE MONONITRATE 30MG TAB,SA TAKE ONE TABLET BY MOUTH ONCE A DAY ORAL ACTIVE BENJAMIN MONTGOMERY 2022 [facility] MELATONIN 1MG CAP/TAB TAKE 1 CAP/TAB BY MOUTH AT BEDTIME ORAL ACTIVE ANA ROSA FIGUEROA 2024 [facility] MILK THISTLE CAP/TAB TAKE BY MOUTH ORAL ACTIVE ANA ROSA FIGUEROA CINDYElda Alexander 2024 [facility] MULTIVITAMI N/MINERALS ANTIOXIDANT CAP/TAB TAKE 1 CAP/TAB BY MOUTH ONCE A DAY ORAL ACTIVE ANA ROSA FIGUEROA CINDYElda Alexander 2024 [facility] MULTIVITAMI NS CAP/TAB TAKE ONE TABLET BY MOUTH ONCE A DAY ORAL ACTIVE ANA ROSA FIGUEROA 2024 [place] [facility] NIFEDIPINE (EQV-CC) 30MG TAB,SA TAKE ONE TABLET BY MOUTH ONCE A DAY ORAL ACTIVE BENJAMIN MONTGOMERY 2022 [place] [facility] NITROGLYCER IN 0.4MG TAB,SUBLING UAL DISSOLVE ONE TABLET UNDER THE TONGUE ONE-TIME NEEDED SUBLIN GUAL BENJAMIN PEÑA 2020 [facility] [facility] SIMVASTATIN 40MG TAB TAKE ONE-HALF TABLET BY MOUTH EVERY EVENING ORAL BENJAMIN PEÑA 2022 [facility] [facility] TURMERIC CAP/TAB TAKE BY MOUTH ORAL ACTIVE ANA ROSA FIGUEROA 2024 [facility] Immunizations Combined list of available immunizations from the Department of Defense and Veterans Affairs facilities. Immunization Series Date Given Administered By Site Reaction Lot Number CVX Code Drug Bank Guard Status Comments Source INFLUENZA, HIGH-DOSE, QUADRIVALENT, PF 2023 197 complet ed HISTORICA L INFORMATI ON - FROM OTHER PROVIDER, Mfr: SANOFI PASTEUR [facility] RSV, BIVALENT, PROTEIN SUBUNIT RSVPREF, DILUENT RECONSTITUTED , 0.5 ML, PF 2023 NATHALIA YAO RIGHT DELTO ID [id number] 305 complet ed [facility] COVID-19 (PFIZER), MRNA, LNP-S, PF, FER-SUCROSE, 30 MCG/0.3 ML (AGES 12+ YEARS) 1 2023 309 complet ed HISTORICA L INFORMATI ON - FROM PATIENT'S WRITTEN RECORD, Lot#: [id number] [facility] INFLUENZA, UNSPECIFIED FORMULATION 2022 88 complet ed HISTORICA L INFORMATI ON - FROM PATIENT'S RECALL, [facility] ZOSTER RECOMBINANT 2 2022 187 complet ed HISTORICA L INFORMATI ON - FROM PATIENT'S WRITTEN RECORD, Lot#: [id number] [facility] COVID-19 (MODERNA), MRNA, LNP-S, BIVALENT BOOSTER, PF, 50 MCG/0.5 ML OR 25MCG/0.25 ML DOSE 1 2021 FINN DOOLEY RIGHT DELTO ID [id number] 229 complet ed [facility] COVID-19 (MODERNA), MRNA, LNP-S, PF, 100 MCG/0.5ML DOSE OR 50 MCG/0.25ML DOSE 3 2021 207 complet ed MOD; [id number]; 2 [facility] COVID-19 (MODERNA), MRNA, LNP-S, PF, 100 MCG/0.5 ML DOSE 2 2020 207 complet ed MOD; [id number]; 1 [facility] COVID-19 (MODERNA), MRNA, LNP-S, PF, 100 MCG/0.5 ML DOSE 1 2020 207 complet ed MOD; [id number]; 1 [facility] INFLUENZA, INJECTABLE, QUADRIVALENT, PRESERVATIVE FREE 2019 150 complet ed [facility] PNEUMOCOCCAL POLYSACCHARID E PPV23 2018 33 complet ed [facility] INFLUENZA, UNSPECIFIED FORMULATION 2017 88 complet ed documenta tion sent to scanning [facility] ZOSTER RECOMBINANT 1 2017 187 complet ed [facility] INFLUENZA, SEASONAL, INJECTABLE, PRESERVATIVE FREE 2016 140 complet ed Left Deltoid [facility] PNEUMOCOCCAL CONJUGATE PCV 13 2016 133 complet ed [facility] TDAP 2015 115 complet ed HISTORICA L INFORMATI ON - FROM PATIENT'S WRITTEN RECORD, Lot#: [id number] [facility] INFLUENZA, SEASONAL, INJECTABLE, PRESERVATIVE FREE 2015 140 complet ed [facility] INFLUENZA, UNSPECIFIED FORMULATION 2014 88 complet ed [facility] TDAP 2014 115 complet ed [facility] INFLUENZA, UNSPECIFIED FORMULATION 2013 88 complet ed [facility] INFLUENZA, UNSPECIFIED FORMULATION 2012 88 complet ed [facility] ZOSTER LIVE 2012 121 complet ed HISTORICA L INFORMATI ON - FROM PATIENT'S WRITTEN RECORD, provided copy of immunizat ion list from [facility]. Copy sent to scanning [facility] INFLUENZA, UNSPECIFIED FORMULATION 2011 88 complet ed [facility] INFLUENZA, UNSPECIFIED FORMULATION 2010 88 complet ed [facility] INFLUENZA, UNSPECIFIED FORMULATION 2009 88 complet ed [facility] INFLUENZA, UNSPECIFIED FORMULATION 2008 88 complet ed [facility] INFLUENZA, UNSPECIFIED FORMULATION 2007 88 complet ed [facility] INFLUENZA (HISTORICAL) 2007 88 complet ed [facility] INFLUENZA, UNSPECIFIED FORMULATION 2005 88 complet ed [facility] PNEUMOCOCCAL, UNSPECIFIED FORMULATION 2004 109 complet ed [employer], Left Deltoid, Lot #:[id number], Nov 05. [facility] INFLUENZA (HISTORICAL) 2002 88 complet ed [facility] TD(ADULT) UNSPECIFIED FORMULATION 2000 139 complet ed HISTORICA L INFORMATI ON - FROM PATIENT'S WRITTEN RECORD, provided list of immunizat ions from [facility]. [facility] FLU,3 YRS (HISTORICAL) 2000 88 complet ed [facility] Results Combined list of recent chemistry, hematology and other laboratory results from Department of Defense and Veterans Affairs, ranging from 15 months to all on record, depending upon the facility. Order Name Results Value Reference Range Date Interpretation Specimen Comments Source B12 COBALAMIN (VITAMIN B12) [MASS/VOLUM E] IN SERUM OR PLASMA 635 pg/mL 213 - 816 02/16 Specimen Type: SERUM No comment entered. Ordering Provider: ANA ROSA FIGUEROA Report Released Date/Time : Feb 16, 2025 02:13 PM Reporting Lab: [place] [facility] [address] [place] [address] Performin g Lab: [place] [facility] [address] [place] [address] [facility] FOLATE (PB) FOLATE [MASS/VOLUM E] IN SERUM OR PLASMA 14.9 ng/mL 7 - 20 02/16 Specimen Type: SERUM No comment entered. Ordering Provider: ANA ROSA FIGUEROA Report Released Date/Time : Feb 16, 2025 02:13 PM Reporting Lab: [place] [facility] [address] [place] [address] Performin g Lab: [place] [facility] [address] [place] [address] [facility] HGA1C HEMOGLOBIN A1C/HEMOGLO BIN.TOTAL IN BLOOD 5.5 4.0 - 6.0 02/16 Specimen Type: BLOOD No comment entered. Ordering Provider: ANA ROSA FIGUEROA Report Released Date/Time : Feb 16, 2025 02:13 PM Reporting Lab: [place] [facility] [address] [place] [address] Performin g Lab: [place] [facility] [address] [place] [address] [facility] VITAMIN D, 25-HYDROXY 25-HYDROXYV ITAMIN D3 [MASS/VOLUM E] IN SERUM OR PLASMA 61.1 ng/mL 30 - 96 02/16 Specimen Type: SERUM No comment entered. Ordering Provider: ANA ROSA FIGUEROA Report Released Date/Time : Feb 16, 2025 02:13 PM Reporting Lab: [place] [facility] [address] [place] [address] Performin g Lab: [place] [facility] [address] [place] [address] [facility] TSH (MA-PB) THYROTROPIN [UNITS/VOLU ME] IN SERUM OR PLASMA 4.322 u[IU]/mL 0.47 - 5 02/16 Specimen Type: SERUM No comment entered. Ordering Provider: ANA ROSA FIGUEROA Report Released Date/Time : Feb 16, 2025 02:13 PM Reporting Lab: [place] [facility] [address] [place] [address] Performin g Lab: [place] [facility] [address] [place] [address] [facility] CHOLESTERO L PANEL (PB) CHOLESTEROL [MASS/VOLUM E] IN SERUM OR PLASMA 148 mg/dL 0 - 200 02/16 Specimen Type: PLASMA No comment entered. Ordering Provider: ANA ROSA FIGUEROA Report Released Date/Time : Feb 16, 2025 02:13 PM Reporting Lab: [place] [facility] [address] [place] [address] Performin g Lab: [place] [facility] [address] [place] [address] [facility] CHOLESTERO L PANEL (PB) TRIGLYCERID E [MASS/VOLUM E] IN SERUM OR PLASMA 40 mg/dL 0 - 150 02/16 Specimen Type: PLASMA No comment entered. Ordering Provider: ANA ROSA FIGUEROA Report Released Date/Time : Feb 16, 2025 02:13 PM Reporting Lab: [place] [facility] [address] [place] [address] Performin g Lab: [place] [facility] [address] [place] [address] [facility] CHOLESTERO L PANEL (PB) CHOLESTEROL IN LDL [MASS/VOLUM E] IN SERUM OR PLASMA BY CALCULATION 87.8 mg/dL 02/16 Specimen Type: PLASMA No comment entered. Ordering Provider: ANA ROSA FIGUEROA Report Released Date/Time : Feb 16, 2025 02:13 PM Reporting Lab: [place] [facility] [address] [place] [address] Performin g Lab: [place] [facility] [address] [place] [address] [facility] CHOLESTERO L PANEL (PB) CHOLESTEROL IN HDL [MASS/VOLUM E] IN SERUM OR PLASMA 52.2 mg/dL 40 02/16 H Specimen Type: PLASMA No comment entered. Ordering Provider: ANA ROSA FIGUEROA Report Released Date/Time : Feb 16, 2025 02:13 PM Reporting Lab: [place] [facility] [address] [place] [address] Performin g Lab: [place] [facility] [address] [place] [address] [facility] CHOLESTERO L PANEL (PB) CHOLESTEROL IN HDL/CHOLEST DAVE.TOTAL [MASS RATIO] IN SERUM OR PLASMA 35.3 25 02/16 Specimen Type: PLASMA No comment entered. Ordering Provider: ANA ROSA FIGUEROA Report Released Date/Time : Feb 16, 2025 02:13 PM Reporting Lab: [place] [facility] [address] [place] [address] Performin g Lab: [place] [facility] [address] [place] [address] [facility] COMPREHENS JACLYN METABOLIC PANEL CREATININE [MASS/VOLUM E] IN SERUM OR PLASMA 0.88 mg/dL 0.7 - 1.3 02/16 Specimen Type: PLASMA No comment entered. Ordering Provider: ANA ROSA FIGUEROA Report Released Date/Time : Feb 16, 2025 02:13 PM Reporting Lab: [place] [facility] [address] [place] [address] Performin g Lab: [place] [facility] [address] [place] [address] [facility] COMPREHENS JACLYN METABOLIC PANEL UREA NITROGEN [MASS/VOLUM E] IN SERUM OR PLASMA 14 mg/dL 9 - 02/16 Specimen Type: PLASMA No comment entered. Ordering Provider: ANA ROSA FIGUEROA Report Released Date/Time : Feb 16, 2025 02:13 PM Reporting Lab: [place] [facility] [address] [place] [address] Performin g Lab: [place] [facility] [address] [place] [address] [facility] COMPREHENS JACLYN METABOLIC PANEL GLUCOSE [MASS/VOLUM E] IN SERUM OR PLASMA 91 mg/dL 72 - 99 02/16 Specimen Type: PLASMA No comment entered. Ordering Provider: ANA ROSA FIGUEROA Report Released Date/Time : Feb 16, 2025 02:13 PM Reporting Lab: [place] [facility] [address] [place] [address] Performin g Lab: [place] [facility] [address] [place] [address] [facility] COMPREHENS JACLYN METABOLIC PANEL SODIUM [MOLES/VOLU ME] IN SERUM OR PLASMA 143 meq/L 136 - 145 02/16 Specimen Type: PLASMA No comment entered. Ordering Provider: ANA ROSA FIGUEROA Report Released Date/Time : Feb 16, 2025 02:13 PM Reporting Lab: [place] [facility] [address] [place] [address] Performin g Lab: [place] [facility] [address] [place] [address] [facility] COMPREHENS JACLYN METABOLIC PANEL POTASSIUM [MOLES/VOLU ME] IN SERUM OR PLASMA 4.1 meq/L 3.5 - 5 02/16 Specimen Type: PLASMA No comment entered. Ordering Provider: ANA ROSA FIGUEROA Report Released Date/Time : Feb 16, 2025 02:13 PM Reporting Lab: [place] [facility] [address] [place] [address] Performin g Lab: [place] [facility] [address] [place] [address] [facility] COMPREHENS JACLYN METABOLIC PANEL CHLORIDE [MOLES/VOLU ME] IN SERUM OR PLASMA 108 meq/L 98 - 107 02/16 H Specimen Type: PLASMA No comment entered. Ordering Provider: ANA ROSA FIGUEROA Report Released Date/Time : Feb 16, 2025 02:13 PM Reporting Lab: [place] [facility] [address] [place] [address] Performin g Lab: [place] [facility] [address] [place] [address] [facility] COMPREHENS JACLYN METABOLIC PANEL CARBON DIOXIDE, TOTAL [MOLES/VOLU ME] IN SERUM OR PLASMA 27 meq/L 22 - 31 02/16 Specimen Type: PLASMA No comment entered. Ordering Provider: ANA ROSA FIGUEROA Report Released Date/Time : Feb 16, 2025 02:13 PM Reporting Lab: [place] [facility] [address] [place] [address] Performin g Lab: [place] [facility] [address] [place] [address] [facility] COMPREHENS JACLYN METABOLIC PANEL CALCIUM [MASS/VOLUM E] IN SERUM OR PLASMA 9.4 mg/dL 8.4 - 10.4 02/16 Specimen Type: PLASMA No comment entered. Ordering Provider: ANA ROSA FIGUEROA Report Released Date/Time : Feb 16, 2025 02:13 PM Reporting Lab: [place] [facility] [address] [place] [address] Performin g Lab: [place] [facility] [address] [place] [address] [facility] COMPREHENS JACLYN METABOLIC PANEL PROTEIN [MASS/VOLUM E] IN SERUM OR PLASMA 6.6 g/dL 6 - 8.6 02/16 Specimen Type: PLASMA No comment entered. Ordering Provider: ANA ROSA FIGUEROA Report Released Date/Time : Feb 16, 2025 02:13 PM Reporting Lab: [place] [facility] [address] [place] [address] Performin g Lab: [place] [facility] [address] [place] [address] [facility] COMPREHENS JACLYN METABOLIC PANEL ALBUMIN [MASS/VOLUM E] IN SERUM OR PLASMA 4.4 g/dL 3.4 - 5 02/16 Specimen Type: PLASMA No comment entered. Ordering Provider: ANA ROSA FIGUEROA Report Released Date/Time : Feb 16, 2025 02:13 PM Reporting Lab: [place] [facility] [address] [place] [address] Performin g Lab: [place] [facility] [address] [place] [address] [facility] COMPREHENS JACLYN METABOLIC PANEL BILIRUBIN.T OTAL [MASS/VOLUM E] IN SERUM OR PLASMA 0.4 mg/dL 0.2 - 1.2 02/16 Specimen Type: PLASMA No comment entered. Ordering Provider: ANA ROSA FIGUEROA Report Released Date/Time : Feb 16, 2025 02:13 PM Reporting Lab: [place] [facility] [address] [place] [address] Performin g Lab: [place] [facility] [address] [place] [address] [facility] COMPREHENS JACLYN METABOLIC PANEL ALKALINE PHOSPHATASE [ENZYMATIC ACTIVITY/VO LUME] IN SERUM OR PLASMA 50 U/L 40 - 150 02/16 Specimen Type: PLASMA No comment entered. Ordering Provider: ANA ROSA FIGUEROA Report Released Date/Time : Feb 16, 2025 02:13 PM Reporting Lab: [place] [facility] [address] [place] [address] Performin g Lab: [place] [facility] [address] [place] [address] [facility] COMPREHENS JACLYN METABOLIC PANEL ASPARTATE AMINOTRANSF ERASE [ENZYMATIC ACTIVITY/VO LUME] IN SERUM OR PLASMA 36 U/L 5 - 34 02/16 H Specimen Type: PLASMA No comment entered. Ordering Provider: ANA ROSA FIGUEROA Report Released Date/Time : Feb 16, 2025 02:13 PM Reporting Lab: [place] [facility] [address] [place] [address] Performin g Lab: [place] [facility] [facility] [address] [place] [address] [facility] COMPREHENS JACLYN METABOLIC PANEL ALANINE AMINOTRANSF ERASE [ENZYMATIC ACTIVITY/VO LUME] IN SERUM OR PLASMA 25 U/L 8 - 40 02/16 Specimen Type: PLASMA No comment entered. Ordering Provider: ANA ROSA FIGUEROA Report Released Date/Time : Feb 16, 2025 02:13 PM Reporting Lab: [place] [facility] [address] [place] [address] Performin g Lab: [place] [facility] [address] [place] [address] [facility] COMPREHENS JACLYN METABOLIC PANEL GLOMERULAR FILTRATION RATE/1.73 SQ M.PREDICTED [VOLUME RATE/AREA] IN SERUM, PLASMA OR BLOOD BY CREATININE- BASED FORMULA (CKD-EPI 2020) 91 02/16 Specimen Type: PLASMA No comment entered. Ordering Provider: ANA ROSA FIGUEROA Report Released Date/Time : Feb 16, 2025 02:13 PM Reporting Lab: [place] [facility] [address] [place] [address] Performin g Lab: [place] [facility] [address] [place] [address] [facility] CBC LEUKOCYTES [#/VOLUME] IN BLOOD BY AUTOMATED COUNT 6.0 10*3/uL 3.6 - 11.2 02/16 Specimen Type: BLOOD No comment entered. Ordering Provider: ANA ROSA FIGUEROA Report Released Date/Time : Feb 16, 2025 02:13 PM Reporting Lab: [place] [facility] [address] [place] [address] Performin g Lab: [place] [facility] [address] [place] [address] [facility] CBC ERYTHROCYTE S [#/VOLUME] IN BLOOD BY AUTOMATED COUNT 4.45 10*6/uL 4.10 - 5.70 02/16 Specimen Type: BLOOD No comment entered. Ordering Provider: ANA ROSA FIGUEROA Report Released Date/Time : Feb 16, 2025 02:13 PM Reporting Lab: [place] [facility] [address] [place] [address] Performin g Lab: [place] [facility] [address] [place] [phone] [facility] CBC HEMOGLOBIN [MASS/VOLUM E] IN BLOOD 13.7 g/dL 13.1 - 16.8 02/16 Specimen Type: BLOOD No comment entered. Ordering Provider: ANA ROSA FIGUEROA Report Released Date/Time : Feb 16, 2025 02:13 PM Reporting Lab: [place] [facility] [address] [place] [address] Performin g Lab: [place] [facility] [address] [place] [phone] [facility] CBC HEMATOCRIT [VOLUME FRACTION] OF BLOOD 41.9 38.2 - 48.4 02/16 Specimen Type: BLOOD No comment entered. Ordering Provider: ANA ROSA FIGUEROA Report Released Date/Time : Feb 16, 2025 02:13 PM Reporting Lab: [place] [facility] [address] [place] [address] Performin g Lab: [place] [facility] [address] [place] [phone] [facility] CBC MCV [ENTITIC VOLUME] BY AUTOMATED COUNT 94.2 fL 80.0 - 100.0 02/16 Specimen Type: BLOOD No comment entered. Ordering Provider: ANA ROSA FIGUEROA Report Released Date/Time : Feb 16, 2025 02:13 PM Reporting Lab: [place] [facility] [address] [place] [address] Performin g Lab: [place] [facility] [address] [place] [address] [facility] CBC MCH [ENTITIC MASS] BY AUTOMATED COUNT 30.8 pg 27.0 - 34.0 02/16 Specimen Type: BLOOD No comment entered. Ordering Provider: ANA ROSA FIGUEROA Report Released Date/Time : Feb 16, 2025 02:13 PM Reporting Lab: [place] [facility] [address] [place] [address] Performin g Lab: [place] [facility] [address] [place] [address] [facility] CBC MCHC [MASS/VOLUM E] BY AUTOMATED COUNT 32.7 g/dL 33.0 - 36.0 02/16 L Specimen Type: BLOOD No comment entered. Ordering Provider: ANA ROSA FIGUEROA Report Released Date/Time : Feb 16, 2025 02:13 PM Reporting Lab: [place] [facility] [address] [place] [address] Performin g Lab: [place] [facility] [address] [place] [address] [facility] CBC PLATELETS [#/VOLUME] IN BLOOD BY AUTOMATED COUNT 256 10*3/uL 150 - 400 02/16 Specimen Type: BLOOD No comment entered. Ordering Provider: ANA ROSA FIGUEROA Report Released Date/Time : Feb 16, 2025 02:13 PM Reporting Lab: [place] [facility] [address] [place] [address] Performin g Lab: [place] [facility] [address] [place] [address] [facility] CBC PLATELET MEAN VOLUME [ENTITIC VOLUME] IN BLOOD BY AUTOMATED COUNT 10.6 fL 7.5 - 11.2 02/16 Specimen Type: BLOOD No comment entered. Ordering Provider: ANA ROSA FIGUEROA Report Released Date/Time : Feb 16, 2025 02:13 PM Reporting Lab: [place] [facility] [address] [place] [address] Performin g Lab: [place] [facility] [address] [place] [address] [facility] CBC ERYTHROCYTE DISTRIBUTIO N WIDTH [RATIO] BY AUTOMATED COUNT 12.4 11.8 - 15.1 02/16 Specimen Type: BLOOD No comment entered. Ordering Provider: ANA ROSA FIGUEROA Report Released Date/Time : Feb 16, 2025 02:13 PM Reporting Lab: [place] [facility] [address] [place] [address] Performin g Lab: [place] [facility] [address] [place] [address] [facility] CBC LYMPHOCYTES /100 LEUKOCYTES IN BLOOD BY AUTOMATED COUNT 25.4 02/16 Specimen Type: BLOOD No comment entered. Ordering Provider: ANA ROSA FIGUEROA Report Released Date/Time : Feb 16, 2025 02:13 PM Reporting Lab: [place] [facility] [address] [place] [address] Performin g Lab: [place] [facility] [address] [place] [address] [facility] CBC MONOCYTES/1 00 LEUKOCYTES IN BLOOD BY AUTOMATED COUNT 9.0 02/16 Specimen Type: BLOOD No comment entered. Ordering Provider: ANA ROSA FIGUEROA Report Released Date/Time : Feb 16, 2025 02:13 PM Reporting Lab: [place] [facility] [address] [place] [address] Performin g Lab: [place] [facility] [address] [place] [address] [facility] CBC NEUTROPHILS /100 LEUKOCYTES IN BLOOD BY AUTOMATED COUNT 62.9 02/16 Specimen Type: BLOOD No comment entered. Ordering Provider: ANA ROSA FIGUEROA Report Released Date/Time : Feb 16, 2025 02:13 PM Reporting Lab: [place] [facility] [address] [place] [address] Performin g Lab: [place] [facility] [address] [place] [address] [facility] CBC EOSINOPHILS /100 LEUKOCYTES IN BLOOD BY AUTOMATED COUNT 1.8 02/16 Specimen Type: BLOOD No comment entered. Ordering Provider: ANA ROSA FIGUEROA Report Released Date/Time : Feb 16, 2025 02:13 PM Reporting Lab: [place] [facility] [address] [place] [address] Performin g Lab: [place] [facility] [address] [place] [address] [facility] CBC BASOPHILS/1 00 LEUKOCYTES IN BLOOD BY AUTOMATED COUNT 0.7 02/16 Specimen Type: BLOOD No comment entered. Ordering Provider: ANA ROSA FIGUEROA Report Released Date/Time : Feb 16, 2025 02:13 PM Reporting Lab: [place] [facility] [address] [place] [address] Performin g Lab: [place] [facility] [address] [place] [address] [facility] CBC LYMPHOCYTES [#/VOLUME] IN BLOOD BY AUTOMATED COUNT 1.53 10*3/uL 0.77 - 4.50 02/16 Specimen Type: BLOOD No comment entered. Ordering Provider: ANA ROSA FIGUEROA Report Released Date/Time : Feb 16, 2025 02:13 PM Reporting Lab: [place] [facility] [address] [place] [address] Performin g Lab: [place] [facility] [address] [place] [address] [facility] CBC MONOCYTES [#/VOLUME] IN BLOOD BY AUTOMATED COUNT 0.54 10*3/uL 0.19 - 0.8 02/16 Specimen Type: BLOOD No comment entered. Ordering Provider: ANA ROSA FIGUEROA Report Released Date/Time : Feb 16, 2025 02:13 PM Reporting Lab: [place] [facility] [address] [place] [address] Performin g Lab: [place] [facility] [address] [place] [address] [facility] CBC NEUTROPHILS [#/VOLUME] IN BLOOD BY AUTOMATED COUNT 3.80 10*3/uL 2.10 - 8.00 02/16 Specimen Type: BLOOD No comment entered. Ordering Provider: ANA ROSA FIGUEROA Report Released Date/Time : Feb 16, 2025 02:13 PM Reporting Lab: [place] [facility] [address] [place] [address] Performin g Lab: [place] [facility] [address] [place] [address] [facility] CBC EOSINOPHILS [#/VOLUME] IN BLOOD BY AUTOMATED COUNT 0.11 10*3/uL 0.00 - 0.60 02/16 Specimen Type: BLOOD No comment entered. Ordering Provider: ANA ROSA FIGUEROA Report Released Date/Time : Feb 16, 2025 02:13 PM Reporting Lab: [place] [facility] [address] [place] [phone] Performin g Lab: [place] [facility] [address] [place] [phone] [facility] CBC BASOPHILS [#/VOLUME] IN BLOOD BY AUTOMATED COUNT 0.04 10*3/uL 0.00 - 0.20 02/16 Specimen Type: BLOOD No comment entered. Ordering Provider: Tracie FIGUEROA Report Released Date/Time : Feb 16, 2025 02:13 PM Reporting Lab: [place] [facility] [address] [place] [phone] Performin g Lab: [place] [facility] [address] [place] [phone] [facility] CBC IMMATURE GRANULOCYTE S/100 LEUKOCYTES IN BLOOD BY AUTOMATED COUNT 0.2 02/16 Specimen Type: BLOOD No comment entered. Ordering Provider: ANA ROSA FIGUEROA Report Released Date/Time : Feb 16, 2025 02:13 PM Reporting Lab: [place] [facility] [address] [place] [phone] Performin g Lab: [place] [facility] [address] [place] [phone] [facility] CBC IMMATURE GRANULOCYTE S [#/VOLUME] IN BLOOD BY AUTOMATED COUNT 0.01 10*3/uL 0.00 - 0.05 02/16 Specimen Type: BLOOD No comment entered. Ordering Provider: ANA ROSA FIGUEROA Report Released Date/Time : Feb 16, 2025 02:13 PM Reporting Lab: [place] [facility] [address] [place] [address] Performin g Lab: [place] [facility] [address] [place] [address] [facility] OCCULT BLOOD FIT X1 SCREEN HEMOGLOBIN. GASTROINTES TINAL.LOWER [PRESENCE] IN STOOL BY IMMUNOASSAY Negative 05/04 Specimen Type: FECES No comment entered. Ordering Provider: BENJAMIN MONTGOMERY Report Released Date/Time : April 20, 2024 09:17 AM Reporting Lab: [place] [facility] [address] [place] [address] Performin g Lab: [place] [facility] [address] [place] [address] [facility] IRON IRON [MASS/VOLUM E] IN SERUM OR PLASMA 123 ug/dL 65 - 175 04/08 Specimen Type: PLASMA No comment entered. Ordering Provider: BENJAMIN MONTGOMERY Report Released Date/Time : April 08, 2024 03:56 PM Reporting Lab: [place] [facility] [address] [place] [address] Performin g Lab: [place] [facility] [address] [place] [address] [facility] Vital Signs Combined list of inpatient and outpatient Vital Signs from Department of Defense and Veterans Affairs, ranging from 12 months to all on record, depending upon the facility. Vital Sign Value Date Comments Source SYSTOLIC BLOOD PRESSURE 128 05/02/2025 14:44:00 [facility] DIASTOLIC BLOOD PRESSURE 78 05/02/2025 14:44:00 [facility] TEMPERATURE 98 05/02/2025 14:44:00 [facility] PULSE 78 05/02/2025 14:44:00 [facility] SYSTOLIC BLOOD PRESSURE 133 04/06/2025 13:00:00 [place] [facility] DIASTOLIC BLOOD PRESSURE 74 04/06/2025 13:00:00 [place] [place] [facility] TEMPERATURE 97.8 04/06/2025 13:00:00 [place] [place] [facility] PULSE 77 04/06/2025 13:00:00 [place] [place] SYSTOLIC BLOOD PRESSURE 121 03/09/2025 12:37:00 [place] [place] DIASTOLIC BLOOD PRESSURE 61 03/09/2025 12:37:00 [place] [place] [facility] PULSE OXIMETRY 95 03/09/2025 12:37:00 [place] [facility] WEIGHT 136.5 03/09/2025 12:37:00 [place] [place] BMI 22 kg/m2 03/09/2025 12:37:00 [facility] PAIN 9 03/09/2025 12:37:00 [facility] TEMPERATURE 98.3 03/09/2025 12:37:00 [facility] PULSE 89 03/09/2025 12:37:00 [facility] RESPIRATION 20 03/09/2025 12:37:00 [facility] SYSTOLIC BLOOD PRESSURE 123 02/16/2025 14:31:00 [place] [place] DIASTOLIC BLOOD PRESSURE 78 02/16/2025 14:31:00 [place] [place] PULSE OXIMETRY 97 02/16/2025 14:31:00 [place] [facility] PAIN 7 02/16/2025 14:31:00 [facility] [place] TEMPERATURE 97.8 02/16/2025 14:31:00 [facility] [place] PULSE 72 02/16/2025 14:31:00 [facility] RESPIRATION 18 02/16/2025 14:31:00 [facility] [place] SYSTOLIC BLOOD PRESSURE 151 01/19/2025 13:00:00 [place] [place] DIASTOLIC BLOOD PRESSURE 79 01/19/2025 13:00:00 [facility] [place] TEMPERATURE 98.6 01/19/2025 13:00:00 [facility] [place] PULSE 96 01/19/2025 13:00:00 [facility] [place] Encounters Combined list of: 1) Encounters from Department of Veterans Affairs facilities going backup to the last 18 months, not all VA inpatient encounters are included; 2) Encounters from the Department of Defense facilities going backup to 280 months. Location Location Details Encounter Type Encounter Number Reason For Visit Attending Provider ADM Date DC Date Status Disposition Source [facility] Outpatient Encounter [id number] 12/01 [facility] Outpatient Encounter [id number] 12/10 [facility] [place] [facility] Outpatient Encounter [id number] 12/15 [place] [facility] Outpatient Encounter [id number] 12/22 [facility] Outpatient Encounter [id number] 12/22 [facility] [place] [facility] Outpatient Encounter [id number] 12/24 [place] [facility] [place] [facility] QNHP OL DIG ASSMT&MGMT 5-10 [id number] Diagnos is: ICD-10- CM L84 Corns and callosi ties THIAGO ALEXANDER V [facility] [facility] En[facility] [id number] 12/28 [facility] [place] [facility] Outpatient Encounter [id number] 12/28 [place] [facility] Outpatient Encounter [id number] 12/29 [facility] [place] [facility] Outpatient Encounter [id number] 12/29 [place] [facility] [place] [facility] Out[facility] Encounter [id number] 12/31 [place] [facility] [place] [facility] Encounter [id number] 12/31 [place] [facility] [place] [facility] Out[facility] Encounter [id number] 01/01 [place] [facility] [place] [facility] Outpatient Encounter [id number] IGGY VALERIO DY 01/05 [place] [facility] Outpatient Encounter [id number] 01/08 [facility] OFFICE O/P EST MOD 30 MIN [id number] Diagnos is: ICD-10- CM 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 Kim MONTGOMERY 01/19 [facility] Outpatient Encounter [id number] 01/20 [facility] [place] [facility] Outpatient Encounter [id number] 01/20 [place] [facility] [place] [facility] Outpatient Encounter [id number] 01/20 [place] [facility] Outpatient Encounter [id number] Kim MONTGOMERY 01/20 [facility] [place] [facility] Outpatient Encounter [id number] [place] [facility] Outpatient Encounter [id number] 01/26 [facility] Outpatient Encounter [id number] 01/27 [facility] Outpatient Encounter [id number] 01/31 [facility] Outpatient Encounter [id number] Kim MONTGOMERY 02/08 [facility] Outpatient Encounter [id number] 02/11 [facility] [place] [facility] Outpatient Encounter [id number] 02/16 [place] [facility] [place] [facility] Outpatient Encounter [id number] 02/21 [place] [facility] Outpatient Encounter [id number] KIRAN ISSA A 02/21 [facility] OFF/OP EST MARCH X REQ PHY/QHP [id number] Diagnos is: ICD-10- CM L60.3 Nail dystrop hy SHIVANIARUN ROBLES A 02/24 [facility] OFFICE O/P EST LOW 20 MIN [id number] Diagnos is: ICD-10- CM L60.9 Nail disorde r, unspeci fiKAYLEE Menard 02/24 [facility] ACUPUNCT W/O STIMUL 15 MIN [id number] Diagnos is: ICD-10- CM M54.50 Low back pain, unspeci fied JUANJO SALINAS 02/24 [facility] OFF[place] O/P NEW LOW 30 MIN [id number] Diagnos is: ICD-10- CM M99.01 Segment al and somatic dysfunc tion of cervica l region RUSLAN RESTREPO E 02/24 [place] [facility] [place] [facility] Outpatient Encounter [id number] 03/09 [place] [facility] [place] [facility] Outpatient Encounter [id number] 03/10 [place] [facility] Outpatient Encounter [id number] 03/11 [facility] [place] [facility] Outpatient Encounter [id number] 03/14 [place] [facility] OFF/OP EST MARCH X REQ PHY/QHP [id number] Diagnos is: ICD-10- CM H61.23 maria esther Becerra ANG ELA A 03/17 [facility] ACUPUNCT W/O STIMUL 15 MIN [id number] Diagnos is: ICD-10- CM M25.511 Pain in right shoulde kim JUANJO SALINAS 03/17 [place] [facility] Outpatient Encounter [id number] 03/25 [facility] MTMS BY PHARM ADDL 15 MIN [id number] Diagnos is: ICD-10- CM Z29.11 Enctr for prphylc immther for resp syncyti al virus (RSV) Maria Luisa AMBROSE 03/25 [place] [facility] [place] ADMIN [id number] Diagnos is: ICD-10- CM Z23 Encount er for immuniz atKATHLEEN Hagan RADHA D 03/25 [facility] FEE [id number] Diagnos is: ICD-10- CM H90.3 Sensori neural hearing loss, bilater al ED,ELIOT SAMARIA A 03/25 [facility] [place] [facility] HEARING AID EXAM BOTH EARS [id number] Diagnos is: ICD-10- CM H90.3 Sensori neural hearing loss, bilater al ED,ELIOT SAMARIA A 03/25 [place] [facility] [place] [facility] Outpatient Encounter [id number] 03/29 [place] [facility] Outpatient Encounter [id number] Diagnos is: ICD-10- CM E78.5 Hyperli pidemia , unspeci fied Maria Luisa AMBROSE 03/30 [facility] [place] [facility] Outpatient Encounter [id number] 04/06 [place] [facility] [place] MANJ 3-4 [place] [id number] Diagnos is: ICD-10- CM M99.01 Segment al and somatic dysfunc tion of cervica l region RUSLAN RESTREPO LAS E 04/14 [facility] [place] [facility] Outpatient Encounter [id number] 04/15 [place] [facility] [place] [facility] Outpatient Encounter [id number] 04/19 [place] [facility] Encounter [id number] 04/20 [facility] Outpatient Encounter [id number] Kim MONTGOMERY 04/20 [facility] Outpatient Encounter [id number] 04/20 [facility] Outpatient Encounter [id number] 04/20 [facility] [place] [facility] Outpatient Encounter [id number] 05/02 [place] [facility] [place] [facility] Outpatient Encounter [id number] 05/02 [place] [facility] Outpatient Encounter [id number] 05/03 [facility] [place] [facility] Outpatient Encounter [id number] 05/04 [facility] [facility] FEE [id number] Diagnos is: ICD-10- CM Z46.1 Encount er for fitting and adjustm ent of hearing aid ELIOT WARD 05/05 [facility] [place] [facility] CONFORMITY EVALUATION [id number] Diagnos is: ICD-10- CM Z46.1 Encount er for fitting and adjustm ent of hearing aid ELIOT WARD A 05/05 [place] [facility] CHIROPRACT MANJ 3-4 REGIONS [id number] [id number] Diagnos is: ICD-10- CM M99.01 Segment al and somatic dysfunc tion of cervica l region RUSLAN RESTREPO 05/05 [place] [facility] [place] [facility] ACUPUNCT W/O STIMUL 15 MIN 59304-6.65 [id number] Diagnos is: ICD-10- CM M25.551 Pain in right hip JUANJO SALINAS 05/05 [place] [facility] [place] [facility] Outpatient Encounter [id number] [id number] 05/30 [place] [facility] [place] [facility] Outpatient Encounter [id number] [id number] 05/31 [place] [facility] ACUPUNCT W/O STIMUL 15 MIN [id number] [id number] Diagnos is: ICD-10- CM M54.50 Low back pain, unspeci fied JUANJO SALINAS 06/02 [place] [facility] CHIROPRACT MANJ 3-4 REGIONS 08280-0.65 [id number] Diagnos is: ICD-10- CM M99.01 Segment al and somatic dysfunc tion of cervica l region LAURORUSLAN KYLE E 06/02 [place] [facility] Outpatient Encounter [id number] [id number] 06/09 [facility] [place] [facility] Outpatient Encounter [id number] [id number] 06/14 [place] [facility] Outpatient Encounter [id number] 06/14 [facility] TELEHEALTH FACILITY FEE [id number] [id number] Diagnos is: ICD-10- CM Z46.1 Encount er for fitting and adjustm ent of hearing aid ELIOT WARD 06/16 [facility] [place] [facility] HEARING AID REPAIR/MOD IFYING 99940-8.65 [id number] Diagnos is: ICD-10- CM Z46.1 Encount er for fitting and adjustm ent of hearing aid ELIOT WARD 06/16 [place] [facility] ACUPUNCT W/O STIMUL 15 MIN [id number] [id number] Diagnos is: ICD-10- CM M25.511 Pain in right shoulde kim SERRATOROSITAHUNGE R 06/16 [place] [facility] Outpatient Encounter [id number] [id number] 06/23 [facility] [place] [facility] Outpatient Encounter [id number] [id number] 06/27 [place] [facility] [place] [facility] Outpatient Encounter [id number] [id number] 06/28 [place] [facility] [place] [facility] Outpatient Encounter [id number] [id number] 06/29 [place] [facility] ACUPUNCT W/O STIMUL 15 MIN 20919-9.65 [id number] Diagnos is: ICD-10- CM M25.511 Pain in right shoulde r SEKOUElvaHUNGAudrey Alvarez 07/07 [facility] CHIROPRACT MANJ 3-4 REGIONS [id number] [id number] 331 Diagnos is: ICD-10- CM M99.01 Segment al and somatic dysfunc tion of cervica l region RUSLAN RESTREPO E 07/07 [facility] [place] [facility] Outpatient Encounter [id number] [id number] 07/08 [place] [facility] [place] [facility] Outpatient Encounter [id number] [id number] 07/20 [place] [facility] Outpatient Encounter [id number] [id number] 08/01 [facility] [place] [facility] TELEHEALTH FACILITY FEE [id number] [id number] Diagnos is: ICD-10- CM Z46.1 Encount er for fitting and adjustm ent of hearing aid ELIOT WARD 08/04 [place] [facility] [place] [facility] HEARING AID FITTING/CH ECKING 57341-1.65 [id number] Diagnos is: ICD-10- CM Z46.1 Encount er for fitting and adjustm ent of hearing aid ELIOT WARD 08/04 [place] [facility] ACUPUNCT W/O STIMUL 15 MIN 10500-1.65 [id number] Diagnos is: ICD-10- CM M54.50 Low back pain, unspeci fied KUZAS,JUANJO R 08/04 [place] [facility] CHIROPRACT MANJ 3-4 REGIONS 70040-9.65 [id number] Diagnos is: ICD-10- CM M99.01 Segment al and somatic dysfunc tion of cervica l region RUSLAN RESTREPO E 08/04 [place] [facility] ACUPUNCT W/O STIMUL 15 MIN 74326-4.65 [id number] Diagnos is: ICD-10- CM M54.50 Low back pain, unspeci fied RITA,JUANJO R 08/11 [place] [facility] [place] [facility] Outpatient Encounter [id number] [id number] 08/22 [place] [facility] Outpatient Encounter [id number] [id number] 08/25 [place] [facility] CHIROPRACT MANJ 3-4 REGIONS 56021-2.65 [id number] Diagnos is: ICD-10- CM M99.01 Segment al and somatic dysfunc tion of cervica l region RUSLAN RESTREPO E 08/25 [place] [facility] [place] [facility] ACUPUNCT W/O STIMUL 15 MIN [id number] [id number] Diagnos is: ICD-10- CM M54.50 Low back pain, unspeci fied HUNG SALINASE R 08/25 [facility] [place] [facility] Outpatient Encounter [id number] [id number] 08/30 [place] [facility] Outpatient Encounter [id number] [id number] 09/15 [facility] Outpatient Encounter [id number] [id number] 09/15 [facility] Encounter [id number] [id number] 09/20 [facility] CHIROPRACT MANJ 3-4 REGIONS [id number] [id number] Diagnos is: ICD-10- CM M99.01 Segment al and somatic dysfunc tion of cervica l region RUSLAN RESTREPO 09/29 [facility] ACUPUNCT W/O STIMUL 15 MIN 79167-4.65 [id number] 146 Diagnos is: ICD-10- CM M54.50 Low back pain, unspeci fied ROJELIOJUANJO BECKER 09/29 [facility] [place] [facility] Outpatient Encounter [id number] [id number] 09/29 [place] [facility] [place] [facility] Outpatient Encounter [id number] [id number] 10/24 [place] [facility] [place] [facility] Outpatient Encounter [id number] [id number] 10/27 [place] [facility] ACUPUNCT W/O STIMUL 15 MIN [id number] [id number] Diagnos is: ICD-10- CM M54.50 Low back pain, unspeci JUANJO Quinteros R 10/27 [facility] Encounter [id number] [id number] 11/08 [facility] [place] [facility] Outpatient Encounter [id number] [id number] 11/09 [place] [facility] 15 MIN [id number] [id number] 110 Diagnos is: ICD-10- CM M25.511 Pain in right shouldJUANJO Bruner R 11/10 [facility] Outpatient Encounter [id number] [id number] 11/11 [facility] Outpatient Encounter [id number] [id number] 11/17 [facility] [place] [facility] Outpatient Encounter [id number] [id number] 11/17 [place] [facility] [place] [facility] Outpatient Encounter [id number] [id number] 11/17 [place] [facility] [place] [facility] Outpatient Encounter [id number] [id number] 11/22 [place] [facility] ACUP 1/> WO ESTIM 1ST 15 MIN [id number] [id number] Diagnos is: ICD-10- CM M54.50 Low back pain, unspeci JUANJO Quinteros R 12/01 [facility] CHIROPRACT MANJ 3-4 REGIONS 53817-4.65 [id number] Diagnos is: ICD-10- CM M99.01 Segment al and somatic dysfunc tion of cervica l region RUSLAN RESTREPO 12/01 [facility] Outpatient Encounter [id number] [id number] 12/01 [facility] Outpatient Encounter [id number] [id number] 12/07 [facility] [place] [facility] Outpatient Encounter [id number] [id number] 12/07 [place] [facility] Outpatient Encounter [id number] [id number] 12/15 [facility] ACUP 1/> WO ESTIM 1ST 15 MIN [id number] [id number] Diagnos is: ICD-10- CM M25.511 Pain in right shoulde r JUANJO SALINAS R 12/15 [facility] Encounter [id number] [id number] 12/28 [facility] [place] [facility] Outpatient Encounter [id number] [id number] 12/29 [place] [facility] ACUP 1/> WO ESTIM 1ST 15 MIN [id number] [id number] Diagnos is: ICD-10- CM M25.511 Pain in right shoulde r ROJELIOJUANJO BECKER R 12/29 [facility] [place] [facility] Outpatient Encounter [id number] [id number] 12/29 [place] [facility] [place] [facility] Outpatient Encounter [id number] [id number] 01/03 [place] [facility] Outpatient Encounter [id number] [id number] 01/11 [facility] Outpatient Encounter [id number] [id number] 01/16 [facility] Outpatient Encounter [id number] [id number] 01/18 [facility] [place] [facility] Outpatient Encounter [id number] [id number] 01/18 [place] [facility] Outpatient Encounter [id number] [id number] 01/19 [facility] CHIROPRACT MANJ 3-4 REGIONS [id number] [id number] Diagnos is: ICD-10- CM M54.2 Cervica jose angelia RUSLAN RESTREPO 01/19 [facility] [place] [facility] Outpatient Encounter [id number] [id number] 01/19 [place] [facility]/> WO ESTIM 1ST 15 MIN [id number] [id number] Diagnos is: ICD-10- CM M25.511 Pain in right shoulde r JUANJO SALINAS 01/19 [facility] ACUP 1/> WO ESTIM 1ST 15 MIN [id number] [id number] Diagnos is: ICD-10- CM M25.511 Pain in right shoulde r JUANJO SALINAS 01/26 [facility] Outpatient Encounter [id number] [id number] 02/06 [facility] [place] [facility] Outpatient Encounter [id number] [id number] 02/16 [place] [facility] ACUP 1/> WO ESTIM 1ST 15 MIN [id number] [id number] Diagnos is: ICD-10- CM M25.511 Pain in right shoulde r HUNG SALINASE R 02/16 [facility] CB OFFICE O/P EST MOD 30 MIN [id number] [id number] Diagnos is: ICD-10- CM Z00.01 Encount er for general adult medical exam w abnorma l finding s KAYLEE FIGUEROA G 02/16 [facility] Outpatient Encounter [id number] [id number] 02/16 [facility] Outpatient Encounter [id number] [id number] 02/20 [facility] Outpatient Encounter [id number] [id number] 02/21 [facility] Outpatient Encounter [id number] [id number] 02/22 [facility] [place] [facility] Outpatient Encounter [id number] [id number] 02/22 [place] [facility] [place] [facility] Outpatient Encounter [id number] [id number] 02/22 [place] [facility] Outpatient Encounter [id number] [id number] 02/22 [facility] Outpatient Encounter [id number] [id number] 02/23 [facility] Encounter [id number] [id number] 02/24 [facility] Encounter [id number] [id number] 03/03 [facility] Outpatient Encounter [id number] [id number] 03/03 [facility] [place] [facility] Outpatient Encounter [id number] [id number] 03/08 [place] [facility] [place] [facility] Outpatient Encounter [id number] [id number] 03/08 [place] [facility]/> WO ESTIM 1ST 15 MIN [id number] [id number] Diagnos is: ICD-10- CM M54.50 Low back pain, unspeci fied JUANJO SALINAS 03/09 [facility] Outpatient Encounter [id number] [id number] 03/09 [facility]P EST MOD 30 MIN [id number] [id number] Diagnos is: ICD-10- CM J18.9 Pneumon ia, unspeci fied KAYLEE oMody 03/09 [facility] Outpatient Encounter [id number] [id number] 03/14 [facility] [place] [facility] Outpatient Encounter [id number] [id number] 03/14 [place] [facility] [place] [facility] Outpatient Encounter [id number] [id number] 04/05 [place] [facility] CHIROPRACT MANJ 3-4 REGIONS [id number] [id number] Diagnos is: ICD-10- CM M99.01 Segment al and somatic dysfunc tion of cervica l region RUSLAN RESTREPO 04/06 [facility]/> WO ESTIM 1ST 15 MIN [id number] [id number] Diagnos is: ICD-10- CM M54.50 Low back pain, unspeci fied JUANJO SALINAS 04/06 [facility] [place] [facility] Outpatient Encounter [id number] [id number] 04/13 [place] [facility] [place] [facility] Outpatient Encounter [id number] [id number] 04/13 [place] [facility] Outpatient Encounter [id number] [id number] 04/21 [facility] Outpatient Encounter [id number] [id number] 04/26 [facility] Outpatient Encounter [id number] [id number] 05/02 [facility] OFF/OP EST MARCH X REQ PHY/QHP 65782-2.65 [id number].[id number] 002 Diagnos is: ICD-10- CM R21 Rash and other nonspec ific skin eruptio n CUSTRED,TO RRI J 05/02 [facility] [place] [facility] Outpatient Encounter [id number] [id number] 05/08 [place] [facility] [place] [facility] Outpatient Encounter [id number] [id number] 05/18 [place] [facility] Social History Combined list of available smoking, tobacco, and other social history from Department of Defense and Veterans Affairs facilities. Social History Type Response Date Comment Source Tobacco smoking status GAIS VA-TOBACCO USE FORMER CIGARETTES 02/16/2025 [facility] History of tobacco use VA-TOBACCO NEVER USED OTHER TYPE 02/16/2025 [facility] History of tobacco use VA-TOBACCO FORMER USER 01/19/2024 [facility] History of tobacco use VA-TOBACCO FORMER USER 01/15/2023 [facility] History of tobacco use QUIT TOBACCO >7 YEARS AGO 08/18/2018 [facility] History of tobacco use QUIT TOBACCO >7 YEARS AGO 04/06/2018 [facility] History of tobacco use QUIT TOBACCO >7 YEARS AGO 10/20/2017 [facility] History of tobacco use QUIT TOBACCO >7 YEARS AGO 11/14/2009 [facility] History of tobacco use QUIT TOBACCO >7 YEARS AGO 12/01/2008 [facility] History of tobacco use QUIT TOBACCO >7 YEARS AGO 02/08/2008 [facility] History of tobacco use QUIT TOBACCO >7 YEARS AGO 01/26/2007 [facility] History of tobacco use CURRENT NON-TOBACCO USER-HX OF USE 07/29/2006 [facility] History of tobacco use CURRENT NON-TOBACCO USER-HX OF USE 07/31/2005 [facility] History of tobacco use CURRENT NON-TOBACCO USER-HX OF USE 12/16/2004 Stopped 1982 [facility] History of tobacco use CURRENT NON-TOBACCO USER-HX OF USE 09/10/2004 [facility] History of tobacco use CURRENT NON-TOBACCO USER-HX OF USE 02/19/2004 Stopped in 1981 after smoking for 20 years Smoked 1 ppd SOme cigars and pipe [facility] Plan of Care List of future care activities from Department [facility] Affairs facilities. Additional future care activities may be listed in the Assessment and Plan section. Date/Time Care Activity Care Activity Detail Facili ty 06/08/2025 AMBULATORY - MEDICINE AMBULATORY - MEDICI NE [facility] Advance Directives List of completed, amended, or rescinded Advance Directives on record at Department [facility] facilities. An actual copy of the Directive is not included. Date Advance Directive Provider Source 11/21/2011 ADVANCE DIRECTIVE DISCUSSION [facility]
[2025-05-18 23:16] VITALS: BP 163/67; PULSE 99; RESP 18; TEMP 36.8; O2SAT 98
--- OUTSIDE RECORDS SUMMARY | 2025-05-18 23:29 | XMS_ITS | Encounter Summary ---
Author Name [facility] [place] [facility] [place] Address [address] [place] [address] Care Team Providers Care Security Site Supervisor Name Role Phone MEG JUSTIN Primary Care [...] PART B Jul 24, 2017 PART B [id number] BERTHA SAMPSON PATIENT MEDICARE (WNR) MEDICARE ([place]) PART A Jul 24, 2017 PART A [id number] BERTHA SAMPSON PATIENT MEDICARE (WNR) MEDICARE (M) PART A Jul 24, 2017 PART A [id number] BERTHA SAMPSON PATIENT MEDICARE (WNR) MEDICARE (M) PART B Jul 24, 2017 PART B [id number] [phone] BERTHA SAMPSON PATIENT -FO R-LIFE [facility] RE FOR LIFE WNR Jul 24, 2017 FOR LIFE [id number] [phone] BERTHA SAMPSON PATIENT Selected Encounter This section includes the information on record at [place] for the Encounter. Date/Time Encounter Type Encounter Description Reason Pro vider Source IHE Encounter Template Text not used by [facility] Advance Directives: All historical and current Section Date Range: From patient's date of to the date document was created. This section includes ALL of a patient's completed or amended [place] Advance and Rescinded Directives. The entries below indicate that a directive exists for the patient, but an actual copy is not included with this document. The data comes from all [place] facilities. Date Advance Directives Provider Source Nov 21, 2011 ADVANCE DIRECTIVE DISCUSSION [facility]
[2025-05-19] MEDS: amoxicillin-clav 875-125 mg Tablet 1 TAB PO (04:28)
[2025-05-19] MEDS: tetanus-dipt-pertussis 0.5 mL SDV IM (04:29)
--- NOTE | 2025-05-19 18:24 | W.ED.WOUNDLC ---
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 The bite resulted in a wound on the hand, specifically over the knuckle, and a scratch on the leg from gravel. The hand wound is still bleeding slightly, while the leg wound is more superficial but remains the most painful. Patient reports easy bruising and notes some purplish discoloration around the wounds. No known broken bones, but the hand is sore and bruised. Patient cleaned the wounds at home with water but did not use any antiseptics. No mention of systemic symptoms such as fever or malaise. Patient expresses concern about infection risk and wound healing. Related Data Home Medications ?Medication ?Instructions ?Recorded ?Confirmed aspirin 81 mg tablet,delayed 81 mg PO DAILY 07/03/20 05/02/25 release (Adult Low Dose Aspirin) isosorbide mononitrate 30 mg 30 mg PO DAILY 01/24/21 05/02/25 tablet,extended release 24 hr nitroglycerin 0.4 mg sublingual 0.4 mg sublingual Q5M PRN Chest 01/24/21 05/02/25 tablet Pain simvastatin 20 mg tablet 20 mg PO DAILY 01/24/21 05/02/25 nifedipine 30 mg tablet,extended 30 mg PO DAILY 05/03/24 05/02/25 release acetaminophen 500 mg capsule 500 mg PO .[id number] osteoarthritis 05/02/25 05/02/25 Previous Rx's ?Medication ?Instructions ?Recorded Work shoes with Custom Molded #1 ea 09/13/21 Orthotics Work shoes with Custom Molded #1 ea 11/10/22 Orthotics Orthopedic boots with custom #1 ea 12/15/24 insoles Orthopedic shoes with custom #1 ea 12/15/24 insoles amoxicillin 875 mg-potassium 1 tab PO BID #20 tabs 03/07/25 clavulanate 125 mg tablet cyclobenzaprine 10 mg tablet 10 mg PO TID PRN muscle spasm #90 03/07/25 tabs amoxicillin 875 mg-potassium 1 tab PO Q12H 10 days #20 tabs 06/27/25 clavulanate 125 mg tablet Allergies Allergy/AdvReac Type Severity Reaction Status Date / Time No Known Allergies Allergy Verified 03/07/25 14:47 PFSH ED PFSH: Medical History Raynaud's syndrome History of coronary angiogram CAD (coronary artery disease) Hyperlipidemia Low back pain Accelerated hypertension High cholesterol Blood vessel spasm Surgical History History of colonoscopy Hx of hernia repair Family History Grandmother Diabetes Grandfather CAD (coronary artery disease) Mother Diabetes Denies family history of Hypertension Social History Smoking and tobacco/nicotine status: former use of tobacco/nicotine Alcohol intake: former Substance/Drug Use: never Current occupational status: retired Physical Exam Const: COMMON NORMALS: no acute distress, patient oriented x3 and alert HENMT: COMMON NORMALS: normocephalic and atraumatic HEAD & SCALP: normocephalic and atraumatic Eye: COMMON NORMALS: Equal, round and reactive pupils present, EOMs intact bilaterally and no scleral icterus PUPIL: Yes Equal, round and reactive pupils present Resp: COMMON NORMALS: normal respiratory effort and No retractions Cardio: COMMON NORMALS: regular rate, regular rhythm and No murmurs present (Cardio) RATE: regular rate RHYTHM: regular rhythm GI: COMMON NORMALS: Normal to inspection, nondistended, normoactive bowel sounds present, Soft to palpation and non-tender PALPATION: Yes Soft to palpation Neuro: COMMON NORMALS: patient oriented x3 SENSORIUM/ORIENTATION: Yes alert Skin: OTHER: Multiple abrasions of the bilateral hands. There is a 1.5 cm superficial laceration of the thenar aspect of the right thumb adjacent to the nail but not including the nail which unfortunate does not appear to be amenable to primary repair. The distal edges already becoming dusky and it is only partial-thickness and would not benefit from stitches. Her multiple abrasions on the dorsum of the left hand as well as up single puncture wound overlying the index finger MCP joint that does not appear to communicate with the joint. Though there is significant swelling and ecchymosis of the dorsum of the left hand there is no pain with palpation of the metacarpal bones and full range of motion of all fingers. He can fully extend and flex all fingers at all joints. Additionally, there is extensive abrasion from falling on the gravel road on the right vora. No laceration amenable to primary repair. No foreign body noted. Course Vital Signs: Vital signs: Vital Signs Temperature 98.3 F 05/18/25 23:16 Pulse Rate 99 05/18/25 23:16 Respiratory Rate 18 05/18/25 23:16 Blood Pressure 163/67 05/18/25 23:16 Pulse Oximetry 98 05/18/25 23:16 Oxygen Delivery Me thod Room Air 05/18/25 23:16 MDM - Wound/Laceration Medical Decision Making Patient remained hemodynamically stable throughout ED course. His wounds were thoroughly irrigated using dilute Betadine and saline and then rinsed with saline and dressed. He was given first dose of Augmentin here and a prescription for the same. Unfortunately, none of his wounds appear they would benefit from primary repair thus no sutures were placed. He was cautioned that if he sees any spreading of redness, warmth, or streaking up the arms he should return immediately as he could be experiencing flexor or extensor tenosynovitis which could require IV antibiotics and possibly even surgical intervention. He shows good understanding and agrees to the plan and will be discharged in stable and improved condition No radiology studies performed this visit Discharge Plan Discharge Patient Disposition: Home Clinical Impression: Dog bite of right thumb, Dog bite of left hand, Multiple abrasions Condition: Stable Prescriptions: New amoxicillin-pot clavulanate 875-125 mg tablet 1 tab PO Q12H 10 Days Qty: 20 0RF No Action aspirin [Adult Low Dose Aspirin] 81 mg tablet,delayed release (DR/EC) 81 mg PO DAILY isosorbide mononitrate 30 mg tablet extended release 24 hr 30 mg PO DAILY simvastatin 20 mg tablet 20 mg PO DAILY nitroglycerin 0.4 mg tablet, sublingual 0.4 mg sublingual Q5M PRN (Reason: Chest Pain) Rx Instructions: do not exceed 3 doses per episode (DME) Orthopedic boots with custom insoles See Rx Instructions .Route .MEDSUPPLY Qty: 1 0RF Rx Instructions: As directed by [facility] ([facility]) Orthopedic shoes with custom insoles See Rx Instructions .Route .MEDSUPPLY Qty: 1 0RF Rx Instructions: As directed by [facility] acetaminophen 500 mg capsule 500 mg PO .[id number] ([facility]) Work shoes with Custom Molded Orthotics See Rx Instructions .Route .MEDSUPPLY Qty: 1 0RF Rx Instructions: As directed by [facility] nifedipine 30 mg tablet extended release 30 mg PO DAILY amoxicillin-pot clavulanate 875-125 mg tablet 1 tab PO BID Qty: 20 0RF ([facility]) Work shoes with Custom Molded Orthotics See Rx Instructions .Route .MEDSUPPLY Qty: 1 0RF Rx Instructions: As directed [facility] cyclobenzaprine 10 mg tablet 10 mg PO TID PRN (Reason: muscle spasm) Qty: 90 0RF Discharge Orders: Discharge ED (Routine); Ordered 05/19/25 Ordered By: Boubacar Sheldon Referrals: Lazaro Crowe MD [Primary Care Provider, Family Practice] Discharge Diet: Usual diet Discharge Activity: Increase activity as tolerated Patient Instructions: Animal Bite (ED), Patient Portal & Katt Instructions Activity Restrictions/Additional Instructions: Please wash your wounds with soap and water at least twice daily. Please take the prescribed antibiotic to avoid infection of the multiple superficial lacerations and abrasions. Please return to the emergency department if symptoms are getting worse and not better over the next few days. Print Language: Macedonian Coding Level of Care Code ED Operating Systems Programmer for Demetris Garcia
== END 2025-05-19 05:43 | disposition home or self-care (01) ==
PROVIDERS: Emergency Provider Student in an Organized Health Care Education/Training Program; PCP Family Medicine Geriatric Medicine
DX: S61.452A Open bite of left hand, initial encounter (principal); S61.051A Open bite of right thumb without damage to nail, initial encounter; Z79.82 Long term (current) use of aspirin; Z87.891 Personal history of nicotine dependence; I25.10 Atherosclerotic heart disease of native coronary artery without angina pectoris; E78.5 Hyperlipidemia, unspecified; W54.0XXA Bitten by dog, initial encounter
CPT/HCPCS: 90471; 90715; 99283; J9999